=== PATIENT | female | born 1935 | race Caucasian/White ===

== ENCOUNTER 2017-08-18 08:53 | Outpatient (CLI) | payer MEDICARE ==
[~2017-08-18 08:53] MED LIST: AMITRIPTYLINE H10 MG ORAL; AZITHROMYCIN250 MG ORAL; CEPHALEXIN500 MG ORAL; COUMADIN6 MG ORAL; CRANBERRY500 M3 PO; FOLIC ACID1 M1 PO; LEVOTHYROXINE50 MCG ORAL; LOVASTATIN10 MG ORAL; METHOTREXA25 MG/1 ML IJ; SEROQUEL50 MG ORAL; VENLAFAXINE HCL25 MG ORAL; VITAMIN D1000 UNI1 ORAL
[2017-08-18 09:42] LABS: BASOPHILS % (AUTO) 0.9 % (0.0-2.0); EOSINOPHILS % (AUTO) 3.4 % (0.0-3.0); HEMATOCRIT 40.6 % (37.0-47.0); HEMOGLOBIN 13.4 G/DL (12.0-16.0); LYMPHOCYTES % (AUTO) 20.2 % (20.0-45.0); MEAN CORPUSCULAR VOLUME 101 FL (80-99); MONOCYTES % (AUTO) 7.1 % (1.0-10.0); NEUTROPHILS % (AUTO) 68.4 % (45.0-75.0); PLATELET COUNT 238 K/UL (150-450); RED BLOOD COUNT 4.04 M/UL (4.20-5.40); RED CELL DISTRIBUTION WIDTH 13.1 % (11.6-14.8); WHITE BLOOD COUNT 8.9 K/UL (4.8-10.8)
[2017-08-18 09:52] LABS: ALANINE AMINOTRANSFERASE 23 U/L (12-78); ALBUMIN/GLOBULIN RATIO 0.7 (1.0-2.7); ALKALINE PHOSPHATASE 89 U/L (46-116); ANION GAP 2 mmol/L (5-15); ASPARTATE AMINO TRANSFERASE 26 U/L (15-37); BILIRUBIN,TOTAL 0.4 MG/DL (0.2-1.0); BLOOD UREA NITROGEN 19 mg/dL (7-18); CALCIUM 9.4 MG/DL (8.5-10.1); CARBON DIOXIDE 34 MMOL/L (21-32); CHLORIDE 105 MMOL/L (98-107); CREATININE 1.3 MG/DL (0.55-1.30); POTASSIUM 3.8 MMOL/L (3.5-5.1); SODIUM 141 MMOL/L (136-145)
--- NOTE | 2017-08-18 11:16 | Diagnostic Imaging Report ---
Indication: Cough Comparison: 07/21/2014 A single view chest radiograph was obtained. Findings: Lung volumes are low. Reticular markings in the lung appear prominent. Heart is mildly enlarged. Bones are osteopenic. IMPRESSION: Interstitial prominence nonspecific in nature. No significant change
== END 2017-08-18 10:53 | disposition home or self-care (01) ==
LOC: RAD 08:53
DX: R05 Cough (principal); I51.7 Cardiomegaly; M85.80 Other specified disorders of bone density and structure, unspecified site
CPT/HCPCS: 36415; 71045; 80053; 83880; 85025

== ENCOUNTER 2018-11-08 12:09 | Outpatient (CLI) | payer MEDICARE ==
[~2018-11-08 12:09] MED LIST changes: +KEPPRA500 M4 ORAL; +LEXAPRO10 MG ORAL; +NEUDEXTA
[2018-11-08 12:53] LABS: BASOPHILS % (AUTO) 0.8 % (0.0-2.0); EOSINOPHILS % (AUTO) 1.6 % (0.0-3.0); HEMATOCRIT 44.3 % (37.0-47.0); HEMOGLOBIN 14.9 G/DL (12.0-16.0); LYMPHOCYTES % (AUTO) 17.8 % (20.0-45.0); MEAN CORPUSCULAR VOLUME 97 FL (80-99); MONOCYTES % (AUTO) 7.3 % (1.0-10.0); NEUTROPHILS % (AUTO) 72.5 % (45.0-75.0); PLATELET COUNT 291 K/UL (150-450); RED BLOOD COUNT 4.56 M/UL (4.20-5.40); RED CELL DISTRIBUTION WIDTH 12.6 % (11.6-14.8); WHITE BLOOD COUNT 10.7 K/UL (4.8-10.8)
--- NOTE | 2018-11-08 12:54 | Diagnostic Imaging Report ---
Indication: Cough Comparison: August 18, 2017 A single view chest radiograph was obtained. Findings: There is prominence of the pulmonary interstitium nonspecific in nature. Heart size is normal. Lung volumes are low. There is radiopacity projected over the upper lumbar spine consistent with previous kyphoplasty. IMPRESSION: No acute disease
[2018-11-08 13:18] LABS: ALANINE AMINOTRANSFERASE 21 U/L (12-78); ALBUMIN 3.8 G/DL (3.4-5.0); ALBUMIN/GLOBULIN RATIO 0.8 (1.0-2.7); ALKALINE PHOSPHATASE 90 U/L (46-116); ANION GAP 6 mmol/L (5-15); ASPARTATE AMINO TRANSFERASE 23 U/L (15-37); BILIRUBIN,TOTAL 0.5 MG/DL (0.2-1.0); BLOOD UREA NITROGEN 29 mg/dL (7-18); CALCIUM 10.3 MG/DL (8.5-10.1); CARBON DIOXIDE 33 MMOL/L (21-32); CHLORIDE 105 MMOL/L (98-107); CREATININE 1.2 MG/DL (0.55-1.30); POTASSIUM 3.8 MMOL/L (3.5-5.1); SODIUM 144 MMOL/L (136-145)
== END 2018-11-08 14:09 | disposition home or self-care (01) ==
LOC: RAD 12:09
DX: R05 Cough (principal); E03.9 Hypothyroidism, unspecified; E53.8 Deficiency of other specified B group vitamins
CPT/HCPCS: 36415; 71045; 80053; 82607; 83880; 84439; 84443; 85025; 85610

== ENCOUNTER 2019-02-22 11:05 | Inpatient (IN) | payer MEDICARE, OTHER ==
[~2019-02-22] VITALS: Ht 162.6 cm; Wt 63.5 kg
[2019-02-22 11:19] VITALS: BP 113/58
--- NOTE | 2019-02-22 11:22 | NUR ---
ED Nurse Note: PT BROUGHT IN TO ER TODAY FROM HOME BY . AOX0 AND NONRESPONSIVE TO QUESTIONS. PER , PT HAS ADVANCED DEMENTIA AND DOES NOT SPEAK. PT BROUGHT IN PER DR DEE'S RECOMMENDATION DUE TO INCREASING LETHARGY AND INCREASED WBC. AT BEDSIDE, PT IS TACHYCARDIC - HR: 151, TACHYPNEIC - RR: 37, O2SAT 84%, AND FEBRILE - RECTAL TEMP: 102.0. PT PLACED ON 4L VIA NASAL CANNULA, O2 SAT 95% ON 4L. DR SHELTON AWARE OF PT'S VITALS AND AT BEDSIDE FOR EVALUATION. SKIN ASSESSMENT: BLANCHABLE REDNESS NOTED TO PT'S COCCYX AREA.
[2019-02-22] MEDS ORDERED: Acetaminophen 650 MG SUPP RECTAL ONE (11:30)
[2019-02-22 11:46] LABS: HEMATOCRIT 37.3 % (37.0-47.0); HEMOGLOBIN 12.1 G/DL (12.0-16.0); MEAN CORPUSCULAR VOLUME 98 FL (80-99); PLATELET COUNT 228 K/UL (150-450); RED BLOOD COUNT 3.81 M/UL (4.20-5.40); RED CELL DISTRIBUTION WIDTH 13.5 % (11.6-14.8); WHITE BLOOD COUNT 17.3 K/UL (4.8-10.8)
--- NOTE | 2019-02-22 11:50 | NUR ---
ED Nurse Note: XRAY AT BEDSIDE.
--- NOTE | 2019-02-22 11:52 | NUR ---
ED Nurse Note: BOX CATHETER ORDERED BY DR SHELTON. 16F BOX CATHETER PLACED USING STERILE TECHNIQUE. BOX CATHETER DRAINING YELLOW URINE. PT TOLERATED WELL.
[2019-02-22 11:56] LABS: INR 2.9 (0.9-1.1)
[2019-02-22 11:58] LABS: ANION GAP 11 mmol/L (5-15); BLOOD UREA NITROGEN 36 mg/dL (7-18); CALCIUM 9.5 MG/DL (8.5-10.1); CARBON DIOXIDE 28 MMOL/L (21-32); CHLORIDE 106 MMOL/L (98-107); POTASSIUM 3.1 MMOL/L (3.5-5.1); SODIUM 144 MMOL/L (136-145)
[2019-02-22] MEDS ORDERED: Piperacillin/Tazobactam 3.375 GM in NS 110 ML IVPB ONE (12:00)
[2019-02-22 12:01] LABS: APPEARANCE,URINE CLEAR; BILIRUBIN, URINE NEGATIVE (NEGATIVE); GLUCOSE, URINE (UA) NEGATIVE (NEGATIVE); KETONES,URINE NEGATIVE (NEGATIVE); LEUKOCYTE ESTERASE ,URINE 3+ (NEGATIVE); NITRITE,URINE POSITIVE (NEGATIVE); PH,URINE 5 (4.5-8.0); PROTEIN,URINE 3+ (NEGATIVE); UROBILINOGEN,URINE NORMAL MG/DL (0.0-1.0)
[2019-02-22 12:05] LABS: COLOR,URINE YELLOW
[2019-02-22 12:12] LABS: ALANINE AMINOTRANSFERASE 29 U/L (12-78); ALBUMIN 2.7 G/DL (3.4-5.0); ALBUMIN/GLOBULIN RATIO 0.5 (1.0-2.7); ALKALINE PHOSPHATASE 70 U/L (46-116); ASPARTATE AMINO TRANSFERASE 29 U/L (15-37); BILIRUBIN,TOTAL 0.5 MG/DL (0.2-1.0); CKMB < 0.5 NG/ML (0.0-3.6); CREATINE KINASE 63 U/L (26-308)
--- NOTE | 2019-02-22 12:29 | NUR ---
ED Nurse Note: LACTIC REFLEX COLLECTED AND SENT TO LAB.
--- NOTE | 2019-02-22 12:30 | Diagnostic Imaging Report ---
Indication: Cough Comparison: 11/08/2018 A single view chest radiograph was obtained. Findings: Lung volumes are low. Senescent changes noted within the lungs. Heart size is normal. Aorta is ectatic. The bones are osteopenic. Kyphoplasty noted in one of the upper lumbar levels. IMPRESSION: No acute cardiopulmonary disease
[2019-02-22] MEDS ORDERED: WARFARIN SODIUM3 MG ORAL (12:33)
--- NOTE | 2019-02-22 13:10 | NUR ---
ED Nurse Note: DR GALDINO DEE AT BEDSIDE.
[2019-02-22 13:17] VITALS: BP 106/54
--- NOTE | 2019-02-22 13:44 | NUR ---
ED Nurse Note: TELE UNIT CALLED FOR PT REPORT. REPORT GIVEN TO GREGORIA RODRIGUEZ. PT TAKEN UP TO TELE UNIT VIA GURNEY ON HONEY PRODUCER WITH ALL BELONGINGS ACCOMPANIED BY PRIMARY RN AND EMT.
--- NOTE | 2019-02-22 13:52 | Emergency Room Report ---
History of Present Illness General Chief Complaint: Altered Mental Status Source: Patient, Family Member Present Illness HPI Patient presents with reports of elevated white blood cell count evidence of UTI There was report of possible change in mental status however patient's has presented and reports that the patient has severe Alzheimer's And is at her usual mental status Patient presents febrile Again the patient herself is not verbal therefore it does limit the history of present illness There was no reports of vomiting or diarrhea no reports of any rash Allergies: Coded Allergies: CODEINE (Verified Allergy, Unknown, 11/03/17) SULFA (SULFONAMIDE ANTIBIOTICS) (Verified Allergy, Unknown, 11/03/17) SULFAMETHOXAZOLE (Verified Allergy, Unknown, 11/03/17) TRIMETHOPRIM (Verified Allergy, Unknown, 11/03/17) Patient History Limited by: medical condition Past Medical History: see triage record Reviewed Nursing Documentation: PMH: Agreed; PSxH: Agreed Nursing Documentation-PMH Past Medical History: No History, Except For Hx Cardiac Problems: No - DVT on LE Hx Hypertension: No - Rheumatoid arthritis Hx Pacemaker: No Hx Asthma: No Hx COPD: No Hx Diabetes: No Hx Cancer: No Hx Gastrointestinal Problems: No Hx Dialysis: No History Of Psychiatric Problem: No Hx Neurological Problems: Yes - Alzheimer's Hx Cerebrovascular Accident: No Hx Alzheimer's Disease: Yes Hx Seizures: Yes - years ago Review of Systems All Other Systems: limited - Other than the ones mentioned in the history of present illness all others are reviewed however they do stay limited due to the patient's mental status Physical Exam Vital Signs Date Time Temp Pulse Resp B/P (MAP) Pulse Ox O2 Delivery O2 Flow Rate FiO2 02/22/19 11:12 98.1 152 30 113/58 (76) 85 Room Air 02/22/19 11:19 4.0 Sp02 EP Interpretation: reviewed, normal General Appearance: mild distress - tachypneic appears weak Head: normocephalic, atraumatic Eyes: bilateral eye PERRL ENT: dry mucus membranes Neck: supple Respiratory: lungs clear - However mildly tachypneic appearing Cardiovascular #1: tachycardia Gastrointestinal: non tender, soft Musculoskeletal: other - Obvious edema patient attempts to move her right arm however significant lack of evaluation Neurologic: responsive - to Physical stimuli Skin: no rash Lymphatic: no adenopathy Procedures Critical Care Time Critical Care Time 50 minutes for multiple re-evaluations critical presentation is concerning for cardiac cardiopulmonary arrest not including any procedural time Medical Decision Making Diagnostic Impression: Primary Impression: Sepsis Additional Impression: UTI (urinary tract infection) ER Course Multiple differentials and consideration including but not limited to infectious , such as sepsis severe sepsis, other neurological pathology as well Patient's white blood cell count is elevated urine sample does show significant infectious pathology Initially CT was ordered however the reports that the patient is at baseline mental status it was discussed that the patient does have an INR that makes it more concerning for intracranial hemorrhage however in discussion with family as well and the primary physician this will be held Patient's tachycardia has improved Still remains critical secondary to the significant infectious pathology and admitted to a telemetry bed for further care in poor prognosis Labs Test 02/22/19 11:34 02/22/19 11:51 02/22/19 12:24 White Blood Count 17.3 K/UL (4.8-10.8) Red Blood Count 3.81 M/UL (4.20-5.40) Hemoglobin 12.1 G/DL (12.0-16.0) Hematocrit 37.3 % (37.0-47.0) Mean Corpuscular Volume 98 FL (80-99) Mean Corpuscular Hemoglobin 31.8 PG (27.0-31.0) Mean Corpuscular Hemoglobin Concent 32.5 G/DL (32.0-36.0) Red Cell Distribution Width 13.5 % (11.6-14.8) Platelet Count 228 K/UL (150-450) Mean Platelet Volume 6.1 FL (6.5-10.1) Neutrophils (%) (Auto) % (45.0-75.0) Lymphocytes (%) (Auto) % (20.0-45.0) Monocytes (%) (Auto) % (1.0-10.0) Eosinophils (%) (Auto) % (0.0-3.0) Basophils (%) (Auto) % (0.0-2.0) Differential Total Cells Counted 100 Neutrophils % (Manual) 90 % (45-75) Lymphocytes % (Manual) 5 % (20-45) Monocytes % (Manual) 5 % (1-10) Eosinophils % (Manual) 0 % (0-3) Basophils % (Manual) 0 % (0-2) Band Neutrophils 0 % (0-8) Platelet Estimate Adequate Platelet Morphology Normal Red Blood Cell Morphology Normal Prothrombin Time 28.9 SEC (9.30-11.50) Prothromb Time International Ratio 2.9 (0.9-1.1) Activated Partial Thromboplast Time 51 SEC (23-33) Sodium Level 144 MMOL/L (136-145) Potassium Level 3.1 MMOL/L (3.5-5.1) Chloride Level 106 MMOL/L (98-107) Carbon Dioxide Level 28 MMOL/L (21-32) Anion Gap 11 mmol/L (5-15) Blood Urea Nitrogen 36 mg/dL (7-18) Creatinine 2.0 MG/DL (0.55-1.30) Estimat Glomerular Filtration Rate mL/min (>60) Glucose Level 131 MG/DL (74-106) Lactic Acid Level 2.90 mmol/L (0.4-2.0) 1.80 mmol/L (0.66-2.22) Calcium Level 9.5 MG/DL (8.5-10.1) Total Bilirubin 0.5 MG/DL (0.2-1.0) Aspartate Amino Transf (AST/SGOT) 29 U/L (15-37) Alanine Aminotransferase (ALT/SGPT) 29 U/L (12-78) Alkaline Phosphatase 70 U/L (46-116) Total Creatine Kinase 63 U/L (26-308) Creatine Kinase MB < 0.5 NG/ML (0.0-3.6) Creatine Kinase MB Relative Index Troponin I 0.021 ng/mL (0.000-0.056) Pro-B-Type Natriuretic Peptide 1911 pg/mL (0-125) Total Protein 8.3 G/DL (6.4-8.2) Albumin 2.7 G/DL (3.4-5.0) Globulin 5.6 g/dL Albumin/Globulin Ratio 0.5 (1.0-2.7) Lipase 298 U/L (73-393) Urine Color Yellow Urine Appearance Clear Urine pH 5 (4.5-8.0) Urine Specific [place] 1.015 (1.005-1.035) Urine Protein 3+ (NEGATIVE) Urine Glucose (UA) Negative (NEGATIVE) Urine Ketones Negative (NEGATIVE) Urine Blood 5+ (NEGATIVE) Urine Nitrite Positive (NEGATIVE) Urine Bilirubin Negative (NEGATIVE) Urine Urobilinogen Normal MG/DL (0.0-1.0) Urine Leukocyte Esterase 3+ (NEGATIVE) Urine RBC 2-4 /HPF (0 - 2) Urine WBC 15-20 /HPF (0 - 2) Urine Squamous Epithelial Cells Few /LPF (NONE/OCC) Urine Bacteria Moderate /HPF (NONE) EKG Diagnostic Results Rate: tachycardiac Rhythm: other ST Segments: other - Specific ST changes Rhythm Strip Diag. Results EP Interpretation: yes Rate: 120 Rhythm: no PVC's, no ectopy Chest X-Ray Diagnostic Results Chest X-Ray Diagnostic Results : Chest X-Ray Ordered: Yes # of Views/Limited/Complete: 1 View Indication: Shortness of Breath EP Interpretation: Yes Interpretation: no consolidation, no effusion, no pneumothorax Impression: No acute disease - Patient right lower lobe haziness questionable mild elevated right hemidiaphragm Electronically Signed by: DO Francois Madrid Vital Signs Date Time Temp Pulse Resp B/P (MAP) Pulse Ox O2 Delivery O2 Flow Rate FiO2 02/22/19 13:45 119 31 108/59 92 Nasal Cannula 4.0 02/22/19 13:17 101.0 Status: improved Disposition: ADMITTED INPATIENT Condition: Critical Referrals: Kolby Salazar MD (PCP) Karlos Lucas DO Feb 22, 2019 13:52
[2019-02-22 14:00] VITALS: BP 112/69
--- NOTE | 2019-02-22 14:00 | NUR ---
NURSE NOTES: Patient arrived from ER with . Belonging checklist was signed. v/s taken. conveyor monitor placed. Patient is tachypnea sat 90% on 4L. Patient is alert and aphasic. Skin is intact. Patient was changed. Will continue plan of care.
[2019-02-22 16:00] VITALS: BP 109/70
--- NOTE | 2019-02-22 16:00 | NUR ---
NURSE NOTES: Transferred patient to 220-2 from 201-1.
--- NOTE | 2019-02-22 16:15 | History & Physical ---
History and Physical History & Physicial Date of Admission: February 22, 2019. Patient Identification: Ms. Snider is an 83-year-old woman who was brought to the emergency department because of increased lethargy and hypoxia. History of Present Illness: Ms. Snider is a patient with multiple chronic medical problems and as a result significant functional deficits. Most notably she has advanced dementia and requires 24-hour care for all ADLs. Yesterday the patient was seen in the office with some lethargy and decreased responsiveness. The symptoms have begun roughly 2 days before, at which time laboratory studies were obtained including a urinalysis which revealed pyuria with 20-30 white cells, 3+ leukocyte esterase, and significant evidence of heme in the urine. These findings were suggestive of urinary tract infection. However the patient's caregivers and reported that the patient had adequate fluid intake and oral intake. There also was no reported fever. Therefore, it was elected to postpone this antibiotic therapy until culture results return. Patient was to have forced fluids and cranberry extract. This morning the patient was noted to be considerably more lethargic and the home health nurse documented oxygen saturation as low as 84%. Is recommended the patient be brought to the emergency department for further evaluation. In the emergency department the patient was noted to be febrile, and lab values revealed significant leukocytosis with left shift, a lactate of 2.9, acute kidney injury, and a fever. Patient was felt to have evidence of severe sepsis with a urinary source most likely. Patient was given intravenous hydration and a dose of Zosyn in the emergency department. She is admitted for further evaluation and treatment. Currently the patient is seen lying in bed. 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 Patient's initially was tachycardic but this is slowed somewhat with the input intravenous hydration. She was also somewhat tachypneic but does not appear in respiratory distress. Increased respiratory rate is most likely associated with septic picture as well. Patient's caregiver and report no other new symptomatology, with no evident physical distress or symptoms suggestive of chest pain. Subsequent to her initial presentation, the results of the urine culture were obtained at the office, revealing resistance to Unasyn and ampicillin as well as trimethoprim sulfa and Macrodantin. Past Medical History: 1. History of prior urinary tract infections with associated encephalopathy and systemic symptoms. 2. Advanced cognitive dysfunction primarily due to Alzheimer disease. Consider contributing components of small vessel cerebrovascular disease and B12 deficiency. 3. Multifactorial gait disorder. 4. History of fall with rib fractures. 5. History of rheumatoid arthritis, on Simponi. 6. Hypothyroidism. 7. Hyperlipidemia. 8. Seizure disorder. 9. Osteopenia. 10. History of migraines. 11. History of depression with anxiety and paranoia. 12. 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 13. 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 14. Mitral valve prolapse. 15. Status post cataract surgery, left eye. 16. Status post appendectomy. 17. Osteoporosis, treated with Denosumab. Medications: 1. Vitamin D3 3000 units qod. 2. Cyanocobalamin 1000 mcg IM monthly. 3. Prolia every 6 months, last administered approximately 3 months ago 4. Nuedexta twice daily. 5. Lexapro 20 mg daily. 6. Folate 1 mg daily. 7. Simponi monthly per Dr. Nava. 8. Levothyroxine 50 mcg 6 times a week. 9. Lovastatin 40 mg nightly. 10. Belsomra 10 mg nightly. 11. Warfarin 3 mg daily except for Wednesdays, 4 mg on Wednesdays. 12. Keppra 500 mg twice daily. 13. Cranberry pills. Allergies: Sulfa drugs including trimethoprim/sulfa. Codeine. Social History: The patient lives at home with her and there is a part-time caregiver who assists in care. She is functionally entirely dependent at this point requiring full-time care with all activities in daily living. Review of Systems: The patient is unable to respond to any questions. Does have advanced dementia. Her clinical changes are essentially as described above and reported by the son. Physical Examination: Blood pressure 113/58, heart rate 150 and regular, respiratory rate 37, temperature 102.0 rectally, oxygen saturation 95% on 4 L of oxygen. Generally: Lethargic with. No evidence of recognition or attempt to communicate. Head and neck: Normocephalic, atraumatic. Normal range of motion with no evident masses. Chest: Diminished and distant breath sounds no wheezing. Cardiovascular: Regular rhythm, normal systolic murmur not appreciated. Abdomen: Normal bowel sounds soft without masses or organomegaly. Patient appears to respond somewhat to palpation in the suprapubic area suggesting possible tenderness. Extremities: No apparent calf tenderness, no distal edema. Neurologic: Limited examination due to mental status but no overt localization. Skin: Superficial sacrococcygeal erythema noted. Laboratory Data: WBC 17.3, hematocrit 37.3, MCV 98, platelet count 228, 90% neutrophils. Sodium 144, potassium 3.1, chloride 106, bicarb 28, BUN 36, creatinine 2.0, glucose 131 , lactate 2.9 with repeat 1.8, calcium 9.5, total bilirubin 0.5, AST 29, ALT 29 , alkaline phosphatase 70 troponin 0 0.021, proBNP 1911, total protein 8.3, albumin 2.7, lipase 298. INR 2.9, PTT 51. Urinalysis is notable for 3+ protein 5+ blood positive nitrates 3+ leukocyte esterase 2-4 RBCs 15-20 WBCs and moderate bacteria. Chest x-ray: Low lung volumes chronic elevation of right hemidiaphragm, no acute cardiopulmonary disease noted. Impression/Plan: 1. Probable severe sepsis due to E. coli urinary tract infection. Given sensitivities from prior culture will discontinue Zosyn and start ceftriaxone. 2. Intravascular volume depletion associated with sepsis. Continue intravenous hydration with electrolyte supplementation. 3. Acute kidney injury, likely prerenal. 4. Encephalopathy associated with sepsis. 5. Hypoxia likely associated with hypoventilation due to RUG DYER HELPER effects of sepsis. Monitor and supplement as necessary. 6. Multiple chronic medical problems adequately controlled on current therapy. Hold nonformulary medications. Patient's status treatment plans and prognosis were discussed in detail with the patient's who concurs with proceeding in this fashion. Additional therapy and diagnostic studies will be considered depending on the patient's initial response to therapy and laboratory results. Kolby Salazar MD Feb 22, 2019 16:15
[2019-02-22] MEDS ORDERED: Warfarin Sodium 3mg ORAL SCH (17:00)
[2019-02-22] MEDS: D5 1/2NS w/KCl 20mEq 1,000 ML IV SCH (17:34)
[2019-02-22] MEDS: cefTRIAXone 1 GM in D5W 55 ML IVPB SCH (17:34)
--- NOTE | 2019-02-22 19:28 | NUR ---
NURSE NOTES: Gave report to [place].
--- NOTE | 2019-02-22 19:28 | NUR ---
NURSE NOTES: Received patient from Malachi KINNEY. Patient in bed, private caregiver at bedside. On 4L NC, no s/s of respiratory distress. Non-verbal, eye tracking only. Right forearm 20 gauge iv intact with 1/2 NS 20MEQ KCL infusing at 100m/hr. Bed in low position, locked, bed alarm on, call light within reach.
[2019-02-22 20:00] VITALS: BP 126/65
[2019-02-22] MEDS: Nuedexta Capsule 20/10mg ORAL SCH (20:19)
[2019-02-22 22:20] VITALS: BP 128/79
--- NOTE | 2019-02-22 22:25 | NUR ---
NURSE NOTES: Patient had a episode of sinus tachycardia 130's. No change in LOC. BP 128/79, HR 136, RR 26, 94% on 4L NC, no signs of distress.
[2019-02-23] VITALS: BP 119/76
[2019-02-23] MEDS: D5 1/2NS w/KCl 20mEq 1,000 ML IV SCH ×3 (03:06→23:24)
[2019-02-23 04:00] VITALS: BP 124/75
[2019-02-23 08:00] VITALS: BP 129/61
[2019-02-23 08:12] LABS: BASOPHILS % (AUTO) 0.2 % (0.0-2.0); EOSINOPHILS % (AUTO) 1.3 % (0.0-3.0); HEMATOCRIT 30.2 % (37.0-47.0); HEMOGLOBIN 9.7 G/DL (12.0-16.0); LYMPHOCYTES % (AUTO) 9.4 % (20.0-45.0); MEAN CORPUSCULAR VOLUME 100 FL (80-99); MONOCYTES % (AUTO) 5.2 % (1.0-10.0); NEUTROPHILS % (AUTO) 83.8 % (45.0-75.0); PLATELET COUNT 158 K/UL (150-450); RED BLOOD COUNT 3.02 M/UL (4.20-5.40); RED CELL DISTRIBUTION WIDTH 14.3 % (11.6-14.8); WHITE BLOOD COUNT 11.3 K/UL (4.8-10.8)
--- NOTE | 2019-02-23 08:16 | NUR ---
NURSE NOTES: Received patient from Radha Burris. Patient nonverbal, lying comfortably in bed. No signs and symptoms of pain or discomfort. Private caregiver at bedside. safety precautions in place. will anticipate and attend to patients needs.
[2019-02-23 08:17] LABS: ANION GAP 11 mmol/L (5-15); BLOOD UREA NITROGEN 25 mg/dL (7-18); CALCIUM 8.4 MG/DL (8.5-10.1); CARBON DIOXIDE 24 MMOL/L (21-32); CHLORIDE 112 MMOL/L (98-107); CREATININE 1.5 MG/DL (0.55-1.30); POTASSIUM 3.3 MMOL/L (3.5-5.1); SODIUM 147 MMOL/L (136-145)
[2019-02-23 08:27] LABS: INR 3.9 (0.9-1.1)
[2019-02-23] MEDS: Vitamin D 1000 IU Tab ORAL SCH (09:42)
[2019-02-23] MEDS: Nuedexta Capsule 20/10mg ORAL SCH ×2 (09:42→21:09)
[2019-02-23 12:00] VITALS: BP 138/73
[2019-02-23 16:00] VITALS: BP 135/74
[2019-02-23] MEDS: cefTRIAXone 1 GM in D5W 55 ML IVPB SCH (17:21)
--- NOTE | 2019-02-23 18:58 | Geriatric Progress Note ---
Assessment/Plan Problems: (1) Acute kidney injury (2) Tachyarrhythmia (3) Advanced dementia (4) UTI (urinary tract infection) (5) Sepsis (6) B12 deficiency (7) Gait instability (8) Rheumatoid arthritis (9) Hypothyroidism (10) Hyperlipidemia (11) Seizure disorder (12) Osteoporosis (13) History of pulmonary embolism Assessment/Plan Patient clinically better. Diaphoresis suggests breaking fever, with documented Tmax 99.1. Continue Ceftiaxone for presumed E coli based on outpatient C&S. Await ED C&S. SINA due to prerenal status, sepsis, improved. Continue IV hydration. Tachycardia presumably due to sinus node dysfunction in setting of sepsis. Monitor for recurrence. Oral intake returning toward baseline. Coagulopathy likely due to sepsis, antibiotics, affecting warfarin effect. Hold for now, monitor INR. To early to attempt to mobilize significantly. Continue current therapy otherwise. Discussed with: patient, hospital staff, other - private caregiver Subjective Interval Events Patient definitely more alert, tracks, hint of smile. Caregiver reports good intake, normal b.m. this am. Staff reports no new issues, but last night with episode of sinus tach to 130s for 5 minutes, with stable bp, resolving spontaneously. Diet clarified to honey thick liquids. INR 3.9, Wbc decreasing, SINA improved. Urine growing Gm- jil. Subjective Patient non-verbal. Geriatric Geriatric Last 24 Hour Vital Signs Date Time Temp Pulse Resp B/P (MAP) Pulse Ox O2 Delivery O2 Flow Rate FiO2 02/23/19 18:00 85 02/23/19 16:00 99.1 82 21 135/74 (94) 97 02/23/19 12:00 81 02/23/19 12:00 98.0 83 21 138/73 (94) 96 02/23/19 09:00 Nasal Cannula 4.0 02/23/19 08:00 98.1 88 20 129/61 (83) 96 02/23/19 08:00 83 02/23/19 04:00 98.8 83 16 124/75 (91) 95 02/23/19 04:00 79 02/23/19 00:00 97.9 80 16 119/76 (90) 96 02/23/19 00:00 83 02/22/19 23:01 81 02/22/19 22:20 136 26 128/79 (95) 94 02/22/19 21:00 Nasal Cannula 4.0 02/22/19 20:00 98.5 84 16 126/65 (85) 94 02/22/19 20:00 81 Intake and Output 02/22/19 02/23/19 18:59 06:59 Output Total 150 ml 400 ml Balance -150 ml -400 ml Output Urine Total 150 ml 400 ml # Voids 1 # Bowel Movements 1 Laboratory Tests Test 02/23/19 07:25 White Blood Count 11.3 K/UL (4.8-10.8) H Red Blood Count 3.02 M/UL (4.20-5.40) L Hemoglobin 9.7 G/DL (12.0-16.0) L Hematocrit 30.2 % (37.0-47.0) L Mean Corpuscular Volume 100 FL (80-99) H Mean Corpuscular Hemoglobin 32.0 PG (27.0-31.0) H Mean Corpuscular Hemoglobin Concent 32.0 G/DL (32.0-36.0) Red Cell Distribution Width 14.3 % (11.6-14.8) Platelet Count 158 K/UL (150-450) Mean Platelet Volume 6.3 FL (6.5-10.1) L Neutrophils (%) (Auto) 83.8 % (45.0-75.0) H Lymphocytes (%) (Auto) 9.4 % (20.0-45.0) L Monocytes (%) (Auto) 5.2 % (1.0-10.0) Eosinophils (%) (Auto) 1.3 % (0.0-3.0) Basophils (%) (Auto) 0.2 % (0.0-2.0) Prothrombin Time 39.0 SEC (9.30-11.50) H Prothromb Time International Ratio 3.9 (0.9-1.1) H Sodium Level 147 MMOL/L (136-145) H Potassium Level 3.3 MMOL/L (3.5-5.1) L Chloride Level 112 MMOL/L (98-107) H Carbon Dioxide Level 24 MMOL/L (21-32) Anion Gap 11 mmol/L (5-15) Blood Urea Nitrogen 25 mg/dL (7-18) H Creatinine 1.5 MG/DL (0.55-1.30) H Estimat Glomerular Filtration Rate mL/min (>60) Glucose Level 168 MG/DL (74-106) H Calcium Level 8.4 MG/DL (8.5-10.1) L Current Medications Medications (Trade) Dose Ordered Sig/Tres Route PRN Reason Start Time Stop Time Status Last Admin Dose Admin Ceftriaxone Sodium 1 gm/ Dextrose 55 ml @ 110 mls/hr Q24H IVPB 02/22/19 17:00 03/01/19 16:59 02/23/19 17:21 Dextromethorphan/ Quinidine (Nuedexta Capsule) 1 cap Q12HR ORAL 02/22/19 21:00 03/24/19 20:59 02/23/19 09:42 Dextrose (Dextrose 50%) 25 ml Q30M PRN IV Hypoglycemia 02/22/19 15:30 03/24/19 15:29 Dextrose (Dextrose 50%) 50 ml Q30M PRN IV Hypoglycemia 02/22/19 15:30 03/24/19 15:29 Dextrose/ Electrolytes 1,000 ml @ 100 mls/hr Q10H IV 02/22/19 17:00 03/24/19 16:59 02/23/19 13:23 Escitalopram Oxalate (Lexapro) 20 mg DAILY ORAL 02/23/19 09:00 03/25/19 08:59 02/23/19 09:43 Folic Acid (Folate) 1 mg DAILY ORAL 02/23/19 09:00 03/25/19 08:59 02/23/19 09:42 Levetiracetam (Keppra) 500 mg EVERY 12 HOURS ORAL 02/22/19 21:00 03/24/19 20:59 02/23/19 09:42 Levothyroxine Sodium (Synthroid) 50 mcg ACBREAKFAST ORAL 02/23/19 06:30 03/25/19 06:29 02/23/19 05:57 Vitamin D (Vitamin D) 1,000 intlu DAILY ORAL 02/23/19 09:00 03/25/19 08:59 02/23/19 09:42 Height (Feet): 5 Height (Inches): 4.00 Weight (Pounds): 140 General Appearance: no apparent distress, alert, other - diaphoretic Head: normocephalic, atraumatic Eyes: bilateral anicteric Neck: full range of motion, no mass Respiratory: lungs clear, decreased breath sounds Cardiovascular: regular rate, rhythm Gastrointestinal: normal bowel sounds, non tender, soft, no mass, no organomegaly Musculoskeletal: no calf tenderness Edema: no edema noted Generalized Neurologic: no new focality Kolby Salazar MD Feb 23, 2019 18:58
--- NOTE | 2019-02-23 19:53 | NUR ---
NURSE NOTES: Report given to Radha Burris.Plan of care endorsed.
[2019-02-23 20:00] VITALS: BP 147/81
--- NOTE | 2019-02-23 21:00 | NUR ---
NURSE NOTES: Patient had a temp of 100.6 ax, RR 40, O2sat 92%. Notified Dr. Salazar and received orders for tylenol and blood culture x1. Addendum: 02/23/19 at 2157 by [place] Hernandez RN NURSE NOTES: Applied iced wash cloths on patient.
[2019-02-24] VITALS: BP 119/55
[2019-02-24 04:00] VITALS: BP 130/85
[2019-02-24 07:09] LABS: BASOPHILS % (AUTO) 0.7 % (0.0-2.0); EOSINOPHILS % (AUTO) 4.6 % (0.0-3.0); HEMATOCRIT 30.3 % (37.0-47.0); HEMOGLOBIN 9.5 G/DL (12.0-16.0); LYMPHOCYTES % (AUTO) 20.1 % (20.0-45.0); MEAN CORPUSCULAR VOLUME 101 FL (80-99); MONOCYTES % (AUTO) 11.1 % (1.0-10.0); NEUTROPHILS % (AUTO) 63.4 % (45.0-75.0); PLATELET COUNT 171 K/UL (150-450); RED CELL DISTRIBUTION WIDTH 13.9 % (11.6-14.8); WHITE BLOOD COUNT 7.2 K/UL (4.8-10.8)
[2019-02-24 07:20] LABS: ALANINE AMINOTRANSFERASE 45 U/L (12-78); ALBUMIN 1.9 G/DL (3.4-5.0); ALBUMIN/GLOBULIN RATIO 0.4 (1.0-2.7); ALKALINE PHOSPHATASE 56 U/L (46-116); ANION GAP 4 mmol/L (5-15); ASPARTATE AMINO TRANSFERASE 48 U/L (15-37); BILIRUBIN,TOTAL 0.2 MG/DL (0.2-1.0); BLOOD UREA NITROGEN 18 mg/dL (7-18); CALCIUM 8.9 MG/DL (8.5-10.1); CARBON DIOXIDE 28 MMOL/L (21-32); CHLORIDE 113 MMOL/L (98-107); CREATININE 1.3 MG/DL (0.55-1.30); SODIUM 145 MMOL/L (136-145)
[2019-02-24 07:25] LABS: INR 3.5 (0.9-1.1)
--- NOTE | 2019-02-24 07:45 | NUR ---
Received patient from Radha Burris. patient is awake in bed. roller leveler at bed side. Patient is comfortably lying in bed. No signs/symptoms of pain or discomfort. Patient afebrile Temp 97 axillary. Will anticipate needs and monitor throughout this shift.
[2019-02-24 08:00] VITALS: BP 133/64
--- NOTE | 2019-02-24 08:17 | NUR ---
Received call from Myriam of Lab. Patients blood culture from 02/22 came back positive of gram negative rods 2/[address] Salazar made aware. No new orders received will follow.
[2019-02-24] MEDS: Nuedexta Capsule 20/10mg ORAL SCH ×2 (08:30→20:48)
[2019-02-24] MEDS: Vitamin D 1000 IU Tab ORAL SCH (08:30)
[2019-02-24] MEDS: D5 1/2NS w/KCl 20mEq 1,000 ML IV SCH ×2 (09:48→17:12)
[2019-02-24 11:43] VITALS: BP 131/74
--- NOTE | 2019-02-24 15:05 | Geriatric Progress Note ---
Assessment/Plan Problems: (1) Acute kidney injury (2) Tachyarrhythmia (3) Advanced dementia (4) UTI (urinary tract infection) (5) Sepsis (6) B12 deficiency (7) Gait instability (8) Rheumatoid arthritis (9) Hypothyroidism (10) Hyperlipidemia (11) Seizure disorder (12) Osteoporosis (13) History of pulmonary embolism Assessment/Plan Gm- bacteremia confirming sepsis. Most likely same E coli, but awaiting identification and sensitivities. Continue ceftriaxone for now, consider change to cefazolin, but logistically, once a day dosing may require continuation. Labs all showing improvement consistent with adequate treatment of sepsis. Will decrease IVF rate given improvement. Discussed d/c plans with , may wish to d/c to home with [facility] to complete course of antibiotics for ten days for bacteremia. Entire pathological etiology reviewed with at his request. Mobilize as tolerated with P.T. Continue other treatment. Discussed with: patient, family, hospital staff, other - private caregiver Subjective Interval Events Patient alert, non-verbal as per baseline, not diaphoretic or in any distress. Had normal bowel movement. Per caregiver eating, drinking well. Last night with low grade temp, additional blood C&S drawn. Today afebrile, with no diaphoresis. Wbc now normal, other labs improved as well, with improvement in azotemia. Urine growing E coli, resistant to ampicillin, trimethoprim/sulfa. Blood C&S x 2: growing Gm- jil. INR 3.5. Telemetry reveals some possible episodes of p a fib with RVR, although mostly sinus tach previously. Currently NSR. Subjective Patient non-verbal. Geriatric Geriatric Last 24 Hour Vital Signs Date Time Temp Pulse Resp B/P (MAP) Pulse Ox O2 Delivery O2 Flow Rate FiO2 02/24/19 11:43 97.1 74 20 131/74 (93) 98 02/24/19 09:00 80 02/24/19 08:00 Nasal Cannula 4.0 02/24/19 08:00 97.0 74 18 133/64 (87) 97 02/24/19 04:00 74 02/24/19 04:00 97.2 72 27 130/85 (100) 98 02/24/19 00:00 72 02/24/19 00:00 97.4 72 28 119/55 (76) 96 02/23/19 22:10 99.0 02/23/19 22:09 99.0 02/23/19 21:00 Nasal Cannula 4.0 02/23/19 20:00 88 02/23/19 20:00 100.6 82 40 147/81 (103) 92 02/23/19 18:00 85 02/23/19 16:00 99.1 82 21 135/74 (94) 97 Intake and Output 02/23/19 02/24/19 19:00 07:00 Output Total 700 ml 600 ml Balance -700 ml -600 ml Output Urine Total 700 ml 600 ml Laboratory Tests Test 02/24/19 05:35 White Blood Count 7.2 K/UL (4.8-10.8) Red Blood Count 3.00 M/UL (4.20-5.40) L Hemoglobin 9.5 G/DL (12.0-16.0) L Hematocrit 30.3 % (37.0-47.0) L Mean Corpuscular Volume 101 FL (80-99) H Mean Corpuscular Hemoglobin 31.7 PG (27.0-31.0) H Mean Corpuscular Hemoglobin Concent 31.3 G/DL (32.0-36.0) L Red Cell Distribution Width 13.9 % (11.6-14.8) Platelet Count 171 K/UL (150-450) Mean Platelet Volume 6.3 FL (6.5-10.1) L Neutrophils (%) (Auto) 63.4 % (45.0-75.0) Lymphocytes (%) (Auto) 20.1 % (20.0-45.0) Monocytes (%) (Auto) 11.1 % (1.0-10.0) H Eosinophils (%) (Auto) 4.6 % (0.0-3.0) H Basophils (%) (Auto) 0.7 % (0.0-2.0) Prothrombin Time 34.4 SEC (9.30-11.50) H Prothromb Time International Ratio 3.5 (0.9-1.1) H Sodium Level 145 MMOL/L (136-145) Potassium Level 4.0 MMOL/L (3.5-5.1) Chloride Level 113 MMOL/L (98-107) H Carbon Dioxide Level 28 MMOL/L (21-32) Anion Gap 4 mmol/L (5-15) L Blood Urea Nitrogen 18 mg/dL (7-18) Creatinine 1.3 MG/DL (0.55-1.30) Estimat Glomerular Filtration Rate mL/min (>60) Glucose Level 106 MG/DL (74-106) Calcium Level 8.9 MG/DL (8.5-10.1) Total Bilirubin 0.2 MG/DL (0.2-1.0) Aspartate Amino Transf (AST/SGOT) 48 U/L (15-37) H Alanine Aminotransferase (ALT/SGPT) 45 U/L (12-78) Alkaline Phosphatase 56 U/L (46-116) Total Protein 6.3 G/DL (6.4-8.2) L Albumin 1.9 G/DL (3.4-5.0) L Globulin 4.4 g/dL Albumin/Globulin Ratio 0.4 (1.0-2.7) L Current Medications Medications (Trade) Dose Ordered Sig/Tres Route PRN Reason Start Time Stop Time Status Last Admin Dose Admin Acetaminophen (Tylenol) 650 mg Q4H PRN ORAL Mild Pain/Temp > 100.0 02/23/19 20:45 03/25/19 20:44 02/23/19 21:09 Ceftriaxone Sodium 1 gm/ Dextrose 55 ml @ 110 mls/hr Q24H IVPB 02/22/19 17:00 03/01/19 16:59 02/23/19 17:21 Dextromethorphan/ Quinidine (Nuedexta Capsule) 1 cap Q12HR ORAL 02/22/19 21:00 03/24/19 20:59 02/24/19 08:30 Dextrose (Dextrose 50%) 25 ml Q30M PRN IV Hypoglycemia 02/22/19 15:30 03/24/19 15:29 Dextrose (Dextrose 50%) 50 ml Q30M PRN IV Hypoglycemia 02/22/19 15:30 03/24/19 15:29 Dextrose/ Electrolytes 1,000 ml @ 100 mls/hr Q10H IV 02/22/19 17:00 03/24/19 16:59 02/24/19 09:48 Escitalopram Oxalate (Lexapro) 20 mg DAILY ORAL 02/23/19 09:00 03/25/19 08:59 02/24/19 08:30 Folic Acid (Folate) 1 mg DAILY ORAL 02/23/19 09:00 03/25/19 08:59 02/24/19 08:30 Levetiracetam (Keppra) 500 mg EVERY 12 HOURS ORAL 02/22/19 21:00 03/24/19 20:59 02/24/19 08:30 Levothyroxine Sodium (Synthroid) 50 mcg ACBREAKFAST ORAL 02/23/19 06:30 03/25/19 06:29 02/24/19 06:31 Vitamin D (Vitamin D) 1,000 intlu DAILY ORAL 02/23/19 09:00 03/25/19 08:59 02/24/19 08:30 Height (Feet): 5 Height (Inches): 4.00 Weight (Pounds): 140 General Appearance: no apparent distress, alert, non-toxic Head: normocephalic, atraumatic Eyes: bilateral anicteric Neck: full range of motion, no mass Respiratory: lungs clear, decreased breath sounds Cardiovascular: regular rate, rhythm Gastrointestinal: normal bowel sounds, non tender, soft, no mass, no organomegaly Musculoskeletal: no calf tenderness Edema: no edema noted Generalized Neurologic: no new focality Kolby Salazar MD Feb 24, 2019 15:05
--- NOTE | 2019-02-24 15:22 | Cardiology Report ---
APPROVED REPORT EKG Measurement Heart [id number] Normal sinus rhythm Anterior infarct, age undetermined Cannot exclude inferior infarct, age undetermined Abnormal ECG
[2019-02-24 16:00] VITALS: BP 123/73
[2019-02-24] MEDS: cefTRIAXone 1 GM in D5W 55 ML IVPB SCH (17:09)
[2019-02-24] MEDS ORDERED: LOVASTATIN40 MG ORAL (19:16)
[2019-02-24] MEDS ORDERED: CYANOCOBAL1000 MCG/2 IJ (19:16)
[2019-02-24] MEDS ORDERED: BELSOMRA10 MG PO (19:16)
[2019-02-24] MEDS ORDERED: ESCITALOPRAM OX20 MG ORAL (19:16)
[2019-02-24] MEDS ORDERED: NUEDEXTA 20-101 EAC1 PO (19:16)
[2019-02-24] MEDS ORDERED: SEROQUEL25 MG ORAL (19:16)
--- NOTE | 2019-02-24 19:38 | NUR ---
HAND-OFF: Report given to Radha Campos.Plan of care endorsed.
--- NOTE | 2019-02-24 19:40 | NUR ---
NURSE NOTES: Got report from Ayanna KINNEY. Pt in stable condition. Denies any pain. No s/s of distress or discomfort noted. Pt resting in bed comfortably. Bed in low and locked position, call light within reach, bedside table within reach. Continue to monitor.
[2019-02-24 20:00] VITALS: BP 155/83
[2019-02-25] VITALS: BP 159/88
[2019-02-25 03:57] VITALS: BP 142/84
--- NOTE | 2019-02-25 07:38 | NUR ---
HAND-OFF: Report given to Ayleen KINNEY. Endorsed plan of care.
--- NOTE | 2019-02-25 07:38 | NUR ---
HAND-OFF: Report given to Ayleen KINNEY. endorsed plan of care.
--- NOTE | 2019-02-25 07:39 | NUR ---
NURSE NOTES: Received report from GREGORIA Lee. The patient is having a breakfast on the bed with the personalized living assistant's assistance at the bed without acute distress or shortness of breath. The patient's bed in the lowest position, call light in reach, and fall and aspiration precaution reinforced. IV site on R FA 20G intact and patent. Will continue plan of care.
[2019-02-25 08:00] VITALS: BP 143/72
[2019-02-25 08:03] LABS: BASOPHILS % (AUTO) 0.9 % (0.0-2.0); EOSINOPHILS % (AUTO) 3.5 % (0.0-3.0); HEMATOCRIT 31.9 % (37.0-47.0); HEMOGLOBIN 10.2 G/DL (12.0-16.0); LYMPHOCYTES % (AUTO) 18.4 % (20.0-45.0); MEAN CORPUSCULAR VOLUME 100 FL (80-99); MONOCYTES % (AUTO) 9.1 % (1.0-10.0); NEUTROPHILS % (AUTO) 68.1 % (45.0-75.0); PLATELET COUNT 193 K/UL (150-450); RED CELL DISTRIBUTION WIDTH 14.2 % (11.6-14.8)
[2019-02-25 08:08] LABS: INR 2.6 (0.9-1.1)
[2019-02-25] MEDS: Nuedexta Capsule 20/10mg ORAL SCH ×2 (08:11→21:23)
[2019-02-25] MEDS: Vitamin D 1000 IU Tab ORAL SCH (08:11)
[2019-02-25 08:39] LABS: ANION GAP 8 mmol/L (5-15); BLOOD UREA NITROGEN 14 mg/dL (7-18); CALCIUM 9.3 MG/DL (8.5-10.1); CARBON DIOXIDE 25 MMOL/L (21-32); CHLORIDE 110 MMOL/L (98-107); CREATININE 1.2 MG/DL (0.55-1.30); SODIUM 143 MMOL/L (136-145)
[2019-02-25 12:00] VITALS: BP 138/78
[2019-02-25] MEDS: D5 1/2NS w/KCl 20mEq 1,000 ML IV SCH (12:36)
--- NOTE | 2019-02-25 13:14 | NUR ---
NURSE NOTES: The family member at the bedside. The patient is resting on the bed without acute distress or shortness of breath. Will continue plan of care.
--- NOTE | 2019-02-25 13:57 | NUR ---
NURSE NOTES: Notified Dr. Salazar regarding Magnesium level of 1.7. Will carry out the order as soon as receives it. Will continue plan of care.
--- NOTE | 2019-02-25 14:29 | NUR ---
NURSE NOTES: Received call back from Dr. Salazar regarding Magesium level of 1.7. Dr. Salazar ordered 2g of Magnesium through IV. Will carry out the order now. Will continue plan of care.
--- NOTE | 2019-02-25 15:11 | NUR ---
P.T Note: P.T evaluation completed and treatment initiated. Please refer to P.T evaluation for current functional status. Pt received in supine position with caregiver providing pertinent information re: pt's PLOF. Pt is alert, non verbal , not able to follow verbal commands however responded well and completed mobility tasks/assessment with constant gentle manual/cues or coaxing with assistance from the CG. Pt is generally weak and deconditioned and currently requires MAX x 2 for bed mobilities and transfer activities and was able to ambulate 25 ft with hand in hand/mod a x 1. Pt will benefit from skilled P.T services to improve strength, endurance and balance to decrease ADL/functional mobility dependence and to facilitate return to PLOF during stay. Recommend Home P.T for continued P.T intervention VS SNF since patient has 24 hr CG. Thank you for this referral.
--- NOTE | 2019-02-25 15:35 | NUR ---
CASE MANAGEMENT:REVIEW 83 YR OLD FEMALE FROM HOME TO ER CC: AMS. SAT 85% ON RA SI SEPSIS. UTI 102.0 152 30 113/58 85% ON RA WBC+17.3 IS: PLACED ON 4L/NC 1L NS BOLUS TYLENOL NM IV ZOSYN URINE CX CXR : TO TELEMETRY INTERQUAL CRITERIA MET
[2019-02-25 16:00] VITALS: BP 140/82
--- NOTE | 2019-02-25 17:18 | Geriatric Progress Note ---
Assessment/Plan Problems: (1) Acute kidney injury (2) Tachyarrhythmia (3) Advanced dementia (4) UTI (urinary tract infection) (5) Sepsis (6) B12 deficiency (7) Gait instability (8) Rheumatoid arthritis (9) Hypothyroidism (10) Hyperlipidemia (11) Seizure disorder (12) Osteoporosis (13) History of pulmonary embolism Assessment/Plan Sepsis with E coli bacteremia from UTI. Responding well to Ceftriaxone. Would consider narrowing spectrum to cefazolin, but since would like to have patient go home MATTHEW, qd administration is more manageable than q8. Campos to be d/c now to monitor for bladder emptying. Taper O2 as well. Should be able to go home without O2, since hypoxia due to hypoventilation, no pulmonary disease. Mg being supplemented. Discussed with in detail. Discussed with: hospital staff, other - private caregiver Subjective Interval Events Patient doing well. Non-verbal, looks slightly perplexed. Per staff and caregiver, eating well, no fever. Still on O2 4l/m. Campos in place. Per P.T. ambulated 25' with mod A. Labs with Mg 1.7, Blood C&S: growing same E coli. Subjective Patient non-verbal. Geriatric Geriatric Last 24 Hour Vital Signs Date Time Temp Pulse Resp B/P (MAP) Pulse Ox O2 Delivery O2 Flow Rate FiO2 02/25/19 13:00 79 02/25/19 12:00 97.2 80 18 138/78 (98) 98 02/25/19 09:00 Nasal Cannula 4.0 02/25/19 08:00 77 02/25/19 08:00 97.5 77 20 143/72 (95) 97 02/25/19 04:00 78 02/25/19 03:57 98.1 81 20 142/84 (103) 97 02/25/19 00:00 82 02/25/19 00:00 98.4 84 20 159/88 (111) 97 02/24/19 21:00 Nasal Cannula 4.0 02/24/19 20:00 81 02/24/19 20:00 97.0 82 20 155/83 (107) 95 Intake and Output 02/24/19 02/25/19 19:00 07:00 Intake Total 480 ml Output Total 300 ml 1300 ml Balance 180 ml -1300 ml Intake Oral 480 ml Output Urine Total 300 ml 1300 ml Laboratory Tests Test 02/25/19 07:15 White Blood Count 8.0 K/UL (4.8-10.8) Red Blood Count 3.20 M/UL (4.20-5.40) L Hemoglobin 10.2 G/DL (12.0-16.0) L Hematocrit 31.9 % (37.0-47.0) L Mean Corpuscular Volume 100 FL (80-99) H Mean Corpuscular Hemoglobin 31.9 PG (27.0-31.0) H Mean Corpuscular Hemoglobin Concent 32.1 G/DL (32.0-36.0) Red Cell Distribution Width 14.2 % (11.6-14.8) Platelet Count 193 K/UL (150-450) Mean Platelet Volume 6.0 FL (6.5-10.1) L Neutrophils (%) (Auto) 68.1 % (45.0-75.0) Lymphocytes (%) (Auto) 18.4 % (20.0-45.0) L Monocytes (%) (Auto) 9.1 % (1.0-10.0) Eosinophils (%) (Auto) 3.5 % (0.0-3.0) H Basophils (%) (Auto) 0.9 % (0.0-2.0) Prothrombin Time 26.3 SEC (9.30-11.50) H Prothromb Time International Ratio 2.6 (0.9-1.1) H Sodium Level 143 MMOL/L (136-145) Potassium Level 4.0 MMOL/L (3.5-5.1) Chloride Level 110 MMOL/L (98-107) H Carbon Dioxide Level 25 MMOL/L (21-32) Anion Gap 8 mmol/L (5-15) Blood Urea Nitrogen 14 mg/dL (7-18) Creatinine 1.2 MG/DL (0.55-1.30) Estimat Glomerular Filtration Rate mL/min (>60) Glucose Level 116 MG/DL (74-106) H Calcium Level 9.3 MG/DL (8.5-10.1) Magnesium Level 1.7 MG/DL (1.8-2.4) L Current Medications Medications (Trade) Dose Ordered Sig/Tres Route PRN Reason Start Time Stop Time Status Last Admin Dose Admin Acetaminophen (Tylenol) 650 mg Q4H PRN ORAL Mild Pain/Temp > 100.0 02/23/19 20:45 03/25/19 20:44 02/23/19 21:09 Ceftriaxone Sodium 1 gm/ Dextrose 55 ml @ 110 mls/hr Q24H IVPB 02/22/19 17:00 03/01/19 16:59 02/24/19 17:09 Dextromethorphan/ Quinidine (Nuedexta Capsule) 1 cap Q12HR ORAL 02/22/19 21:00 03/24/19 20:59 02/25/19 08:11 Dextrose (Dextrose 50%) 25 ml Q30M PRN IV Hypoglycemia 02/22/19 15:30 03/24/19 15:29 Dextrose (Dextrose 50%) 50 ml Q30M PRN IV Hypoglycemia 02/22/19 15:30 03/24/19 15:29 Dextrose/ Electrolytes 1,000 ml @ 50 mls/hr Q20H IV 02/24/19 16:00 03/24/19 15:59 02/25/19 12:36 Escitalopram Oxalate (Lexapro) 20 mg DAILY ORAL 02/23/19 09:00 03/25/19 08:59 02/25/19 08:11 Folic Acid (Folate) 1 mg DAILY ORAL 02/23/19 09:00 03/25/19 08:59 02/25/19 08:11 Levetiracetam (Keppra) 500 mg EVERY 12 HOURS ORAL 02/22/19 21:00 03/24/19 20:59 02/25/19 08:11 Levothyroxine Sodium (Synthroid) 50 mcg ACBREAKFAST ORAL 02/23/19 06:30 03/25/19 06:29 02/25/19 06:08 Magnesium Sulfate 100 ml @ 100 mls/hr Q1H IVPB 02/25/19 15:30 02/25/19 17:29 02/25/19 16:26 Vitamin D (Vitamin D) 1,000 intlu DAILY ORAL 02/23/19 09:00 03/25/19 08:59 02/25/19 08:11 Height (Feet): 5 Height (Inches): 4.00 Weight (Pounds): 140 General Appearance: no apparent distress, alert, non-toxic Head: normocephalic, atraumatic Eyes: bilateral anicteric Neck: full range of motion, no mass Respiratory: lungs clear Cardiovascular: regular rate, rhythm Gastrointestinal: normal bowel sounds, non tender, soft, no mass, no organomegaly, non-distended Musculoskeletal: no calf tenderness Edema: no edema noted Generalized Neurologic: no new focality Kolby Salazar MD Feb 25, 2019 17:18
[2019-02-25] MEDS: cefTRIAXone 1 GM in D5W 55 ML IVPB SCH (17:28)
--- NOTE | 2019-02-25 19:20 | NUR ---
HAND-OFF: Report given to GREGORIA Lee. The patient is resting on the bed without acute distress or shortness of breath. The patient's bed in the lowest position, call light in reach, and fall and aspiration precaution reinforced. IV site is intact and patent. Endorsed plan of care.
[2019-02-25 20:00] VITALS: BP 142/71
[2019-02-26] VITALS: BP 145/76
[2019-02-26 04:00] VITALS: BP 133/61
--- NOTE | 2019-02-26 07:00 | NUR ---
HAND-OFF: Report given to Ayleen KINNEY. Endorsed plan of care.
--- NOTE | 2019-02-26 07:42 | NUR ---
NURSE NOTES: Received report from GREGORIA Lee. The patient is resting on the bed without acute distress or shortness of breath. The patient's bed in the lowest position, call light in reach, and fall and aspiration precaution reinforced. IV site on R FA 20G intact and patent. Will continue plan of care.
[2019-02-26 08:00] VITALS: BP 153/67
[2019-02-26] MEDS: D5 1/2NS w/KCl 20mEq 1,000 ML IV SCH (08:20)
[2019-02-26] MEDS: Vitamin D 1000 IU Tab ORAL SCH (08:22)
[2019-02-26] MEDS: Nuedexta Capsule 20/10mg ORAL SCH (08:22)
--- NOTE | 2019-02-26 10:26 | NUR ---
NURSE NOTES: Per night nurse, the patient voided well after Campos removal. Per Ankita, the private caregiver, the patient voided this morning with adequate amount. Based on the bladder scan this morning, the patient had residual amount of 101mL. Wean off oxygen into 1L NC now without acute distress or shortness of breath. No fever or dropping in oxygen saturation noted. Will continue plan of care.
--- NOTE | 2019-02-26 11:57 | NUR ---
DISCHARGE PLANNING FAXED ANTIBIOTIC ORDER TO [facility] T: [phone] [employer] MACHINE OPERATOR IS AIDAN THEY HAVE CONFIRMED THEY CAN SUPPLY IV ANTIBIOTICS UPON DISCHARGE PATIENT HAS BEEN ON SERVICE WITH [facility] CALLED AND LEFT [facility] REQUESTING A RETURN CALL TO SEE IF THEY CAN SERVICE PATIENT
[2019-02-26 12:00] VITALS: BP 115/62
--- NOTE | 2019-02-26 12:01 | NUR ---
RD ASSESSMENT & RECOMMENDATIONS SEE CARE ACTIVITY FOR COMPLETE ASSESSMENT DAILY ESTIMATED NEEDS: Needs based on Sepsis, 58kg adj 25-35 kcals/kg 0993-0650 total kcals 1-2 g protein/kg 58-116 g total protein 25-30 mL/kg 5361-2763 total fluid mLs NUTRITION DIAGNOSIS: Swallowing difficulty r/t dysphagia / advanced dementia as evidenced by pt is 1:1 feeder, on Honey thickened liquids. CURRENT DIET:Regular / HTL / Kosher PO DIET RECOMMENDATIONS: Maintain current diet ADDITIONAL RECOMMENDATIONS: - MACHINE STITCHER eval for appropriate diet texture - Monitor for continued good po intake - BG mildly elev (106-168); monitor need for hypoglycemics prn - Check lytes, replete as needed (low Mg 1.7) - Weekly weights
--- NOTE | 2019-02-26 14:02 | NUR ---
NURSE NOTES: Received a phone call back from [facility] and spoke with Heide, the nurse at home health. The the patient can receive the service at [facility] per GREGORIA Jaeger. Will continue plan of care. The patient is off from NC and saturation is 96% in room air. Will continue plan of care.
--- NOTE | 2019-02-26 14:11 | NUR ---
NURSE NOTES: Dr. Salazar at the bedside for the patient assessment. Dr. Salazar ordered to give Ceftriaxone now so the patient can be discharged as soon as possible. Will continue plan of care until discharge.
--- NOTE | 2019-02-26 14:20 | Geriatric Progress Note ---
Assessment/Plan Problems: (1) Acute kidney injury (2) Tachyarrhythmia (3) Advanced dementia (4) UTI (urinary tract infection) (5) Sepsis (6) B12 deficiency (7) Gait instability (8) Rheumatoid arthritis (9) Hypothyroidism (10) Hyperlipidemia (11) Seizure disorder (12) Osteoporosis (13) History of pulmonary embolism Assessment/Plan Stable now for d/c to home with [facility], 6 additional days of ceftriaxone starting tomorrow. Discussed with: hospital staff, other - private caregiver Subjective Interval Events Patient alert, no distress. Staff, caregiver report patient doing well. Ate. Ambuate 25' with P.T. Tapered off O2, Campos d/c with adequate emptying. Subjective Patient non-verbal. Geriatric Geriatric Last 24 Hour Vital Signs Date Time Temp Pulse Resp B/P (MAP) Pulse Ox O2 Delivery O2 Flow Rate FiO2 02/26/19 12:00 97.1 84 18 115/62 (79) 97 02/26/19 12:00 81 02/26/19 09:00 Nasal Cannula 1.0 02/26/19 08:00 97.3 84 18 153/67 (95) 95 02/26/19 08:00 73 02/26/19 04:00 80 02/26/19 04:00 98.0 77 18 133/61 (85) 98 02/26/19 00:00 78 02/26/19 00:00 97.0 79 18 145/76 (99) 99 02/25/19 21:00 Nasal Cannula 4.0 02/25/19 20:00 98.3 79 18 142/71 (94) 96 02/25/19 20:00 78 02/25/19 16:00 97.2 79 18 140/82 (101) 99 02/25/19 16:00 79 Intake and Output 02/25/19 02/26/19 19:00 07:00 Intake Total 480 ml Output Total 800 ml Balance -320 ml Intake Oral 480 ml Output Urine Total 800 ml # Voids 2 # Bowel Movements 1 Current Medications Medications (Trade) Dose Ordered Sig/Tres Route PRN Reason Start Time Stop Time Status Last Admin Dose Admin Acetaminophen (Tylenol) 650 mg Q4H PRN ORAL Mild Pain/Temp > 100.0 02/23/19 20:45 03/25/19 20:44 02/23/19 21:09 Ceftriaxone Sodium 1 gm/ Dextrose 55 ml @ 110 mls/hr ONCE ONCE IVPB 02/26/19 14:30 02/26/19 14:59 Ceftriaxone Sodium 1 gm/ Dextrose 55 ml @ 110 mls/hr Q24H IVPB 02/22/19 17:00 03/01/19 16:59 02/25/19 17:28 Dextromethorphan/ Quinidine (Nuedexta Capsule) 1 cap Q12HR ORAL 02/22/19 21:00 03/24/19 20:59 02/26/19 08:22 Dextrose (Dextrose 50%) 25 ml Q30M PRN IV Hypoglycemia 02/22/19 15:30 03/24/19 15:29 Dextrose (Dextrose 50%) 50 ml Q30M PRN IV Hypoglycemia 02/22/19 15:30 03/24/19 15:29 Dextrose/ Electrolytes 1,000 ml @ 50 mls/hr Q20H IV 02/24/19 16:00 03/24/19 15:59 02/26/19 08:20 Escitalopram Oxalate (Lexapro) 20 mg DAILY ORAL 02/23/19 09:00 03/25/19 08:59 02/26/19 08:22 Folic Acid (Folate) 1 mg DAILY ORAL 02/23/19 09:00 03/25/19 08:59 02/26/19 08:20 Levetiracetam (Keppra) 500 mg EVERY 12 HOURS ORAL 02/22/19 21:00 03/24/19 20:59 02/26/19 08:20 Levothyroxine Sodium (Synthroid) 50 mcg ACBREAKFAST ORAL 02/23/19 06:30 03/25/19 06:29 02/26/19 06:06 Vitamin D (Vitamin D) 1,000 intlu DAILY ORAL 02/23/19 09:00 03/25/19 08:59 02/26/19 08:22 Height (Feet): 5 Height (Inches): 4.00 Weight (Pounds): 140 General Appearance: alert, non-toxic Head: normocephalic, atraumatic Eyes: bilateral anicteric Neck: full range of motion, no mass Respiratory: lungs clear, decreased breath sounds Cardiovascular: regular rate, rhythm Gastrointestinal: normal bowel sounds, non tender, soft, no mass, no organomegaly, distended - mild soft Musculoskeletal: no calf tenderness Edema: no edema noted Generalized Neurologic: no new focality Kolby Salazar MD Feb 26, 2019 14:20
[2019-02-26] MEDS ORDERED: cefTRIAXone 1 GM in D5W 55 ML IVPB ONE (14:30)
--- NOTE | 2019-02-26 14:41 | Discharge Summary ---
Discharge Summary Discharge Summary _ Date of Admission: February 22, 2019. Date of Discharge: February,. Discharge Diagnoses: 1. Sepsis with E coli bacteremia due to urinary tract infection, with history of prior urinary tract infections with associated encephalopathy and systemic symptoms. 2. Transient tachyarrythmia due to sepsis. 2. Advanced cognitive dysfunction primarily due to Alzheimer disease. Consider contributing components of small vessel cerebrovascular disease and B12 deficiency. 3. Multifactorial gait disorder. 4. History of fall with rib fractures. 5. History of rheumatoid arthritis, on Simponi. 6. Hypothyroidism. 7. Hyperlipidemia. 8. Seizure disorder. 9. Osteopenia. 10. History of migraines. 11. History of depression with anxiety and paranoia. 12. 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 13. 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 14. Mitral valve prolapse. 15. Status post cataract surgery, left eye. 16. Status post appendectomy. 17. Osteoporosis, treated with Denosumab. Medications: 1. Vitamin D3 3000 units qod. 2. Cyanocobalamin 1000 mcg IM monthly. 3. Prolia every 6 months, last administered approximately 3 months ago 4. Nuedexta twice daily. 5. Lexapro 20 mg daily. 6. Folate 1 mg daily. 7. Simponi monthly per Dr. Nava. 8. Levothyroxine 50 mcg 6 times a week. 9. Lovastatin 40 mg nightly. 10. Belsomra 10 mg nightly. 11. Warfarin 3 mg daily except for Wednesdays, 4 mg on Wednesdays. 12. Keppra 500 mg twice daily. 13. Cranberry pills. 14. Rocephin 1 gm IV daily through 03/04/19. Allergies: Codeine, Sulfa drugs including Trimethoprim/sulfa. History of Present Illness: Ms. Snider is an 83-year-old woman with multiple chronic medical illnesses requiring full-time care at home. She had evidence of a urinary tract infection which was pending culture results when she developed lethargy, relative unresponsiveness, and diminishing oral intake. She was brought to the emergency department where evaluation confirmed probable sepsis with an elevated lactate. The patient was admitted for further evaluation and treatment. Details of the history and physical examination are per the dictation of February 22, 2019. Hospital Course: Initial laboratory work revealed significant leukocytosis, acute kidney injury, and significant pyuria. Patient was placed on intravenous hydration and treated empirically with ceftriaxone in the emergency department. Urine culture eventually grew out an E. coli, resistant to ampicillin and trimethoprim sulfa. Subsequently blood cultures x2 drawn in the day of admission grew out the same bacteria. Because of recurrent fever and a subsequent blood culture was drawn the next day, but the culture was negative over the course of several days the patient's leukocytosis resolved, the acute kidney injury resolved, and the patient's mental status reverted to her normal baseline. There was a brief period of tachyarrhythmia, which appeared to be primarily sinus tachycardia, but with a question of some possible brief episodes of atrial fibrillation with rapid ventricular response. However, after the sepsis was adequately controlled, these episodes did not recur, so that additional evaluation and treatment were not thought to be warranted. Patient's initial fever and initial elevated lactate also resolved with antibiotic therapy. As the patient stabilized her mental status and function returned to her baseline. She was able to ambulate 25 feet with assistance with physical therapy. Her Campos catheter which been placed in the emergency department was removed and she was able to urinate adequately. Her oxygen supplementation initiated in the emergency room was also discontinued with adequate room air saturations. Because of the patient's advanced cognitive dysfunction, and her familiarity with her own private caregivers in her home situation, her feels that she would be best served by completion of her antibiotic therapy at home, rather than an extended stay in the hospital or alternatively a transfer to a half-way facility. Although the patient's antibiotic coverage spectrum could be optimized by changing from ceftriaxone to cefazolin, to facilitate at home administration the once a day ceftriaxone will be continued for a total of 10 days. Patient's other medications will be continued as before. During the entire course the patient's private caregiver was at bedside caring for the patient. Her entire course was reviewed on multiple occasions with the patient's who concurred with the therapeutic approach. At this time the patient will be discharged home on her usual medications with the continuation of ceftriaxone. She will be followed up in the office and at home with home health care. Kolby Salazar MD Feb 26, 2019 14:41
--- NOTE | 2019-02-26 14:47 | NUR ---
DISCHARGE PLANNING PLAN IS FOR PATIENT TO DISCHARGE HOME TODAY [facility].... T: [phone]...WILL SUPPLY THE IV ANTIBIOTICS...LENS MOLD SETTER IS AIDAN PATIENT IS ON SERVICE WITH "[facility]" BUT THEY ARE NOT A HOME HEALTH THEY ONLY PROVIDE CARE GIVERS [facility] HAS ARRANGED HOME HEALTH WITH "[facility]" T: [phone] AND THEY WILL PROVIDE THE NURSING SERVICE FOR THE IV ANTIBIOTICS ONCE DISCHARGE ORDER IS WRITTEN [facility] NEED[facility] TO BE NOTIFIED OF TIME OF DISCHARGE TODAY'S DOSE OF ROCEPHIN WAS GIVEN @ 1430
[2019-02-26] MEDS ORDERED: CEFTRIAXON1 GM/50 ML IV (14:51)
[2019-02-26] MEDS ORDERED: NUEDEXTA 20-101 EAC1 PO (14:51)
[2019-02-26] MEDS ORDERED: CRANBERRY400 M1 PO (14:51)
--- NOTE | 2019-02-26 15:50 | NUR ---
DISCHARGE PLAN PATIENT IS DISCHARGING TO HOME WITH IV ANTIBIOTICS PROVIDED BY [facility] T: [phone] ENVIRONMENTAL HEALTH SAFETY MANAGER IS AIDAN...SPOKE WITH AIDAN AND ASKED HIM TO CANCEL "[facility]" HOME HEALTH COMPANY WILL BE "[facility]" AND THEY WILL PROVIDE THE NURSING [facility] T: [phone] F: [phone] ENVIRONMENTAL HEALTH SAFETY MANAGER IS ARCHANA ANTIBIOTICS WILL BE DELIVERED TO THE HOME AFTER [facility] COORDINATES WITH PATIENT AND HER [facility] WILL SEND NURSE TO HOME TOMORROW
[2019-02-26 15:55] VITALS: BP 113/69
--- NOTE | 2019-02-26 15:55 | NUR ---
NURSE NOTES: The patient got safely discharged back to home with home health for antibiotic therapy per Dr. Salazar's order. The patient got discharged with Mr. Phelps, the spouse and Sada, the primary caregiver's assistance. Right before discharge, the patient had bowel movement and urination. The patient's saturation was 94-95% in room air without NC. The patient's telebox and nameband removed but kept IV on R FA 20G per Dr. Salazar's order for antibiotics therapy. The patient's physical symptom and vital signs were stable. The patient does not have acute distress or shortness of breath upon discharge. Discharge instruction given to Mr. Phelps and signed by Dr. Phelps. Belongings checked with Mr. Phelps and signed by Mr. Phelps. The patient got safely discharged back to home with home health.
== END 2019-02-26 16:00 | disposition home health service (06) | DRG 871 ==
LOC: EMR 11:27 → EDBEDREQ 12:03 → 2E 12:17 → EDBEDREQ 13:20 → 2E 16:17
DX: A41.9 Sepsis, unspecified organism (principal); G93.41 Metabolic encephalopathy; N17.9 Acute kidney failure, unspecified; N39.0 Urinary tract infection, site not specified; Z88.6 Allergy status to analgesic agent; Z88.2 Allergy status to sulfonamides; B96.20 Unspecified Escherichia coli [E. coli] as the cause of diseases classified elsewhere; R09.02 Hypoxemia; G30.9 Alzheimer's disease, unspecified; F02.80 Dementia in other diseases classified elsewhere, unspecified severity, without behavioral disturbance, psychotic disturbance, mood disturbance, and anxiety; R26.9 Unspecified abnormalities of gait and mobility; Z91.81 History of falling; M06.9 Rheumatoid arthritis, unspecified; F41.8 Other specified anxiety disorders; F22 Delusional disorders; E03.9 Hypothyroidism, unspecified; G40.909 Epilepsy, unspecified, not intractable, without status epilepticus; R45.1 Restlessness and agitation; Z86.711 Personal history of pulmonary embolism; Z86.718 Personal history of other venous thrombosis and embolism; I34.1 Nonrheumatic mitral (valve) prolapse; M81.0 Age-related osteoporosis without current pathological fracture; Z79.01 Long term (current) use of anticoagulants; E53.8 Deficiency of other specified B group vitamins
CPT/HCPCS: 36415; 71045; 80048; 80053; 80299; 81003; 82550; 82553; 83605; 83690; 83735; 83880; 84484; 85007; 85025; 85610; 85730; 87040; 87086; 87181; 93005; 96361; 96365; 99291

== ENCOUNTER 2019-05-30 13:47 | Inpatient (IN) | payer MEDICARE, OTHER ==
[~2019-05-30] VITALS: Ht 162.6 cm; Wt 65.3 kg
[~2019-05-30 13:47] MED LIST changes: +BELSOMRA10 MG PO; +CEFTRIAXON1 GM/50 ML IV; +CRANBERRY400 M1 PO; +CYANOCOBAL1000 MCG/2 IJ; +ESCITALOPRAM OX20 MG ORAL; +LOVASTATIN40 MG ORAL; +NUEDEXTA 20-101 EAC1 PO; +SEROQUEL25 MG ORAL; +WARFARIN SODIUM3 MG ORAL
--- NOTE | 2019-05-30 14:11 | NUR ---
ED Nurse Note: PT CALLED NOT IN WAITING ROOM WILL TRY AGAIN
[2019-05-30] MEDS ORDERED: cefTRIAXone 1 GM in NS 55 ML IVPB ONE (15:00)
--- NOTE | 2019-05-30 15:24 | Emergency Room Report ---
History of Present Illness General Chief Complaint: Fever Source: Family Member Present Illness HPI Patient was seen at Dr. gayle office today was found to have a fever And sent to the emergency room Patient herself has significant dementia cannot provide appropriate history the patient's reports the patient has been more lethargic than usual There was no reports of vomiting Denies any diarrhea there was no other reports of rash patient was here several months ago with sepsis and UTI Allergies: Coded Allergies: CODEINE (Verified Allergy, Unknown, 11/03/17) SULFA (SULFONAMIDE ANTIBIOTICS) (Verified Allergy, Unknown, 11/03/17) SULFAMETHOXAZOLE (Verified Allergy, Unknown, 11/03/17) TRIMETHOPRIM (Verified Allergy, Unknown, 11/03/17) Patient History Limited by: medical condition Past Medical History: see triage record Reviewed Nursing Documentation: PMH: Agreed; PSxH: Agreed Nursing Documentation-PMH Hx Cardiac Problems: No - DVT on LE Hx Hypertension: No - Rheumatoid arthritis Hx Pacemaker: No Hx Asthma: No Hx COPD: No Hx Diabetes: No Hx Cancer: No Hx Gastrointestinal Problems: No Hx Dialysis: No Hx Neurological Problems: Yes - Alzheimer's Hx Cerebrovascular Accident: No Hx Alzheimer's Disease: Yes Hx Seizures: Yes - years ago Review of Systems All Other Systems: limited - Other than the ones mentioned in the history of present illness all others are reviewed however they do stay limited due to the patient's mental status Physical Exam Vital Signs Date Time Temp Pulse Resp B/P (MAP) Pulse Ox O2 Delivery O2 Flow Rate FiO2 05/30/19 14:45 98.1 129 27 144/87 (106) 95 Room Air Sp02 EP Interpretation: reviewed, normal General Appearance: other - Appears weak Head: normocephalic, atraumatic Eyes: bilateral eye PERRL ENT: dry mucus membranes Neck: supple Respiratory: lungs clear, no respiratory distress, no retraction Cardiovascular #1: tachycardia Gastrointestinal: non tender, soft Musculoskeletal: other Neurologic: other - Opens eyes localizes towards physical stimuli Skin: other - poor skin turgor Lymphatic: no adenopathy Procedures Critical Care Time Critical Care Time 50 minutes for critical findings concerning presentation concerning for cardiopulmonary arrest and possible not including any procedural time Medical Decision Making Diagnostic Impression: Primary Impression: Sepsis Additional Impression: UTI (urinary tract infection) ER Course Patient is a fairly complex patient with multiple differential to consideration including but not limited to cardiac cardiopulmonary and vascular emergencies Other process such as UTI, sepsis considered patient has had previous UTI in the past Patient's urine sample does show significant bacteria IV hydration and antibiotics are initiated Patient's primary physician in the emergency room as well and talking to family and patient admitted for further care Labs Test 05/30/19 16:00 05/30/19 18:00 White Blood Count 10.0 K/UL (4.8-10.8) Red Blood Count 3.92 M/UL (4.20-5.40) Hemoglobin 12.6 G/DL (12.0-16.0) Hematocrit 36.3 % (37.0-47.0) Mean Corpuscular Volume 93 FL (80-99) Mean Corpuscular Hemoglobin 32.2 PG (27.0-31.0) Mean Corpuscular Hemoglobin Concent 34.7 G/DL (32.0-36.0) Red Cell Distribution Width 12.0 % (11.6-14.8) Platelet Count 216 K/UL (150-450) Mean Platelet Volume 5.7 FL (6.5-10.1) Neutrophils (%) (Auto) 72.6 % (45.0-75.0) Lymphocytes (%) (Auto) 17.8 % (20.0-45.0) Monocytes (%) (Auto) 8.4 % (1.0-10.0) Eosinophils (%) (Auto) 0.5 % (0.0-3.0) Basophils (%) (Auto) 0.7 % (0.0-2.0) Sodium Level 142 MMOL/L (136-145) Potassium Level 4.0 MMOL/L (3.5-5.1) Chloride Level 108 MMOL/L (98-107) Carbon Dioxide Level 26 MMOL/L (21-32) Anion Gap 8 mmol/L (5-15) Blood Urea Nitrogen 23 mg/dL (7-18) Creatinine 1.2 MG/DL (0.55-1.30) Estimat Glomerular Filtration Rate mL/min (>60) Glucose Level 103 MG/DL (74-106) Lactic Acid Level 0.70 mmol/L (0.4-2.0) Calcium Level 9.0 MG/DL (8.5-10.1) Total Bilirubin 0.6 MG/DL (0.2-1.0) Aspartate Amino Transf (AST/SGOT) 19 U/L (15-37) Alanine Aminotransferase (ALT/SGPT) 21 U/L (12-78) Alkaline Phosphatase 91 U/L (46-116) Total Creatine Kinase 66 U/L (26-308) Creatine Kinase MB 0.9 NG/ML (0.0-3.6) Creatine Kinase MB Relative Index 1.3 Troponin I 0.000 ng/mL (0.000-0.056) Pro-B-Type Natriuretic Peptide 1167 pg/mL (0-125) Total Protein 7.7 G/DL (6.4-8.2) Albumin 3.1 G/DL (3.4-5.0) Globulin 4.6 g/dL Albumin/Globulin Ratio 0.7 (1.0-2.7) Lipase 157 U/L (73-393) Urine Color Pale yellow Urine Appearance Cloudy Urine pH 6 (4.5-8.0) Urine Specific [place] 1.015 (1.005-1.035) Urine Protein 2+ (NEGATIVE) Urine Glucose (UA) Negative (NEGATIVE) Urine Ketones Negative (NEGATIVE) Urine Blood 3+ (NEGATIVE) Urine Nitrite Negative (NEGATIVE) Urine Bilirubin Negative (NEGATIVE) Urine Urobilinogen Normal MG/DL (0.0-1.0) Urine Leukocyte Esterase 3+ (NEGATIVE) Urine RBC 0-2 /HPF (0 - 2) Urine WBC Tntc /HPF (0 - 2) Urine Squamous Epithelial Cells Many /LPF (NONE/OCC) Urine Bacteria Moderate /HPF (NONE) Labs Test 05/30/19 16:00 05/30/19 18:00 White Blood Count 10.0 K/UL (4.8-10.8) Red Blood Count 3.92 M/UL (4.20-5.40) Hemoglobin 12.6 G/DL (12.0-16.0) Hematocrit 36.3 % (37.0-47.0) Mean Corpuscular Volume 93 FL (80-99) Mean Corpuscular Hemoglobin 32.2 PG (27.0-31.0) Mean Corpuscular Hemoglobin Concent 34.7 G/DL (32.0-36.0) Red Cell Distribution Width 12.0 % (11.6-14.8) Platelet Count 216 K/UL (150-450) Mean Platelet Volume 5.7 FL (6.5-10.1) Neutrophils (%) (Auto) 72.6 % (45.0-75.0) Lymphocytes (%) (Auto) 17.8 % (20.0-45.0) Monocytes (%) (Auto) 8.4 % (1.0-10.0) Eosinophils (%) (Auto) 0.5 % (0.0-3.0) Basophils (%) (Auto) 0.7 % (0.0-2.0) Sodium Level 142 MMOL/L (136-145) Potassium Level 4.0 MMOL/L (3.5-5.1) Chloride Level 108 MMOL/L (98-107) Carbon Dioxide Level 26 MMOL/L (21-32) Anion Gap 8 mmol/L (5-15) Blood Urea Nitrogen 23 mg/dL (7-18) Creatinine 1.2 MG/DL (0.55-1.30) Estimat Glomerular Filtration Rate mL/min (>60) Glucose Level 103 MG/DL (74-106) Lactic Acid Level 0.70 mmol/L (0.4-2.0) Calcium Level 9.0 MG/DL (8.5-10.1) Total Bilirubin 0.6 MG/DL (0.2-1.0) Aspartate Amino Transf (AST/SGOT) 19 U/L (15-37) Alanine Aminotransferase (ALT/SGPT) 21 U/L (12-78) Alkaline Phosphatase 91 U/L (46-116) Total Creatine Kinase 66 U/L (26-308) Creatine Kinase MB 0.9 NG/ML (0.0-3.6) Creatine Kinase MB Relative Index 1.3 Troponin I 0.000 ng/mL (0.000-0.056) Pro-B-Type Natriuretic Peptide 1167 pg/mL (0-125) Total Protein 7.7 G/DL (6.4-8.2) Albumin 3.1 G/DL (3.4-5.0) Globulin 4.6 g/dL Albumin/Globulin Ratio 0.7 (1.0-2.7) Lipase 157 U/L (73-393) Urine Color Pale yellow Urine Appearance Cloudy Urine pH 6 (4.5-8.0) Urine Specific [place] 1.015 (1.005-1.035) Urine Protein 2+ (NEGATIVE) Urine Glucose (UA) Negative (NEGATIVE) Urine Ketones Negative (NEGATIVE) Urine Blood 3+ (NEGATIVE) Urine Nitrite Negative (NEGATIVE) Urine Bilirubin Negative (NEGATIVE) Urine Urobilinogen Normal MG/DL (0.0-1.0) Urine Leukocyte Esterase 3+ (NEGATIVE) Urine RBC 0-2 /HPF (0 - 2) Urine WBC Tntc /HPF (0 - 2) Urine Squamous Epithelial Cells Many /LPF (NONE/OCC) Urine Bacteria Moderate /HPF (NONE) Rhythm Strip Diag. Results EP Interpretation: yes Rate: 110 Rhythm: no PVC's, no ectopy, other - Sinus tach Chest X-Ray Diagnostic Results Chest X-Ray Diagnostic Results : Chest X-Ray Ordered: Yes # of Views/Limited/Complete: 1 View Indication: Chest Pain EP Interpretation: Yes Interpretation: no consolidation, no pneumothorax, other - Mild bilateral atelectasis Impression: No acute disease Electronically Signed by: Karlos Lucas DO Last Vital Signs Date Time Temp Pulse Resp B/P (MAP) Pulse Ox O2 Delivery O2 Flow Rate FiO2 05/30/19 14:45 98.1 129 27 144/87 (106) 95 Room Air Status: improved Disposition: ADMITTED INPATIENT Condition: Serious Scripts Warfarin Sod* (COUMADIN*) 3 Mg Tablet 3 MG ORAL DAILY@17 for 30 Days, #30 TAB Prov: Kolby Salazar MD 06/02/19 Atenolol* (TENORMIN*) 25 Mg Tablet 12.5 MG ORAL DAILY for 30 Days, #30 TAB Prov: Kolby Salazar MD 06/02/19 Amoxicillin* (AMOXIL*) 250 Mg Capsule 500 MG ORAL EVERY 8 HOURS for 4 Days, #12 CAP Prov: Kolby Salazar MD 06/02/19 Referrals: Kolby Salazar MD (PCP) Karlos Lucas DO May 30, 2019 15:24
[2019-05-30 16:37] LABS: BASOPHILS % (AUTO) 0.7 % (0.0-2.0); EOSINOPHILS % (AUTO) 0.5 % (0.0-3.0); HEMATOCRIT 36.3 % (37.0-47.0); HEMOGLOBIN 12.6 G/DL (12.0-16.0); LYMPHOCYTES % (AUTO) 17.8 % (20.0-45.0); MEAN CORPUSCULAR VOLUME 93 FL (80-99); MONOCYTES % (AUTO) 8.4 % (1.0-10.0); NEUTROPHILS % (AUTO) 72.6 % (45.0-75.0); PLATELET COUNT 216 K/UL (150-450); RED BLOOD COUNT 3.92 M/UL (4.20-5.40)
[2019-05-30 16:51] LABS: ANION GAP 8 mmol/L (5-15); BLOOD UREA NITROGEN 23 mg/dL (7-18); CARBON DIOXIDE 26 MMOL/L (21-32); CHLORIDE 108 MMOL/L (98-107); CREATININE 1.2 MG/DL (0.55-1.30); SODIUM 142 MMOL/L (136-145)
[2019-05-30 17:05] LABS: ALANINE AMINOTRANSFERASE 21 U/L (12-78); ALBUMIN 3.1 G/DL (3.4-5.0); ALBUMIN/GLOBULIN RATIO 0.7 (1.0-2.7); ALKALINE PHOSPHATASE 91 U/L (46-116); ASPARTATE AMINO TRANSFERASE 19 U/L (15-37); BILIRUBIN,TOTAL 0.6 MG/DL (0.2-1.0); CKMB 0.9 NG/ML (0.0-3.6); CREATINE KINASE 66 U/L (26-308)
[2019-05-30 18:52] LABS: APPEARANCE,URINE CLOUDY; BILIRUBIN, URINE NEGATIVE (NEGATIVE); COLOR,URINE PALE YELLOW; GLUCOSE, URINE (UA) NEGATIVE (NEGATIVE); KETONES,URINE NEGATIVE (NEGATIVE); LEUKOCYTE ESTERASE ,URINE 3+ (NEGATIVE); NITRITE,URINE NEGATIVE (NEGATIVE); PH,URINE 6 (4.5-8.0); PROTEIN,URINE 2+ (NEGATIVE); UROBILINOGEN,URINE NORMAL MG/DL (0.0-1.0)
--- NOTE | 2019-05-30 18:56 | NUR ---
NURSE NOTES: Pt. came to floor from ER. bus driver/monitor applied. Gown changed. Allergy band applied. Belongings checked with caregiver signed and filed. IV patent. Bed on lowest position, side rails padded, alarm on, brakes on. Call light within easy reach. Family at bedside.
--- NOTE | 2019-05-30 19:19 | History & Physical ---
History and Physical History & Physicial Date of Admission: May 30, 2019. Patient Identification: Ms. Snider is an 83-year-old woman with multiple chronic medical problems who was brought to the office today by her and caregiver with evidence of lethargy, decreased responsiveness, pale sclera and conjunctive and a history of a fever 202 the previous evening. On evaluation in the office the patient appeared to be ill and mildly encephalopathic compared to her baseline. She was sent to the emergency department at [facility] for further evaluation. In the emergency department she was noted to be tachycardic up to 130, and the patient is admitted for further evaluation and treatment to the telemetry unit. History of Present Illness: Ms. Snider is chronically debilitated with a history of advanced dementia, and active rheumatoid arthritis. She was hospitalized in February at [facility] with urosepsis involving E. coli bacteremia. With treatment involving intravenous hydration and intravenous ceftriaxone the patient improved rapidly, and was discharged home with home health follow-up. Subsequently she was seen in the office on several occasions and had returned to her usual baseline with a limited verbal response but evidence of nonverbal responsiveness and smiling during the interactions. According to the patient's and her caregiver, last evening patient went to bed in her normal state of health then awoke with a repetitive groaning sound with respirations. This improved somewhat when the patient sat up but continued. She apparently was found to have a temperature of up to 102. This morning the patient was afebrile at home. She remained lethargic and was brought to the office. Examination in the office revealed unremarkable vital signs, but the patient did appear to be less alert and interactive than her baseline. Initial examination was not definitive in terms of the source for the fever or for her overall clinical change. After discussion with the patient's who is agreed that the patient should come to the emergency department for further evaluation. In the emergency department, patient was found to have a heart rate of 129. The initial impression was possible sepsis and the patient was given intravenous fluid bolus as well as a dose of ceftriaxone. Laboratory studies revealed no leukocytosis, relatively normal chemistries with a normal MB and troponin, a mildly elevated pro BNP. Further studies are pending, including urine studies which are delayed because the patient's unwillingness to cooperate with catheterization. The initial electrocardiogram did not reveal any definite dysrhythmia other than the tachycardia. After a fluid bolus the heart rate has gone down into the 80s. Chest x-ray is noted to be showing some blunting of the angles especially on the left side, but no other definite infiltrates or changes. Because of the fever and changes in her heart rate patient is admitted for further evaluation and treatment to the telemetry unit. Past Medical History: 1. Recent sepsis with E coli bacteremia due to urinary tract infection, with history of prior urinary tract infections with associated encephalopathy and systemic symptoms. 2. Transient tachyarrythmia due to sepsis in the past, including probable episode of rapid atrial fibrillation. 3. Advanced cognitive dysfunction primarily due to Alzheimer disease. Consider contributing components of small vessel cerebrovascular disease and B12 deficiency. 4. Multifactorial gait disorder. 5. History of fall with rib fractures. 6. History of rheumatoid arthritis, on Simponi. 7. Hypothyroidism. 8. Hyperlipidemia. 9. Seizure disorder. 10. Osteopenia. 11. History of migraines. 12. History of depression with anxiety and paranoia. 13. 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 14. 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 15. Mitral valve prolapse. 16. Status post cataract surgery, left eye. 17. Status post appendectomy. 18. Osteoporosis, treated with Denosumab. Medications: 1. Vitamin D3 3000 units qod. 2. Cyanocobalamin 1000 mcg IM monthly. 3. Prolia every 6 months, last administered approximately 3 months ago 4. Nuedexta twice daily. 5. Lexapro 20 mg daily. 6. Folate 1 mg daily. 7. Simponi monthly per Dr. Nava. 8. Levothyroxine 50 mcg 6 times a week. 9. Lovastatin 40 mg nightly. 10. Belsomra 10 mg nightly. 11. Warfarin 3 mg daily. 12. Keppra 500 mg twice daily. 13. Cranberry pills. Allergies: Codeine, Sulfa drugs including Trimethoprim/sulfa. Social History: The patient lives at home with her and there is a part-time caregiver who assists in care. She is functionally entirely dependent at this point requiring full-time care with all activities in daily living. Review of Systems: The patient is unable to respond to any questions. Does have advanced dementia. Her clinical changes are essentially as described above and reported by the and caregiver. The and caregiver do report that there have not been specific respiratory symptoms. Her oximetry is variable at home, but this fluctuation appears to be primarily due to peripheral perfusion and not hypoxia. She was eating well. She had not had a bowel movement for three days but that pattern is consistent with her baseline. Physical Examination: Temperature 149/79, heart rate 85, respiratory rate 19, temperature 96.1, saturation 96% RA. General: More alert after hydration and initial therapy. Head/neck: Normocephalic, atraumatic. Mucosa appears somewhat dry but patient does not open her mouth completely. Sclera and conjunctive are quite pale. Chest: Distant breath sounds with poor inspiratory effort, no gross rales or rhonchi. Cardiovascular: Regular rhythm. Abdomen: Normal bowel sounds, soft, nontender without masses or organomegaly. No definite tenderness or fullness in the suprapubic area. Extremities: No significant edema or tenderness. Neurologic: No definite new focality, no evidence of seizure activity, limited examination due to lack of cooperation. Initially less responsive and somewhat encephalopathic, now somewhat more alert but nonverbal Laboratory Data: WBC 10.0, hematocrit 36.3%, MCV 93, platelet count 216. Sodium 142, potassium 4.0, chloride 108, carbon dioxide 26, BUN 23, creatinine 1.2, glucose 103, lactate 0.70, calcium 9.0, total bilirubin 0.6, AST 19, ALT 21, alkaline phosphatase 91, total CK 66, MB 0.9, troponin 0 0.000, proBNP 1167, total protein 7.7, albumin 3.1, lipase 157. Urinalysis reveals 2+ protein, 3+ blood, 3+ leukocyte esterase, 0-2 RBCs, too numerous to count WBCs, with moderate bacteria. Chest x-ray: Bilateral effusions more prominent on the left side with no definite infiltrates. Electrocardiogram: Probable sinus tachycardia. Impression/Plan: 1. Despite the normal white count, the most likely explanation for Ms. Snider 's fever, grunting behavior, altered mental status with encephalopathy is recurrent sepsis. The most likely source is once again her urinary tract, with evidence of pyuria and bacteriuria in the urinalysis which is just been obtained. Patient has been cultured and started on ceftriaxone and this will be continued for the time being. 2. The patient's volume status is likely review euvolemic at this point after initial hydration. Depending on how the patient takes oral feedings determination will be made whether to push additional intravenous fluids. 3. Because of the tachycardia which appeared to be somewhat out of proportion to her initial presentation, cardiology consultation has been requested from Dr. Pate. Review of her prior admission suggests that she may have had a similar episode of tachycardia with at least one run of rapid atrial fibrillation. Lack of cardiac enzymes suggest that there was no significant cardiac injury associated with this tachycardia. 4. Patient will be placed on her usual medications as possible given the formulary considerations. She will be placed on a pured diet with thickened liquids initially. Additional interventions will be considered depending on the patient's initial response to therapy and further diagnostic studies. Kolby Salazar MD May 30, 2019 19:19
--- NOTE | 2019-05-30 19:30 | NUR ---
HAND-OFF: Report given to GREGORIA Glover. Plan of care endorsed.
[2019-05-30 20:00] VITALS: BP 155/86
--- NOTE | 2019-05-30 20:03 | NUR ---
NURSE NOTES: RECEIVED PATIENT RESTING IN BED, NO COMPLAINTS OF PAIN AT THIS TIME. CAREGIVER AT BEDSIDE. DR. DEE IS HER TO SEE PATIENT.
--- NOTE | 2019-05-30 20:05 | Cardiology Progress Note ---
Assessment/Plan Assessment/Plan [id number] Objective Last 24 Hour Vital Signs Date Time Temp Pulse Resp B/P (MAP) Pulse Ox O2 Delivery O2 Flow Rate FiO2 05/30/19 14:45 98.1 129 27 144/87 (106) 95 Room Air Laboratory Tests Test 05/30/19 16:00 05/30/19 18:00 White Blood Count 10.0 K/UL (4.8-10.8) Red Blood Count 3.92 M/UL (4.20-5.40) L Hemoglobin 12.6 G/DL (12.0-16.0) Hematocrit 36.3 % (37.0-47.0) L Mean Corpuscular Volume 93 FL (80-99) Mean Corpuscular Hemoglobin 32.2 PG (27.0-31.0) H Mean Corpuscular Hemoglobin Concent 34.7 G/DL (32.0-36.0) Red Cell Distribution Width 12.0 % (11.6-14.8) Platelet Count 216 K/UL (150-450) Mean Platelet Volume 5.7 FL (6.5-10.1) L Neutrophils (%) (Auto) 72.6 % (45.0-75.0) Lymphocytes (%) (Auto) 17.8 % (20.0-45.0) L Monocytes (%) (Auto) 8.4 % (1.0-10.0) Eosinophils (%) (Auto) 0.5 % (0.0-3.0) Basophils (%) (Auto) 0.7 % (0.0-2.0) Sodium Level 142 MMOL/L (136-145) Potassium Level 4.0 MMOL/L (3.5-5.1) Chloride Level 108 MMOL/L (98-107) H Carbon Dioxide Level 26 MMOL/L (21-32) Anion Gap 8 mmol/L (5-15) Blood Urea Nitrogen 23 mg/dL (7-18) H Creatinine 1.2 MG/DL (0.55-1.30) Estimat Glomerular Filtration Rate mL/min (>60) Glucose Level 103 MG/DL (74-106) Lactic Acid Level 0.70 mmol/L (0.4-2.0) Calcium Level 9.0 MG/DL (8.5-10.1) Total Bilirubin 0.6 MG/DL (0.2-1.0) Aspartate Amino Transf (AST/SGOT) 19 U/L (15-37) Alanine Aminotransferase (ALT/SGPT) 21 U/L (12-78) Alkaline Phosphatase 91 U/L (46-116) Total Creatine Kinase 66 U/L (26-308) Creatine Kinase MB 0.9 NG/ML (0.0-3.6) Creatine Kinase MB Relative Index 1.3 Troponin I 0.000 ng/mL (0.000-0.056) Pro-B-Type Natriuretic Peptide 1167 pg/mL (0-125) H Total Protein 7.7 G/DL (6.4-8.2) Albumin 3.1 G/DL (3.4-5.0) L Globulin 4.6 g/dL Albumin/Globulin Ratio 0.7 (1.0-2.7) L Lipase 157 U/L (73-393) Urine Color Pale yellow Urine Appearance Cloudy Urine pH 6 (4.5-8.0) Urine Specific [place] 1.015 (1.005-1.035) Urine Protein 2+ (NEGATIVE) H Urine Glucose (UA) Negative (NEGATIVE) Urine Ketones Negative (NEGATIVE) Urine Blood 3+ (NEGATIVE) H Urine Nitrite Negative (NEGATIVE) Urine Bilirubin Negative (NEGATIVE) Urine Urobilinogen Normal MG/DL (0.0-1.0) Urine Leukocyte Esterase 3+ (NEGATIVE) H Urine RBC 0-2 /HPF (0 - 2) Urine WBC Tntc /HPF (0 - 2) H Urine Squamous Epithelial Cells Many /LPF (NONE/OCC) H Urine Bacteria Moderate /HPF (NONE) H Chance Pate MD May 30, 2019 20:05
[2019-05-30] MEDS ORDERED: 1/2NS w/KCl 20mEq 1000ml 1,000 ML IV SCH (21:00)
[2019-05-30] MEDS: Donepezil 10mg tab ORAL SCH (21:02)
[2019-05-30] MEDS: Nuedexta Capsule 20/10mg ORAL SCH (21:52)
[2019-05-30] MEDS ORDERED: VITAMIN D250000 UNI1 ORAL (23:44)
[2019-05-30] MEDS ORDERED: LEXAPRO20 MG ORAL (23:44)
--- NOTE | 2019-05-30 23:45 | Consultation ---
DATE OF CONSULTATION: 05/30/2019 CARDIOLOGY CONSULTATION CONSULTING PHYSICIAN: Chance Pate M.D. REFERRING PHYSICIAN: Kolby Salzaar M.D. REASON FOR REFERRAL: Tachycardia. HISTORY OF PRESENT ILLNESS: The patient is an 83-year-old female, who is really not able to provide any meaningful history whatsoever. The patient's information is obtained from my discussion with Dr. Kolby Salazar as well as from the patient's gluing pressman at bedside. The patient has been in the usual state last night, went to bed normally, in the middle of the night it sounds like that she was uncomfortable. She is really not able to express herself or following any commands or do anything or communicate. Nevertheless, the sensation lasted throughout the morning and early this morning was noted to have a fever episode. She was brought to the office of Dr. Cortes. She was not as awake as usual state, was sent to the emergency room, was noted to be tachycardic in the 120s or so. This consultation was subsequently requested. The patient has received some intravenous fluid, has been admitted to the hospital, appears to be somewhat calm. According to her gluing pressman, there have been no reports of nausea, vomiting, diarrhea, coughing of significant degree, although she has had a cough for approximately 3 weeks, nothing more than usual but recently, no chills and no diarrhea, no bloody or black stools. Otherwise, review of systems unable to be provided. PAST MEDICAL HISTORY: Positive for history of E. 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 ALLERGIES: Codeine, sulfa. SOCIAL HISTORY: She is a resident of [place] actually with a 24-hour gluing pressman at home who has been attended to by Dr. Cortes for some time now. She does not smoke or drink alcoholic beverages at the present time. Her most amount of activity is getting up and sitting in a recliner or maybe even sometimes walking with a lot of assistance around the house. PHYSICAL EXAMINATION: GENERAL: Shows to be an elderly female, in no respiratory distress, lying flat. NECK: Supple. No jugular venous distention. LUNGS: Clear to auscultation and percussion. CARDIAC: Regular rhythm at the present time. Not tachycardic. Not bradycardic. No heaves or thrills noted. ABDOMEN: Soft, nontender. Positive bowel sounds. EXTREMITIES: There is no clubbing, cyanosis, nor is there any edema. NEUROLOGICAL: She is arousable and responsive, not verbally communicative. LABORATORY AND DIAGNOSTIC DATA: White count of 10, hemoglobin 12.6, and platelet count of 216. Her sodium is 142, potassium 4.0, chloride 108, bicarb 26, BUN 23, creatinine 1.2, and glucose of 103. Lactic acid 0.7. Calcium 9. Liver function tests are normal. Troponin 0.00. ProBNP is 1167. Albumin of 3.1 with a total protein of 7.7, and lipase of 157. Her last vitamin B12 is 1400 in October of this year. Her urinalysis showed 3+ leukocyte esterase, too numerous to count wbc's. Chest x-ray not been reported. Her electrocardiogram shows sinus tachycardia at a rate of 120s and 119 with some left axis deviation, poor R-wave progression, maybe . Unfortunately I am not able to identify an old EKG for comparison however. ASSESSMENT AND PLAN: 1. Sinus tachycardia. 2. Underlying urinary tract infection. 3. History of prior urosepsis. 4. Abnormal electrocardiogram, unknown chronicity. This patient was seen in cardiac consultation. The patient's symptoms are improving with hydration and antipyretic, suggestive of probably underlying sinus tachycardia as a cause. I doubt there is any cardiac arrhythmic issues as a primary event. We will follow the patient's status on telemetry. An echocardiogram will be ordered in light of the fact that she has a delay in R-wave progression and axis and depending on the findings on subsequent testing, further recommendations will be made. In the meantime, continuation of intravenous hydration and antibiotics for underlying urinary tract infection. Blood culture is pending. Chance Pate M.D. DR: Charlotte JOB#: [id number] CC:
[2019-05-31] VITALS (7 sets, daily range): BP systolic 110–129; BP diastolic 51–75
--- NOTE | 2019-05-31 07:29 | NUR ---
HAND-OFF: Report given to Hernan HUTTON RN. PATIENT RESTING IN BED, NO SIGNS OF DISTRESS NOTED. FAMILY AT BEDSIDE.
--- NOTE | 2019-05-31 07:56 | NUR ---
NURSE NOTES: Patient received from Belen KINNEY. Patient stable, nonverbal. and caregiver at bedside. No s/sx of distress with RR even and unlabored on RA. Patient eating her breakfast. Side rails padded and upx2, call light within reach, bed low and locked. Will continue to monitor.
[2019-05-31 07:57] LABS: BASOPHILS % (AUTO) 0.9 % (0.0-2.0); HEMATOCRIT 34.7 % (37.0-47.0); HEMOGLOBIN 11.6 G/DL (12.0-16.0); LYMPHOCYTES % (AUTO) 27.7 % (20.0-45.0); MEAN CORPUSCULAR VOLUME 96 FL (80-99); MONOCYTES % (AUTO) 6.3 % (1.0-10.0); NEUTROPHILS % (AUTO) 62.1 % (45.0-75.0); PLATELET COUNT 201 K/UL (150-450); RED CELL DISTRIBUTION WIDTH 13.1 % (11.6-14.8); WHITE BLOOD COUNT 7.8 K/UL (4.8-10.8)
[2019-05-31 08:02] LABS: INR 1.3 (0.9-1.1)
--- NOTE | 2019-05-31 08:43 | Diagnostic Imaging Report ---
Indication: Chest pain Technique: XRAY Chest 1v Comparison: 02/22/2019 Findings: The glandular lobe. There is prominence of the pulmonary vascularity. There are streaky opacities in the bilateral bases and trace to small bilateral pleural effusions. There are atherosclerotic gastric calcifications. High attenuation material is noted within an upper lumbar vertebral body suggesting prior kyphoplasty. There are degenerative changes in the spine. Impression: Limited exam with low lung volumes. Trace small bilateral pleural effusions and bibasilar airspace opacities which may related to atelectasis or pneumonia. Slight prominence of the pulmonary vascularity may be exaggerated by low lung volumes. Mild congestive changes can be also considered.
[2019-05-31] MEDS: Nuedexta Capsule 20/10mg ORAL SCH ×2 (09:19→21:50)
[2019-05-31 09:25] LABS: ANION GAP 10 mmol/L (5-15); BLOOD UREA NITROGEN 20 mg/dL (7-18); CALCIUM 8.3 MG/DL (8.5-10.1); CARBON DIOXIDE 25 MMOL/L (21-32); CHLORIDE 109 MMOL/L (98-107); POTASSIUM 3.2 MMOL/L (3.5-5.1); SODIUM 144 MMOL/L (136-145)
--- NOTE | 2019-05-31 09:46 | NUR ---
CASE MANAGEMENT:REVIEW 83 YR OLD FEMALE FROM HOME CC; FEVER SI: SEPSIS 98.0 129 27 144/87 95% ON RA BUN+23 IS:1L NS BOLUS X2 IV ROCEPHIN CHEST XRAY BLOOD CX : TO TELEMETRY INTERQUAL CRITERIA MET
[2019-05-31] MEDS: cefTRIAXone 1 GM in D5W 55 ML IVPB SCH (14:30)
[2019-05-31] MEDS ORDERED: Warfarin Sodium 3mg ORAL SCH (17:00)
--- NOTE | 2019-05-31 19:41 | NUR ---
NURSE NOTES: Received patient from GREGORIA Magaña, patient in stable condition, not oriented, but alert, responsive to stimuli, IV site patent right AC g 20, sitter at bedside, bed low&locked, side rails upX3, call light within reach, will continue to monitor and reassess
--- NOTE | 2019-05-31 19:41 | NUR ---
HAND-OFF: Report given to Mouna KINNEY. Patient now stable. HR was in 130's with highest at 139. Metoprolol 2.5mg IVP given and HR now in 80's. Endorsed plan of care.
[2019-05-31] MEDS ORDERED: Metoprolol Tartrate 5mg/5ml Inj IVP SCH (20:00)
--- NOTE | 2019-05-31 20:39 | Geriatric Progress Note ---
Assessment/Plan Problems: (1) Encephalopathy acute (2) UTI (urinary tract infection) (3) Tachyarrhythmia (4) Advanced dementia (5) Rheumatoid arthritis (6) Osteoporosis (7) Hyperlipidemia (8) Hypothyroidism (9) Seizure disorder (10) History of pulmonary embolism (11) B12 deficiency (12) Sepsis (13) Volume depletion Assessment/Plan Patient with UTI, associated encephalopathy, volume depletion, tachycardia with incipient sepsis, all improving with empiric ceftriaxone. Continue IV antibiotics pending C&S. Recheck INR, BMP. Monitor for recurrent tachycardia. D/c when C&S allow oral tx and labs stable. Discussed with: hospital staff, other - private caregiver Subjective Interval Events Patient more alert, tracks examiner, but non-verbal. Eating very well, had b.m. per caregiver. No overt distress. No recurrent tachycardia. Labs with decreased wbc. Mild hypokalemia associated with hydration. INR subtherapeutic. IVF held earlier due to good intake. Oral K supplementation ordered. Subjective Non-verbal, unable to respond. Geriatric Geriatric Last 24 Hour Vital Signs Date Time Temp Pulse Resp B/P (MAP) Pulse Ox O2 Delivery O2 Flow Rate FiO2 05/31/19 19:22 137 129/73 05/31/19 16:00 83 05/31/19 16:00 98.0 82 16 125/66 (85) 96 05/31/19 12:00 85 05/31/19 12:00 98.0 87 18 111/69 (83) 93 05/31/19 09:00 Room Air 05/31/19 08:00 77 05/31/19 08:00 97.3 80 18 110/51 (70) 89 05/31/19 04:00 97.3 79 18 119/71 (87) 92 05/31/19 04:00 72 05/31/19 00:52 97.6 78 19 126/75 (92) 91 05/31/19 00:00 97.6 78 19 126/75 (92) 96 05/31/19 00:00 78 05/30/19 21:00 Room Air Intake and Output 05/30/19 05/31/19 18:59 06:59 Intake Total 245 ml Balance 245 ml IV Total 245 ml # Voids 3 Laboratory Tests Test 05/31/19 06:12 White Blood Count 7.8 K/UL (4.8-10.8) Red Blood Count 3.60 M/UL (4.20-5.40) L Hemoglobin 11.6 G/DL (12.0-16.0) L Hematocrit 34.7 % (37.0-47.0) L Mean Corpuscular Volume 96 FL (80-99) Mean Corpuscular Hemoglobin 32.2 PG (27.0-31.0) H Mean Corpuscular Hemoglobin Concent 33.4 G/DL (32.0-36.0) Red Cell Distribution Width 13.1 % (11.6-14.8) Platelet Count 201 K/UL (150-450) Mean Platelet Volume 5.9 FL (6.5-10.1) L Neutrophils (%) (Auto) 62.1 % (45.0-75.0) Lymphocytes (%) (Auto) 27.7 % (20.0-45.0) Monocytes (%) (Auto) 6.3 % (1.0-10.0) Eosinophils (%) (Auto) 3.0 % (0.0-3.0) Basophils (%) (Auto) 0.9 % (0.0-2.0) Prothrombin Time 13.2 SEC (9.30-11.50) H Prothromb Time International Ratio 1.3 (0.9-1.1) H Activated Partial Thromboplast Time 35 SEC (23-33) H Sodium Level 144 MMOL/L (136-145) Potassium Level 3.2 MMOL/L (3.5-5.1) L Chloride Level 109 MMOL/L (98-107) H Carbon Dioxide Level 25 MMOL/L (21-32) Anion Gap 10 mmol/L (5-15) Blood Urea Nitrogen 20 mg/dL (7-18) H Creatinine 1.0 MG/DL (0.55-1.30) Estimat Glomerular Filtration Rate mL/min (>60) Glucose Level 88 MG/DL (74-106) Calcium Level 8.3 MG/DL (8.5-10.1) L Current Medications Medications (Trade) Dose Ordered Sig/Tres Route PRN Reason Start Time Stop Time Status Last Admin Dose Admin Acetaminophen (Tylenol) 650 mg Q4H PRN ORAL Mild Pain (Pain Scale 1-3) 05/30/19 20:00 06/29/19 19:59 Acetaminophen (Tylenol) 650 mg Q4H PRN ORAL fever (temp>100.5F) 05/30/19 20:00 06/29/19 19:59 Ceftriaxone Sodium 1 gm/ Dextrose 55 ml @ 110 mls/hr Q24H IVPB 05/31/19 15:00 06/07/19 14:59 05/31/19 14:30 Dextromethorphan/ Quinidine (Nuedexta Capsule) 1 cap Q12HR ORAL 05/30/19 21:00 06/29/19 20:59 05/31/19 09:19 Dextrose (Dextrose 50%) 25 ml Q30M PRN IV Hypoglycemia 05/30/19 20:00 06/29/19 19:59 Dextrose (Dextrose 50%) 50 ml Q30M PRN IV Hypoglycemia 05/30/19 20:00 06/29/19 19:59 Donepezil HCl (Aricept) 10 mg QHS ORAL 05/30/19 21:00 06/29/19 20:59 05/30/19 21:02 Escitalopram Oxalate (Lexapro) 20 mg DAILY ORAL 05/31/19 09:00 06/30/19 08:59 05/31/19 09:19 Folic Acid (Folate) 1 mg DAILY ORAL 05/31/19 09:00 06/30/19 08:59 05/31/19 09:19 Levetiracetam (Keppra) 500 mg Q12HR ORAL 05/30/19 21:00 06/29/19 20:59 05/31/19 09:19 Levothyroxine Sodium (Synthroid) 50 mcg DAILY@0630 ORAL 05/31/19 06:30 06/30/19 06:29 05/31/19 05:50 Metoprolol Tartrate (Lopressor) 2.5 mg ONCE IVP 05/31/19 20:00 05/31/19 21:00 05/31/19 19:22 Warfarin Sodium (Coumadin) 3 mg DAILY@17 ORAL 05/31/19 17:00 06/05/19 16:59 05/31/19 16:40 Height (Feet): 5 Height (Inches): 4.00 Weight (Pounds): 144 General Appearance: no apparent distress, alert Head: normocephalic, atraumatic Eyes: bilateral anicteric ENT: dry mucus membranes Neck: full range of motion, no mass Respiratory: decreased breath sounds Cardiovascular: regular rate, rhythm Gastrointestinal: normal bowel sounds, non tender, soft, no mass, no organomegaly, non-distended Musculoskeletal: no calf tenderness Edema: no edema noted Generalized Neurologic: no new focality Kolby Salazar MD May 31, 2019 20:39
[2019-05-31] MEDS: Donepezil 10mg tab ORAL SCH (21:50)
[2019-06-01] VITALS: BP 132/79
[2019-06-01 04:00] VITALS: BP 138/76
--- NOTE | 2019-06-01 07:53 | NUR ---
HAND-OFF: Report given to Archana KINNEY, patient in stable condition, plan of care endorsed.
[2019-06-01 08:00] VITALS: BP 135/67
--- NOTE | 2019-06-01 08:00 | NUR ---
NURSE NOTES: Patient received from Mouna Chandler RN. Patient stable, awake. No s/sx of distress and RR even and unlabored on RA. Side rails upx2, call light within reach, bed low and locked. Will continue to monitor.
[2019-06-01 08:45] LABS: BASOPHILS % (AUTO) 0.6 % (0.0-2.0); EOSINOPHILS % (AUTO) 0.8 % (0.0-3.0); HEMATOCRIT 37.2 % (37.0-47.0); HEMOGLOBIN 12.2 G/DL (12.0-16.0); LYMPHOCYTES % (AUTO) 18.1 % (20.0-45.0); MEAN CORPUSCULAR VOLUME 97 FL (80-99); MONOCYTES % (AUTO) 4.3 % (1.0-10.0); NEUTROPHILS % (AUTO) 76.2 % (45.0-75.0); PLATELET COUNT 230 K/UL (150-450); RED BLOOD COUNT 3.84 M/UL (4.20-5.40); RED CELL DISTRIBUTION WIDTH 12.9 % (11.6-14.8); WHITE BLOOD COUNT 8.3 K/UL (4.8-10.8)
[2019-06-01 09:00] LABS: INR 1.2 (0.9-1.1)
[2019-06-01] MEDS: Nuedexta Capsule 20/10mg ORAL SCH ×2 (09:07→21:42)
[2019-06-01 09:13] LABS: ANION GAP 7 mmol/L (5-15); BLOOD UREA NITROGEN 21 mg/dL (7-18); CALCIUM 8.7 MG/DL (8.5-10.1); CARBON DIOXIDE 28 MMOL/L (21-32); CHLORIDE 107 MMOL/L (98-107); CREATININE 0.9 MG/DL (0.55-1.30); POTASSIUM 3.7 MMOL/L (3.5-5.1); SODIUM 142 MMOL/L (136-145)
--- NOTE | 2019-06-01 10:52 | NUR ---
RD ASSESSMENT & RECOMMENDATIONS SEE CARE ACTIVITY FOR COMPLETE ASSESSMENT DAILY ESTIMATED NEEDS: Needs based on Sepsis, 58kg adj 25-35 kcals/kg 5706-3891 total kcals 1-2 g protein/kg 58-116 g total protein 25-30 mL/kg 8199-6371 total fluid mLs NUTRITION DIAGNOSIS: Swallowing difficulty r/t dysphagia / advanced dementia as evidenced by pt on pureed moist, NTL diet. CURRENT DIET:Regular / pureed, NTL / Kosher PO DIET RECOMMENDATIONS: Regular/ texture as tolerated or per ROLLER SKATE REPAIRER ADDITIONAL RECOMMENDATIONS: - Consider ROLLER SKATE REPAIRER eval for appropriate diet texture - Monitor for continued good po intake - Check lytes, replete as needed - Weekly weights - Coumadin DNI ed provided 06/01 .
--- NOTE | 2019-06-01 11:34 | Cardiology Progress Note ---
Assessment/Plan Assessment/Plan 1. Sinus tachycardia. 2. Underlying urinary tract infection. 3. History of prior urosepsis. 4. Abnormal electrocardiogram, unknown chronicity. had another episode of tachy yest i was called iv bb low dsoe adminstered heart rate now seem ok the stirp reviwed due to termor or movement artifact diffiutl to interpret , no ekg lwo dose bb for now po Subjective ROS Limited/Unobtainable: Yes Subjective per care taekr at [facility] well ate ok , interacting normlally Objective Last 24 Hour Vital Signs Date Time Temp Pulse Resp B/P (MAP) Pulse Ox O2 Delivery O2 Flow Rate FiO2 06/01/19 09:00 Room Air 06/01/19 08:00 97.0 71 18 135/67 (89) 92 06/01/19 08:00 80 06/01/19 04:00 63 06/01/19 04:00 97.1 66 18 138/76 (96) 91 06/01/19 00:00 81 06/01/19 00:00 97.9 82 19 132/79 (96) 94 05/31/19 21:00 Room Air 05/31/19 20:00 98.6 136 19 129/73 (91) 95 05/31/19 20:00 80 05/31/19 19:22 137 129/73 05/31/19 16:00 83 05/31/19 16:00 98.0 82 16 125/66 (85) 96 05/31/19 12:00 85 05/31/19 12:00 98.0 87 18 111/69 (83) 93 General Appearance: no apparent distress Cardiovascular: normal rate Respiratory/Chest: lungs clear Abdomen: non tender, soft Extremities: no swelling Intake and Output 05/31/19 06/01/19 19:00 07:00 Intake Total 765 ml Balance 765 ml Intake Oral 500 ml IV Total 265 ml # Voids 2 3 # Bowel Movements 1 Laboratory Tests Test 06/01/19 06:30 White Blood Count 8.3 K/UL (4.8-10.8) Red Blood Count 3.84 M/UL (4.20-5.40) L Hemoglobin 12.2 G/DL (12.0-16.0) Hematocrit 37.2 % (37.0-47.0) Mean Corpuscular Volume 97 FL (80-99) Mean Corpuscular Hemoglobin 31.9 PG (27.0-31.0) H Mean Corpuscular Hemoglobin Concent 32.9 G/DL (32.0-36.0) Red Cell Distribution Width 12.9 % (11.6-14.8) Platelet Count 230 K/UL (150-450) Mean Platelet Volume 5.5 FL (6.5-10.1) L Neutrophils (%) (Auto) 76.2 % (45.0-75.0) H Lymphocytes (%) (Auto) 18.1 % (20.0-45.0) L Monocytes (%) (Auto) 4.3 % (1.0-10.0) Eosinophils (%) (Auto) 0.8 % (0.0-3.0) Basophils (%) (Auto) 0.6 % (0.0-2.0) Prothrombin Time 12.8 SEC (9.30-11.50) H Prothromb Time International Ratio 1.2 (0.9-1.1) H Sodium Level 142 MMOL/L (136-145) Potassium Level 3.7 MMOL/L (3.5-5.1) Chloride Level 107 MMOL/L (98-107) Carbon Dioxide Level 28 MMOL/L (21-32) Anion Gap 7 mmol/L (5-15) Blood Urea Nitrogen 21 mg/dL (7-18) H Creatinine 0.9 MG/DL (0.55-1.30) Estimat Glomerular Filtration Rate mL/min (>60) Glucose Level 99 MG/DL (74-106) Calcium Level 8.7 MG/DL (8.5-10.1) Microbiology Date/Time Source Procedure Growth Status 05/30/19 16:00 Blood Blood Culture - Preliminary NO GROWTH AFTER 24 HOURS Resulted 05/30/19 15:45 Blood Blood Culture - Preliminary NO GROWTH AFTER 24 HOURS Resulted 05/30/19 18:00 Urine,Clean Catch Urine Culture - Preliminary Strep Species, Gamma-Hemolytic Resulted Chance Pate MD Jun 01, 2019 11:34
[2019-06-01 12:00] VITALS: BP 146/84
[2019-06-01] MEDS: Atenolol 25mg tab ORAL SCH (12:10)
--- NOTE | 2019-06-01 13:48 | Cardiology Report ---
APPROVED REPORT EKG Measurement Heart [id number] SD [id number] Normal sinus rhythm Possible Anterior infarct, age undetermined Abnormal ECG
--- NOTE | 2019-06-01 14:03 | Geriatric Progress Note ---
Assessment/Plan Problems: (1) Encephalopathy acute (2) UTI (urinary tract infection) (3) Tachyarrhythmia (4) Advanced dementia (5) Rheumatoid arthritis (6) Osteoporosis (7) Hyperlipidemia (8) Hypothyroidism (9) Seizure disorder (10) History of pulmonary embolism (11) B12 deficiency (12) Sepsis (13) Volume depletion Assessment/Plan UTI, likely sensitive to penicillin or ampicillin, but will keep on ceftriaxone until sensitivities available. Tachyarrhythmia on atenolol, monitor. May account for apparent rapid onset of encephalopathic changes. Subtherapeutic anticoagulation, will give one time dose of 6 mg. Spoke with staff about having bring in [place] to compare with lab values. Continue present regimen otherwise. Discussed with: hospital staff, other - private caregiver Subjective Interval Events Patient remains non-verbal but smiling at examiner today, suggesting further resolution of encephalopathy. Apparently, patient had episode of tachycardia last evening again into 140 range. Available data reportedly suggests sinus rhythm, but ? some type of re- entrant tachycardia still a consideration. Started on low dose atenolol by Dr. Pate. Urine C&S now growing gamma hemolytic strep, sensitivities still pending. Blood C&S NGTD. Caregiver reported continued good intake. Able to take few steps. Staff reports no other new issues. K corrected today. Note INR still low. Subjective Non-verbal, unable to respond. Geriatric Geriatric Last 24 Hour Vital Signs Date Time Temp Pulse Resp B/P (MAP) Pulse Ox O2 Delivery O2 Flow Rate FiO2 06/01/19 12:10 72 146/84 06/01/19 12:00 67 06/01/19 12:00 96.4 72 20 146/84 (104) 95 06/01/19 09:00 Room Air 06/01/19 08:00 97.0 71 18 135/67 (89) 92 06/01/19 08:00 80 06/01/19 04:00 63 06/01/19 04:00 97.1 66 18 138/76 (96) 91 06/01/19 00:00 81 06/01/19 00:00 97.9 82 19 132/79 (96) 94 05/31/19 21:00 Room Air 05/31/19 20:00 98.6 136 19 129/73 (91) 95 05/31/19 20:00 80 05/31/19 19:22 137 129/73 05/31/19 16:00 83 05/31/19 16:00 98.0 82 16 125/66 (85) 96 Intake and Output 05/31/19 06/01/19 19:00 07:00 Intake Total 765 ml Balance 765 ml Intake Oral 500 ml IV Total 265 ml # Voids 2 3 # Bowel Movements 1 Laboratory Tests Test 06/01/19 06:30 White Blood Count 8.3 K/UL (4.8-10.8) Red Blood Count 3.84 M/UL (4.20-5.40) L Hemoglobin 12.2 G/DL (12.0-16.0) Hematocrit 37.2 % (37.0-47.0) Mean Corpuscular Volume 97 FL (80-99) Mean Corpuscular Hemoglobin 31.9 PG (27.0-31.0) H Mean Corpuscular Hemoglobin Concent 32.9 G/DL (32.0-36.0) Red Cell Distribution Width 12.9 % (11.6-14.8) Platelet Count 230 K/UL (150-450) Mean Platelet Volume 5.5 FL (6.5-10.1) L Neutrophils (%) (Auto) 76.2 % (45.0-75.0) H Lymphocytes (%) (Auto) 18.1 % (20.0-45.0) L Monocytes (%) (Auto) 4.3 % (1.0-10.0) Eosinophils (%) (Auto) 0.8 % (0.0-3.0) Basophils (%) (Auto) 0.6 % (0.0-2.0) Prothrombin Time 12.8 SEC (9.30-11.50) H Prothromb Time International Ratio 1.2 (0.9-1.1) H Sodium Level 142 MMOL/L (136-145) Potassium Level 3.7 MMOL/L (3.5-5.1) Chloride Level 107 MMOL/L (98-107) Carbon Dioxide Level 28 MMOL/L (21-32) Anion Gap 7 mmol/L (5-15) Blood Urea Nitrogen 21 mg/dL (7-18) H Creatinine 0.9 MG/DL (0.55-1.30) Estimat Glomerular Filtration Rate mL/min (>60) Glucose Level 99 MG/DL (74-106) Calcium Level 8.7 MG/DL (8.5-10.1) Current Medications Medications (Trade) Dose Ordered Sig/Tres Route PRN Reason Start Time Stop Time Status Last Admin Dose Admin Acetaminophen (Tylenol) 650 mg Q4H PRN ORAL Mild Pain (Pain Scale 1-3) 05/30/19 20:00 06/29/19 19:59 Acetaminophen (Tylenol) 650 mg Q4H PRN ORAL fever (temp>100.5F) 05/30/19 20:00 06/29/19 19:59 Atenolol (Tenormin) 12.5 mg DAILY ORAL 06/01/19 11:45 07/01/19 11:44 06/01/19 12:10 Ceftriaxone Sodium 1 gm/ Dextrose 55 ml @ 110 mls/hr Q24H IVPB 05/31/19 15:00 06/07/19 14:59 05/31/19 14:30 Dextromethorphan/ Quinidine (Nuedexta Capsule) 1 cap Q12HR ORAL 05/30/19 21:00 06/29/19 20:59 06/01/19 09:07 Dextrose (Dextrose 50%) 25 ml Q30M PRN IV Hypoglycemia 05/30/19 20:00 06/29/19 19:59 Dextrose (Dextrose 50%) 50 ml Q30M PRN IV Hypoglycemia 05/30/19 20:00 06/29/19 19:59 Donepezil HCl (Aricept) 10 mg QHS ORAL 05/30/19 21:00 06/29/19 20:59 05/31/19 21:50 Escitalopram Oxalate (Lexapro) 20 mg DAILY ORAL 05/31/19 09:00 06/30/19 08:59 06/01/19 09:08 Folic Acid (Folate) 1 mg DAILY ORAL 05/31/19 09:00 06/30/19 08:59 06/01/19 09:07 Levetiracetam (Keppra) 500 mg Q12HR ORAL 05/30/19 21:00 06/29/19 20:59 06/01/19 09:08 Levothyroxine Sodium (Synthroid) 50 mcg DAILY@0630 ORAL 05/31/19 06:30 06/30/19 06:29 06/01/19 06:19 Warfarin Sodium (Coumadin) 3 mg DAILY@17 ORAL 05/31/19 17:00 06/05/19 16:59 05/31/19 16:40 Height (Feet): 5 Height (Inches): 4.00 Weight (Pounds): 144 General Appearance: no apparent distress, alert, non-toxic Head: normocephalic, atraumatic Eyes: bilateral anicteric Neck: full range of motion, no mass Respiratory: decreased breath sounds Cardiovascular: regular rate, rhythm Gastrointestinal: normal bowel sounds, non tender, soft, no mass, no organomegaly, non-distended Musculoskeletal: no calf tenderness Edema: no edema noted Generalized Neurologic: no new focality Kolby Salazar MD Jun 01, 2019 14:03
[2019-06-01] MEDS: cefTRIAXone 1 GM in D5W 55 ML IVPB SCH (14:46)
[2019-06-01 16:00] VITALS: BP 121/60
[2019-06-01] MEDS ORDERED: Warfarin Sodium 3mg ORAL SCH (17:00)
--- NOTE | 2019-06-01 19:31 | NUR ---
HAND-OFF: Report given to Mouna KINNEY. Patient stable. Plan of care endorsed. Addendum: 06/01/19 at 1933 by DANNY HUTTON RN Endorsed that will bring INR testing machine from home as requested by Dr. Salazar.
[2019-06-01 20:00] VITALS: BP 130/69
[2019-06-01] MEDS: Donepezil 10mg tab ORAL SCH (21:42)
[2019-06-02] VITALS: BP 144/86
--- NOTE | 2019-06-02 01:20 | NUR ---
NURSE NOTES: Received patient from GREGORIA Magaña, patient in stable condition, not oriented, but alert, responsive to stimuli, IV site patent right AC g 20, at bedside, bed low&locked, side rails upX3, call light within reach, will continue to monitor and reassess
[2019-06-02 04:00] VITALS: BP 149/87
--- NOTE | 2019-06-02 07:54 | NUR ---
HAND-OFF: Report given to GREGORIA Onofre patient in stable condition, plan of care endorsed.
[2019-06-02 08:00] VITALS: BP 132/69
--- NOTE | 2019-06-02 08:23 | NUR ---
NURSE NOTES: pt in bed and awake AOx1 caregiver is at bedside. Pt on athletic monitor no signs of cardiac or respiratory distress at this time. Call light within reach, bed is in lowest position and locked. Will continue to monitor pt and lab values.
[2019-06-02 08:34] LABS: INR 1.4 (0.9-1.1)
[2019-06-02] MEDS: Atenolol 25mg tab ORAL SCH (10:02)
[2019-06-02] MEDS: Nuedexta Capsule 20/10mg ORAL SCH (10:03)
[2019-06-02 12:00] VITALS: BP 136/81
--- NOTE | 2019-06-02 13:45 | Cardiology Progress Note ---
Assessment/Plan Assessment/Plan 1. Sinus tachycardia. 2. Underlying urinary tract infection. 3. History of prior urosepsis. 4. Abnormal electrocardiogram, unknown chronicity. had another episode of tachy yest i was called iv bb low dsoe adminstered heart rate now seem ok the stirp reviwed due to termor or movement artifact diffiutl to interpret , no ekg lwo dose bb for now po Subjective ROS Limited/Unobtainable: Yes Subjective per home health care worker at bedside doign well ate ok interacting normally tele sinus Objective Last 24 Hour Vital Signs Date Time Temp Pulse Resp B/P (MAP) Pulse Ox O2 Delivery O2 Flow Rate FiO2 06/02/19 10:02 72 132/69 06/02/19 08:00 97.0 72 18 132/69 (90) 94 06/02/19 04:00 60 06/02/19 04:00 97.3 72 19 149/87 (107) 94 06/02/19 00:00 97.3 77 19 144/86 (105) 94 06/02/19 00:00 64 06/01/19 21:00 Room Air 06/01/19 21:00 68 06/01/19 20:00 71 06/01/19 20:00 97.0 72 19 130/69 (89) 95 06/01/19 16:00 97.0 69 18 121/60 (80) 94 06/01/19 16:00 68 Intake and Output 06/01/19 06/02/19 19:00 07:00 Intake Total 55 ml Balance 55 ml IV Total 55 ml # Voids 2 # Bowel Movements 2 Laboratory Tests Test 06/02/19 06:12 Prothrombin Time 14.3 SEC (9.30-11.50) H Prothromb Time International Ratio 1.4 (0.9-1.1) H Thyroid Stimulating Hormone (TSH) 8.018 uiU/mL (0.358-3.740) Microbiology Date/Time Source Procedure Growth Status 05/30/19 16:00 Blood Blood Culture - Preliminary NO GROWTH AFTER 48 HOURS Resulted 05/30/19 15:45 Blood Blood Culture - Preliminary NO GROWTH AFTER 48 HOURS Resulted 05/30/19 18:00 Urine,Clean Catch Urine Culture - Final Enterococcus Faecalis Complete Chance Pate MD Jun 02, 2019 13:45
--- NOTE | 2019-06-02 14:46 | NUR ---
NURSE NOTES: Notified doctor accounting policy consultant about pt INR results from home INR machine. INR today at 1000am 1.5. Addendum: 06/02/19 at 1453 by Jemima Combs RN NURSE NOTES: Notified doctor accounting policy consultant about pt INR results from home INR machine. INR today at 1000am 1.5. Also pt family wants pt to be DC today because she is no longer in a room by herself. Pt has child care associate teacher 09/01 to keep pt feels safe and caregiver needs to spend the night by her bedside.
[2019-06-02 16:00] VITALS: BP 146/70
[2019-06-02] MEDS ORDERED: ATENOLOL25 MG ORAL (16:11)
[2019-06-02] MEDS ORDERED: COUMADIN3 MG ORAL (16:11)
[2019-06-02] MEDS ORDERED: AMOXIL250 MG ORAL (16:11)
--- NOTE | 2019-06-02 16:18 | Geriatric Progress Note ---
Assessment/Plan Problems: (1) Encephalopathy acute (2) UTI (urinary tract infection) (3) Tachyarrhythmia (4) Advanced dementia (5) Rheumatoid arthritis (6) Osteoporosis (7) Hyperlipidemia (8) Hypothyroidism (9) Seizure disorder (10) History of pulmonary embolism (11) B12 deficiency (12) Sepsis (13) Volume depletion Assessment/Plan Convert to amoxacillin. anxious to d/c to home because of patient's disorientation, hopes to reacquaint her with home surroundings MATTHEW. Reviewed new meds atenolol and amoxacillin. To give double dose of Warfarin today, the resume usual dose tomorrow. Resume all usual home meds otherwise. Discussed with: family, hospital staff, other - private caregiver Subjective Interval Events Patient eating well, no changes. INR still low at 1.4. Urine with sensitive enterococcus. Subjective Non-verbal, unable to respond. Geriatric Geriatric Last 24 Hour Vital Signs Date Time Temp Pulse Resp B/P (MAP) Pulse Ox O2 Delivery O2 Flow Rate FiO2 06/02/19 10:02 72 132/69 06/02/19 08:00 97.0 72 18 132/69 (90) 94 06/02/19 04:00 60 06/02/19 04:00 97.3 72 19 149/87 (107) 94 06/02/19 00:00 97.3 77 19 144/86 (105) 94 06/02/19 00:00 64 06/01/19 21:00 Room Air 06/01/19 21:00 68 06/01/19 20:00 71 06/01/19 20:00 97.0 72 19 130/69 (89) 95 Intake and Output 06/01/19 06/02/19 19:00 07:00 Intake Total 55 ml Balance 55 ml IV Total 55 ml # Voids 2 # Bowel Movements 2 Laboratory Tests Test 06/02/19 06:12 Prothrombin Time 14.3 SEC (9.30-11.50) H Prothromb Time International Ratio 1.4 (0.9-1.1) H Thyroid Stimulating Hormone (TSH) 8.018 uiU/mL (0.358-3.740) Current Medications Medications (Trade) Dose Ordered Sig/Tres Route PRN Reason Start Time Stop Time Status Last Admin Dose Admin Acetaminophen (Tylenol) 650 mg Q4H PRN ORAL Mild Pain (Pain Scale 1-3) 05/30/19 20:00 06/29/19 19:59 Acetaminophen (Tylenol) 650 mg Q4H PRN ORAL fever (temp>100.5F) 05/30/19 20:00 06/29/19 19:59 Atenolol (Tenormin) 12.5 mg DAILY ORAL 06/01/19 11:45 07/01/19 11:44 06/02/19 10:02 Ceftriaxone Sodium 1 gm/ Dextrose 55 ml @ 110 mls/hr Q24H IVPB 05/31/19 15:00 06/07/19 14:59 06/01/19 14:46 Dextromethorphan/ Quinidine (Nuedexta Capsule) 1 cap Q12HR ORAL 05/30/19 21:00 06/29/19 20:59 06/02/19 10:03 Dextrose (Dextrose 50%) 25 ml Q30M PRN IV Hypoglycemia 05/30/19 20:00 06/29/19 19:59 Dextrose (Dextrose 50%) 50 ml Q30M PRN IV Hypoglycemia 05/30/19 20:00 06/29/19 19:59 Donepezil HCl (Aricept) 10 mg QHS ORAL 05/30/19 21:00 06/29/19 20:59 06/01/19 21:42 Escitalopram Oxalate (Lexapro) 20 mg DAILY ORAL 05/31/19 09:00 06/30/19 08:59 06/02/19 10:03 Folic Acid (Folate) 1 mg DAILY ORAL 05/31/19 09:00 06/30/19 08:59 06/02/19 10:04 Levetiracetam (Keppra) 500 mg Q12HR ORAL 05/30/19 21:00 06/29/19 20:59 06/02/19 09:58 Levothyroxine Sodium (Synthroid) 50 mcg DAILY@0630 ORAL 05/31/19 06:30 06/30/19 06:29 06/02/19 06:25 Warfarin Sodium (Coumadin) 3 mg DAILY@17 ORAL 06/02/19 17:00 06/07/19 16:59 Height (Feet): 5 Height (Inches): 4.00 Weight (Pounds): 144 General Appearance: no apparent distress, alert, non-toxic Head: normocephalic, atraumatic Eyes: bilateral anicteric Neck: full range of motion, no mass Respiratory: lungs clear, decreased breath sounds Cardiovascular: regular rate, rhythm Gastrointestinal: normal bowel sounds, non tender, soft, no mass, no organomegaly, non-distended Musculoskeletal: no calf tenderness Edema: no edema noted Generalized Neurologic: no new focality Kolby Salazar MD Jun 02, 2019 16:18
--- NOTE | 2019-06-02 16:45 | Discharge Summary ---
Discharge Summary Discharge Summary _ Date of Admission: May 30, 2019. Date of Discharge: June 02, 2019. Discharge Diagnoses: 1. Urinary tract infection due to enterococcus faecalis with associated altered mental status, encephalopathy, fever, volume depletion, and tachycardia. 2. Transient tachyarrythmias associated with this and prior urinary tract infection, started on atenolol per Dr. Pate. 3. Advanced cognitive dysfunction primarily due to Alzheimer disease. Consider contributing components of small vessel cerebrovascular disease and B12 deficiency. 4. Multifactorial gait disorder. 5. History of fall with rib fractures. 6. History of rheumatoid arthritis, on Simponi. 7. Hypothyroidism. 8. Hyperlipidemia. 9. Seizure disorder. 10. Osteopenia. 11. History of migraines. 12. History of depression with anxiety and paranoia. 13. 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 14. 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 15. Mitral valve prolapse. 16. Status post cataract surgery, left eye. 17. Status post appendectomy. 18. Osteoporosis, treated with Denosumab. Medications: 1. Vitamin D3 3000 units qod. 2. Cyanocobalamin 1000 mcg IM monthly. 3. Prolia every 6 months, last administered approximately 3 months ago 4. Nuedexta twice daily. 5. Lexapro 20 mg daily. 6. Folate 1 mg daily. 7. Simponi monthly per Dr. Nava. 8. Levothyroxine 50 mcg 6 times a week. 9. Lovastatin 40 mg nightly. 10. Belsomra 10 mg nightly. 11. Warfarin 3 mg daily. 12. Keppra 500 mg twice daily. 13. Cranberry pills. 14. Atenolol 12.5 mg daily. 15. Amoxicillin 500 mg every eight hours x 4 additional days. Allergies: Codeine, Sulfa drugs including Trimethoprim/sulfa. History of Present Illness: On initial evaluation in the emergency department, Ms. Snider was noted to have tachycardia with a heart rate of over 130 and evidence of probable intravascular volume depletion. Additionally her urinalysis revealed too numerous to count white cells and bacteriuria consistent with probable recurrent urinary tract infection. The patient was bolused with normal saline and started on empiric ceftriaxone intravenously. She was admitted to the telemetry unit. By the time Ms. Snider reached the floor, her heart rate was in the 80s. She was continued on low rate intravenous hydration and the empiric ceftriaxone, as well as her usual home medications. She very rapidly improved, with improved mentation. By the second day her oral intake had returned to baseline. On the telemetry, Ms. Snider was noted to have a recurrent episode of tachycardia which appeared primarily sinus although twelve-lead EKG was not available. Dr. Pate was asked to evaluate patient from a cardiac point of view. He recommended initiation of a low-dose of atenolol. A cardiac echo was ordered as well, with preliminary results revealing only mild diastolic dysfunction. The patient's INR was subtherapeutic despite being on her usual dose of warfarin. Patient's was asked to bring in the [place] from home but the results match the laboratory results. Patient was loaded with double her usual dose of warfarin on the day prior to discharge and the day of discharge, but was instructed to resume the usual dose of warfarin subsequently. Home [place] will be reviewed. Patient's TSH was mildly elevated, but given the recent literature regarding benefit of treating with borderline hypothyroid values in the elderly, the levothyroxine dosing was not changed and follow-up will be done as an outpatient. Otherwise the patient will be placed back on her usual home medications as noted above. The patient will be followed up in the office. Her discharge instructions were reviewed extensively with her who is her primary caregiver and surrogate decision maker. Kolby Salazar MD Jun 02, 2019 16:45
[2019-06-02] MEDS ORDERED: Warfarin Sodium 3mg ORAL SCH (17:00)
--- NOTE | 2019-06-02 18:25 | NUR ---
NURSE NOTES: pt left via private vehicle with . Pt p/u new medication from pharmacy already and will give medication at home. DC information given to pt family member, family verbalized understanding of DC instructions and medications they need to stop at home and meds to continue at home. athletic monitor off from pt. Iv was discontinued site is not bleeding. Belongings were collected and signed for, for pt to take home. Pt was advised to schedule follow up appt with PCP within 1 wk of DC.
== END 2019-06-02 16:06 | disposition home or self-care (01) | DRG 872 ==
LOC: EDBEDREQ 14:52 → EMR 15:05 → 2E 15:10 → EDBEDREQ 15:56 → 2E 23:18
DX: A41.9 Sepsis, unspecified organism (principal); G93.40 Encephalopathy, unspecified; N39.0 Urinary tract infection, site not specified; G40.909 Epilepsy, unspecified, not intractable, without status epilepticus; M06.9 Rheumatoid arthritis, unspecified; B95.2 Enterococcus as the cause of diseases classified elsewhere; Z88.6 Allergy status to analgesic agent; Z88.1 Allergy status to other antibiotic agents; Z88.2 Allergy status to sulfonamides; E03.9 Hypothyroidism, unspecified; E78.5 Hyperlipidemia, unspecified; I34.1 Nonrheumatic mitral (valve) prolapse; M81.0 Age-related osteoporosis without current pathological fracture; Z86.711 Personal history of pulmonary embolism; Z79.01 Long term (current) use of anticoagulants; E53.8 Deficiency of other specified B group vitamins; E86.9 Volume depletion, unspecified; G30.9 Alzheimer's disease, unspecified; F02.80 Dementia in other diseases classified elsewhere, unspecified severity, without behavioral disturbance, psychotic disturbance, mood disturbance, and anxiety; F41.8 Other specified anxiety disorders; F22 Delusional disorders; R26.9 Unspecified abnormalities of gait and mobility; Z86.718 Personal history of other venous thrombosis and embolism
CPT/HCPCS: 36415; 71045; 80048; 80053; 80299; 81003; 82550; 82553; 83605; 83690; 83880; 84443; 84484; 85025; 85610; 85730; 87040; 87086; 87181; 93005; 93306; 96365; 96375; 99291; J7030; J8499

== ENCOUNTER 2020-03-19 15:52 | Inpatient (IN) | payer MEDICARE, OTHER ==
[~2020-03-19] VITALS: Ht 162.6 cm; Wt 60.6 kg
[~2020-03-19 15:52] MED LIST changes: +AMOXIL250 MG ORAL; +ATENOLOL25 MG ORAL; +COUMADIN3 MG ORAL; +LEXAPRO20 MG ORAL; +VITAMIN D250000 UNI1 ORAL
[2020-03-19 16:10] VITALS: BP 141/84
--- NOTE | 2020-03-19 16:33 | Diagnostic Imaging Report ---
Indication: Chest pain Technique: One view of the chest Comparison: none Findings: No acute infiltrates, effusions, or congestion. Tortuous calcified aorta. Normal heart size. Upper mediastinum unremarkable. No significant change Impression: No acute process.
[2020-03-19 16:36] LABS: BASOPHILS % (AUTO) 0.8 % (0.0-2.0); EOSINOPHILS % (AUTO) 0.5 % (0.0-3.0); HEMATOCRIT 43.8 % (37.0-47.0); HEMOGLOBIN 13.9 G/DL (12.0-16.0); LYMPHOCYTES % (AUTO) 19.6 % (20.0-45.0); MEAN CORPUSCULAR VOLUME 101 FL (80-99); MONOCYTES % (AUTO) 8.1 % (1.0-10.0); NEUTROPHILS % (AUTO) 71.1 % (45.0-75.0); PLATELET COUNT 248 K/UL (150-450); RED BLOOD COUNT 4.35 M/UL (4.20-5.40); RED CELL DISTRIBUTION WIDTH 14.5 % (11.6-14.8); WHITE BLOOD COUNT 10.7 K/UL (4.8-10.8)
[2020-03-19 16:47] LABS: CALCIUM 9.3 MG/DL (8.5-10.1); POTASSIUM 3.7 MMOL/L (3.5-5.1)
[2020-03-19 17:01] LABS: ALBUMIN 3.6 G/DL (3.4-5.0); ALBUMIN/GLOBULIN RATIO 0.8 (1.0-2.7); BILIRUBIN,TOTAL 0.6 MG/DL (0.2-1.0); CKMB 0.6 NG/ML (0.0-3.6)
[2020-03-19 17:09] LABS: APPEARANCE,URINE SLIGHTLY CLOUDY; BILIRUBIN, URINE NEGATIVE (NEGATIVE); GLUCOSE, URINE (UA) NEGATIVE (NEGATIVE); KETONES,URINE 1+ (NEGATIVE); LEUKOCYTE ESTERASE ,URINE 2+ (NEGATIVE); NITRITE,URINE NEGATIVE (NEGATIVE); PH,URINE 6.5 (4.5-8.0); PROTEIN,URINE 3+ (NEGATIVE); UROBILINOGEN,URINE 1 MG/DL (0.0-1.0)
[2020-03-19 17:12] LABS: COLOR,URINE PALE YELLOW
--- NOTE | 2020-03-19 17:18 | Diagnostic Imaging Report ---
Indications: Altered mental status Technique: Spiral acquisitions obtained through the brain. Angled axial and coronal 5 x 5 mm slices were reconstructed. Total dose length product 1018 mGycm. CTDI vol(s) 53 mGy. Dose reduction achieved using automated exposure control Comparison: No comparison CT scans. Reference made to MRI dated 10/22/2012 Findings: There is marked age-related enlargement of the ventricles and extra axial CSF spaces. Subacute or old lacunar infarct is seen in the right tatum right aorta, extending into the basal ganglia. This is not evident on the 2013 exam. Old deep white matter infarct is seen in the left tatum radiata, small. There is periventricular deep white matter low-attenuation, consistent with chronic microvascular ischemic change. No acute intracranial hemorrhage or edema. No mass effect nor midline shift. The mastoids are clear. The calvarium is intact. Impression: Subacute versus old right tatum radiata and basal ganglia lacunar infarct. If clinically indicated, MRI may be useful to clarify age Other chronic and age-related changes, as described Negative for acute intracranial bleed or mass effect The CT scanner at [facility] is accredited by the [employer] and the scans are performed using protocols designed to limit radiation exposure to as low as reasonably achievable to attain images of sufficient resolution adequate for diagnostic evaluation.
[2020-03-19] MEDS ORDERED: Cefepime HCl 1 GM in D5W 55 ML IVPB ONE (17:30)
[2020-03-19] MEDS ORDERED: Omnipaque-300 100ml vial INJ PRN (17:30)
--- NOTE | 2020-03-19 17:57 | Emergency Room Report ---
History of Present Illness General Chief Complaint: Generalized Weakness Source: Medical Record, EMS Present Illness HPI 84-year-old female with a history of dementia, rheumatoid arthritis, seizure disorder on Keppra here with generalized weakness, lethargy, failure to thrive. Patient is normally obtunded appearing at her baseline but according to her patient has been far more lethargic lately than usual. She has had a generally decreased appetite and has been difficult to arouse at times. Patient has a history of recurrent urinary tract infections. Patient is unable to answer questions or participate in review of systems secondary to her dementia and lethargy. Allergies: Coded Allergies: CODEINE (Verified Allergy, Unknown, 11/03/17) SULFA (SULFONAMIDE ANTIBIOTICS) (Verified Allergy, Unknown, 11/03/17) SULFAMETHOXAZOLE (Verified Allergy, Unknown, 11/03/17) TRIMETHOPRIM (Verified Allergy, Unknown, 11/03/17) COVID-19 Screening Contact w/high risk pt: No Experienced COVID-19 symptoms?: No COVID-19 Testing performed SHERIFFS DETECTIVE: No COVID-19 Screening: Negative COVID-19 COVID-19 Testing Source: pt was positive about 3 months ago, negative two weeks ago Nursing Documentation-PM Past Medical History: No History, Except For Hx Cardiac Problems: No - DVT on LE Hx Hypertension: No - Rheumatoid arthritis Hx Pacemaker: No Hx Asthma: No Hx COPD: No Hx Diabetes: No Hx Cancer: No Hx Gastrointestinal Problems: No Hx Dialysis: No Hx Neurological Problems: Yes Hx Cerebrovascular Accident: No Hx Alzheimer's Disease: Yes Hx Seizures: Yes - years ago Review of Systems All Other Systems: negative except mentioned in HPI Physical Exam Vital Signs Date Time Temp Pulse Resp B/P (MAP) Pulse Ox O2 Delivery O2 Flow Rate FiO2 03/19/20 15:53 99.7 75 20 147/89 (108) 94 Room Air 03/19/20 16:10 99 Sp02 EP Interpretation: reviewed, normal General Appearance: no apparent distress, other - Appears lethargic, cachectic Head: normocephalic, atraumatic Eyes: bilateral eye normal inspection, bilateral eye PERRL ENT: hearing grossly normal, normal pharynx, no angioedema, normal voice Neck: full range of motion, supple/symm/no masses Respiratory: chest non-tender, lungs clear, normal breath sounds, speaking full sentences Cardiovascular #1: regular rate, rhythm, no edema Cardiovascular #2: 2+ carotid (R), 2+ carotid (L), 2+ radial (R), 2+ radial (L), 2+ dorsalis pedis (R), 2+ dorsalis pedis (L) Gastrointestinal: normal bowel sounds, non tender, soft, non-distended, no guarding, no rebound Rectal: deferred Genitourinary: normal inspection, no CVA tenderness Musculoskeletal: back normal, normal range of motion, calf tenderness, gait/station normal, non-tender Neurologic: other - Cachectic, lethargic, appears chronically ill. Unable to fully participate in neurologic exam however moves all extremities spontaneously Psychiatric: other - Lethargic Lymphatic: no adenopathy Medical Decision Making Diagnostic Impression: Primary Impression: UTI (urinary tract infection) Additional Impressions: Volume depletion Rheumatoid arthritis Dehydration Failure to thrive ER Course Procedure: CT Head no Contrast Indications: Altered mental status Technique: Spiral acquisitions obtained through the brain. Angled axial and coronal 5 x 5 mm slices were reconstructed. Total dose length product 1018 mGycm. CTDI vol(s) 53 mGy. Dose reduction achieved using automated exposure control Comparison: No comparison CT scans. Reference made to MRI dated 10/22/2012 Findings: There is marked age-related enlargement of the ventricles and extra axial CSF spaces. Subacute or old lacunar infarct is seen in the right tatum right aorta, extending into the basal ganglia. This is not evident on the 2013 exam. Old deep white matter infarct is seen in the left tatum radiata, small. There is periventricular deep white matter low-attenuation, consistent with chronic microvascular ischemic change. No acute intracranial hemorrhage or edema. No mass effect nor midline shift. The mastoids are clear. The calvarium is intact. Impression: Subacute versus old right tatum radiata and basal ganglia lacunar infarct. If clinically indicated, MRI may be useful to clarify age Other chronic and age-related changes, as described Negative for acute intracranial bleed or mass effect Procedure: XRAY Chest 1v Indication: Chest pain Technique: One view of the chest Comparison: none Findings: No acute infiltrates, effusions, or congestion. Tortuous calcified aorta. Normal heart size. Upper mediastinum unremarkable. No significant change Impression: No acute process. EKG: NSR, no ischemia, intervals WNL. No ectopy Rhythm strip: patient monitored for arrhythmias - no malignant dysrhythmias, runs of PVCs, nor pauses noted Laboratory Tests Test 03/19/20 16:00 03/19/20 16:52 White Blood Count 10.7 K/UL (4.8-10.8) Red Blood Count 4.35 M/UL (4.20-5.40) Hemoglobin 13.9 G/DL (12.0-16.0) Hematocrit 43.8 % (37.0-47.0) Mean Corpuscular Volume 101 FL (80-99) H Mean Corpuscular Hemoglobin 32.0 PG (27.0-31.0) H Mean Corpuscular Hemoglobin Concent 31.7 G/DL (32.0-36.0) L Red Cell Distribution Width 14.5 % (11.6-14.8) Platelet Count 248 K/UL (150-450) Mean Platelet Volume 6.5 FL (6.5-10.1) Neutrophils (%) (Auto) 71.1 % (45.0-75.0) Lymphocytes (%) (Auto) 19.6 % (20.0-45.0) L Monocytes (%) (Auto) 8.1 % (1.0-10.0) Eosinophils (%) (Auto) 0.5 % (0.0-3.0) Basophils (%) (Auto) 0.8 % (0.0-2.0) Sodium Level 155 MMOL/L (136-145) H Potassium Level 3.7 MMOL/L (3.5-5.1) Chloride Level 118 MMOL/L (98-107) H Carbon Dioxide Level 26 MMOL/L (21-32) Anion Gap 11 mmol/L (5-15) Blood Urea Nitrogen 24 mg/dL (7-18) H Creatinine 1.0 MG/DL (0.55-1.30) Estimated Glomerular Filtration Rate 53.1 mL/min (>60) Glucose Level 110 MG/DL (74-106) H Lactic Acid Level 1.00 mmol/L (0.4-2.0) Calcium Level 9.3 MG/DL (8.5-10.1) Total Bilirubin 0.6 MG/DL (0.2-1.0) Aspartate Amino Transferase (AST) 19 U/L (15-37) Alanine Aminotransferase (ALT) 18 U/L (12-78) Alkaline Phosphatase 81 U/L (46-116) Creatine Kinase MB 0.6 NG/ML (0.0-3.6) Troponin I 0.004 ng/mL (0.000-0.056) Total Protein 8.2 G/DL (6.4-8.2) Albumin 3.6 G/DL (3.4-5.0) Globulin 4.6 g/dL Albumin/Globulin Ratio 0.8 (1.0-2.7) L Urine Color Pale yellow Urine Appearance Slightly cloudy Urine pH 6.5 (4.5-8.0) Urine Specific [place] 1.010 (1.005-1.035) Urine Protein 3+ (NEGATIVE) H Urine Glucose (UA) Negative (NEGATIVE) Urine Ketones 1+ (NEGATIVE) H Urine Blood 3+ (NEGATIVE) H Urine Nitrite Negative (NEGATIVE) Urine Bilirubin Negative (NEGATIVE) Urine Urobilinogen 1 MG/DL (0.0-1.0) H Urine Leukocyte Esterase 2+ (NEGATIVE) H Urine RBC 2-4 /HPF (0 - 2) H Urine WBC 40-60 /HPF (0 - 2) H Urine Squamous Epithelial Cells Occasional /LPF Urine Bacteria Few /HPF (NONE) 84-year-old female with history of dementia and seizure disorder on Keppra here with lethargy. Patient was hemodynamically stable in the emergency department. She appeared chronically ill and cachectic but was moving all extremities spontaneously and non-purposefully. Labs show evidence of severe dehydration with elevated sodium and chloride and BUN. Patient had urinary tract infection. Started on cefepime. Blood cultures and urine cultures currently pending. No evidence of sepsis .patient mated in stable condition. Last Vital Signs Date Time Temp Pulse Resp B/P (MAP) Pulse Ox O2 Delivery O2 Flow Rate FiO2 03/19/20 16:10 99.7 79 16 141/84 99 Room Air 03/19/20 16:10 99 Referrals: Kolby Salazar MD (PCP) Gerry Rodriguez M.D. Mar 19, 2020 17:57
[2020-03-19 18:09] VITALS: BP 143/83
--- NOTE | 2020-03-19 18:31 | Diagnostic Imaging Report ---
EXAM: CT Abdomen and Pelvis With Intravenous Contrast CLINICAL HISTORY: ABD PAIN TECHNIQUE: Axial computed tomography images of the abdomen and pelvis with intravenous contrast. CTDI is 5.90 mGy and DLP is 315.50 mGy-cm. One or more of the following dose reduction techniques were used: automated exposure control, adjustment of the mA and/or kV according to patient size, use of iterative reconstruction technique. COMPARISON: No relevant prior studies available. FINDINGS: Lung bases: Scarring/atelectasis at the right lung base. ABDOMEN: Liver: Unremarkable. Gallbladder and bile ducts: Unremarkable. Pancreas: Unremarkable. Spleen: Unremarkable. Adrenals: Unremarkable. Kidneys and ureters: Unremarkable. No obstructing stones. No hydronephrosis. Stomach and bowel: No inflammatory changes along the GI tract. No obstruction. PELVIS: Appendix: No findings to suggest acute appendicitis. Bladder: Unremarkable. Reproductive: Unremarkable as visualized. ABDOMEN and PELVIS: Intraperitoneal space: Cystic lesion within the pelvis measuring 4.9 x 4.0 cm. No free air. No significant fluid collection. Bones/joints: Levoscoliosis. Vertebral augmentation at L1. Soft tissues: Unremarkable. Vasculature: Aortobiiliac atherosclerotic calcifications. Lymph nodes: Unremarkable. IMPRESSION: 1. No acute abnormality. 2. Cystic lesion within the pelvis measuring 4.9 x 4.0 cm. No suspicious features by CT. Consider nonemergent pelvic ultrasound for further characterization.
[2020-03-19 19:15] VITALS: BP 140/70
[2020-03-19] MEDS ORDERED: LORazepam Inj 2mg/ml 1ml IV PRN (23:00)
[2020-03-19] MEDS ORDERED: D5 1/2NS w/KCl 40meq 1000ml 1,000 ML IV SCH (23:00)
[2020-03-20] VITALS: BP 129/76
--- NOTE | 2020-03-20 03:08 | History & Physical ---
History and Physical History & Physicial Date of Admission: March 19, 2020. Patient examined in Emergency Department, March 19, 2020, at approximately 18:00. Patient Identification: Ms. Snider is an 84-year-old woman with multiple chronic medical problems resulting in severe functional impairments. Over the last 6 months her functional decline has somewhat accelerated, marked by recurrent episodes of apparent urinary tract infection. Several months ago she developed lethargy and weakness and was treated with intravenous hydration at home for several days with resulting improvement. Last week she once again developed increased weakness, lethargy, and diminished oral intake. Laboratory data was fairly unremarkable. Urinalysis showed 10-20 white cells but no growth on the culture. Several weeks before she had been treated for an E. coli urinary tract infection with Keflex. Recommendation was made to Mr. Snider to have his brought to the hospital for further evaluation. However because of possible exposure to COVID-19, Mr. Snider declined, requesting continued evaluation and treatment at home. When the laboratory work returned without significant abnormalities, it was hypothesized that perhaps Ms. Snider could no longer tolerate some of her psychoactive medication dosing. Mr. Snider was instructed to withhold a dose of Keppra last evening and then a dose of Lexapro this morning. He reported that Ms. Snider was somewhat more alert but continued quite weak with decreased muscle tone and inability to assist with transfers. At that point he requested emergency department evaluation and arranged ambulance transport. History of Present Illness: In the emergency department, Ms. Snider was initially evaluated by Dr. Rodriguez. Her work-up included findings of lethargy and unresponsiveness, but no overt physical distress. The temperature was 99.7, white count was 10.7, sodium 155, chloride 118, BUN 24, creatinine 1.0, lactate 1.0, with 40-60 WBCs in the urine. A CT scan of the brain revealed marked enlargement of the ventricles and extra-axial CSF spaces suggestive of age-related changes and not obstructive pathology. 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 Chest x-ray revealed no evidence of an acute process. Given these findings it was elected to admit Mrs. Snider to the hospital with initial treatment given in the emergency room including intravenous fluid bolus and a dose of cefepime intravenously. The patient was subsequently seen and examined in the emergency department prior to her transfer upstairs. Compared to her baseline she was unresponsive with her eyes closed most of the time. There was no clear response to verbal stimuli and no definite directed gaze elicited. With some repetition the patient did appear to exhibit blink to threat from both lateral directions. It was notable that the patient's general tone was increased. A CT scan of the abdomen pelvis was added because the patient has had multiple urinary tract infections over the last 6 months, as well as apparently sterile pyuria on the prior laboratory data obtained at home. Past Medical History: 1. Episode in May 2019 with Enterococcus faecalis urinary tract infection associated with encephalopathy, fever, volume depletion, and tachycardia. 2. Episode several months ago of lethargy, cough, fever, with positive SARS-CoV-2 antibody, but no positive PCR results. Respiratory symptoms resolved with negative PCR studies several weeks ago, obtained because of more recent decline. 3. Recurrent low-grade fevers over last 6 months, initially felt to be associated with possible COVID-19, but persisting despite clinical resolution of other symptoms. Work-up at home has included negative blood culture results, negative TB Gold test. Ultimately felt to be most likely caused by active rheumatoid arthritis for which the patient is receiving Simponi and methotrexate. 4. Adult failure to thrive prominent over the last 6 months. 5. Prior episode of sepsis in 2019 with E coli bacteremia due to urinary tract infection, with history of multiple prior urinary tract infections with associated encephalopathy and systemic symptoms. 6. Transient tachyarrythmia due to sepsis in the past, including probable episode of rapid atrial fibrillation. 7. Advanced cognitive dysfunction primarily due to Alzheimer disease. Consider contributing components of small vessel cerebrovascular disease and B12 deficiency. 8. Multifactorial gait disorder. 9. History of fall with rib fractures. 10. History of rheumatoid arthritis, on Simponi and methotrexate. 11. Hypothyroidism. 12. Hyperlipidemia. 13. Seizure disorder, controlled on Keppra. 14. Osteopenia. 15. History of migraines. 16. History of depression with anxiety and paranoia. 17. 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 18. 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 19. Mitral valve prolapse. 20. Status post cataract surgery, left eye. 21. Status post appendectomy. 22. Osteoporosis, treated with Denosumab. Medications: 1. Vitamin D3 1000 units qd. 2. Cyanocobalamin 1000 mcg IM monthly. 3. Prolia every 6 months, last administered approximately 12 months ago 4. Lexapro 20 mg daily. 5. Folate 1 mg daily. 7. Simponi monthly per Dr. Nava. 7. Methotrexate weekly per Dr. Nava. 8. Levothyroxine 50 mcg 6 times a week. 9. Lovastatin 40 mg nightly. 10. Belsomra 10 mg nightly. 11. Warfarin 3 mg daily. 12. Keppra 500 mg twice daily. 13. Cranberry pills. 14. Atenolol 12.5 mg daily. Allergies: Codeine, Sulfa drugs including Trimethoprim/sulfa. Social History: The patient lives at home with her and there is a full-time caregiver who assists in care. She is functionally entirely dependent at this point requiring full-time care with all activities in daily living. Review of Systems: The patient is unable to respond to any questions. Does have advanced dementia. Her clinical changes are essentially as described above and reported by the and caregiver. Physical Examination: Blood pressure 143/83, heart rate 83 and regular, respiratory rate 18 unlabored, temperature 99.7 axillary, oxygen saturation 100% on room air. General: Patient is lethargic with eyes closed most of the time, does not directly respond to verbal stimuli or even firm tactile stimuli. Does not exhibit directed gaze toward the examiner on verbal stimulation. After multiple attempts bilateral blink to threat is elicited. Head/neck: Normocephalic, atraumatic. The right cornea appears slightly cloudy compared to the left, raising the possibility of cataract progression in that eye. There is no evidence of injection or conjunctival irritation. Mucosa is somewhat dry. The neck range of motion appears to be relatively normal. Chest: Distant breath sounds with no adventitious sounds. Cardiovascular: Regular rhythm. Abdomen: Normal bowel sounds. The abdomen is soft and nontender without overt masses or organomegaly. There is no overt suprapubic tenderness or dullness appreciated. Extremities: No evidence of acute inflammation or erythema. No significant edema or tenderness appreciated. Neurologic: Patient exhibits increased tone throughout with resistance to passive range of motion. There is no evidence of focality otherwise although examination is limited by the patient's mental status. As noted above patient has very limited responses. Nursing assessment of the skin documented with photographs reveals evidence of a bluish discoloration on the right heel, possibly deep tissue injury versus bruising associated with anticoagulation. The left heel reveals an area of erythema suggestive of possible deep tissue injury. Laboratory Data: WBC 10.7, hematocrit 43.8%, MCV 101, platelet count 248. Normal differential. Sodium 155, potassium 3.7, chloride 118, carbon dioxide 26, BUN 24, creatinine 1 .0, glucose 110, calcium 9.3, total bilirubin 0.6, AST 19, ALT 18, alkaline phosphatase 81, CK-MB 0.6, total protein 8.2, albumin 3.6, troponin 0 0.004, lactate 1.00. Urinalysis: pH 6.5, slightly cloudy, specific gravity 1.010, 3+ protein, 1+ ketone, 3+ blood, negative nitrite, urobilinogen 1, leukocyte esterase 2+, RBCs 2-4, WBCs 40-60, few bacteria. Chest x-ray: no acute process. CT head without contrast: Subacute versus old right tatum radiata and basal ganglia lacunar infarct. Other chronic and age-related changes. CT abdomen and pelvis with contrast: Cystic lesion in the pelvis 4.9 x 4.0 cm no suspicious features by CT. No acute abnormality. Impression/Plan: 1. Ms. Snider presents with lethargy, increased peripheral tone, and low- grade fever. Because of the pyuria on initial urinalysis, a recurrent urinary tract infection is most likely etiology. The patient was given a single dose of cefepime empirically in the emergency department. However given her lack of septic presentation and the fact that she has had sterile pyuria at home she will be covered empirically with ceftriaxone until culture results are available. A rapid COVID test in the emergency department was negative as well. A noninfectious cause of the patient's low-grade fever such as her rheumatoid arthritis remains a significant possibility given her prior history and ev aluations. A pelvic ultrasound will be ordered for the patient to further evaluate the apparent cystic lesion. 2. The patient's altered mental status is likely due to her apparent infection. However, again, given her recent history, encephalopathy from another etiology is a consideration. The patient's evidence of lacunar infarct possibly subacute raises the possibility of a cerebrovascular accident is contributing to her current presentation. An MRI of the brain will be obtained in order to better elucidate the situation primarily for prognostic purposes since the patient is not a candidate for aggressive intervention. Another possible contributing etiology is an adverse medication effect. It is possible the patient's psychoactive tolerance is not as robust as before. Because of her depressed mental status at this time, she will be kept n.p.o. which in affect will also allow us to observe response to decrease psychoactive administration. Because she is demonstrated propensity to seizure, Ativan as needed will be prescribed to cover for a possible epileptic event. Further evaluation will be directed by the patient's clinical course. 3. The patient's significant hypernatremia may be metabolically contributing to her abnormal mental status as well. She was hydrated with a liter of fluid in the emergency department. Intravenous hydration will be continued with some potassium supplementation in normal saline at 100 an hour, with the goal of gradual correction of the hypernatremia. 4. Skin care protocol has been initiated by nursing with attention to her heel lesions. 5. Given the patient's extreme frailty and total dependence on one-to-one care, arrangements will be attempted to allow the patient's private caregivers to be present to assist especially with oral intake. 6. Additional interventions will be considered depending on the patient's response to therapy and further laboratory data. Kolby Salazar MD Mar 20, 2020 03:08
[2020-03-20 04:00] VITALS: BP 125/60
[2020-03-20] MEDS ORDERED: D5 1/2NS w/KCl 20mEq 1,000 ML IV SCH (05:30)
[2020-03-20] MEDS: D5 1/2NS w/KCl 20mEq 1,000 ML IV SCH ×3 (06:26→17:44)
[2020-03-20 06:44] LABS: ANION GAP 10 mmol/L (5-15); BLOOD UREA NITROGEN 21 mg/dL (7-18); CALCIUM 8.5 MG/DL (8.5-10.1); CARBON DIOXIDE 26 MMOL/L (21-32); CHLORIDE 118 MMOL/L (98-107); CREATININE 0.9 MG/DL (0.55-1.30); POTASSIUM 3.5 MMOL/L (3.5-5.1); SODIUM 154 MMOL/L (136-145)
[2020-03-20 06:51] LABS: BASOPHILS % (AUTO) 0.7 % (0.0-2.0); EOSINOPHILS % (AUTO) 2.5 % (0.0-3.0); LYMPHOCYTES % (AUTO) 20.2 % (20.0-45.0); MEAN CORPUSCULAR VOLUME 96 FL (80-99); MONOCYTES % (AUTO) 7.6 % (1.0-10.0); PLATELET COUNT 212 K/UL (150-450); RED BLOOD COUNT 4.06 M/UL (4.20-5.40); RED CELL DISTRIBUTION WIDTH 13.9 % (11.6-14.8); WHITE BLOOD COUNT 8.6 K/UL (4.8-10.8)
[2020-03-20 06:58] LABS: INR 1.6 (0.9-1.1)
[2020-03-20 08:00] VITALS: BP 120/72
[2020-03-20 12:00] VITALS: BP 134/79
[2020-03-20 16:00] VITALS: BP 132/81
[2020-03-20 20:00] VITALS: BP 144/77
--- NOTE | 2020-03-20 22:48 | Geriatric Progress Note ---
Assessment/Plan Problems: (1) Hypernatremia (2) Encephalopathy acute (3) Advanced dementia (4) History of pulmonary embolism (5) B12 deficiency (6) Rheumatoid arthritis (7) UTI (urinary tract infection) (8) FTT (failure to thrive) in adult (9) Seizure disorder (10) Hypothyroidism (11) Hyperlipidemia (12) Osteoporosis (13) Gait instability Assessment/Plan Slight improvement in apparent mental status. Continue IVF to gradually correct hypernatremia. May be sufficiently alert to initiate some p.o. intake, but will not order until caregivers are available to assist with feeding, which should be in place later today or tomorrow. Continue to hold p.o. medications until oral feeding begins. Addendum: Caregiver arrived, confirms patient more alert that at admission. Discussed with: hospital staff Subjective Interval Events Patient more alert, eyes open at times, no vocalizations. Apparently, private caregiver arrangements not completed as yet. Staff reports no acute changes. No responses elicited, but gaze more directed. No overt distress. Laboratories stable with persistent hypernatremia. Magnesium somewhat elevated. Fluids changed to D51/2NS with KCl. Subjective No responses due to mental status. Geriatric Geriatric Last 24 Hour Vital Signs Date Time Temp Pulse Resp B/P (MAP) Pulse Ox O2 Delivery O2 Flow Rate FiO2 03/20/20 21:00 Room Air 03/20/20 20:00 98.2 76 18 144/77 (99) 94 03/20/20 16:00 98.3 96 20 132/81 (98) 98 03/20/20 12:00 98.1 19 134/79 (97) 98 03/20/20 09:00 Room Air 03/20/20 08:00 98.0 90 20 120/72 (88) 96 03/20/20 04:00 98.6 70 18 125/60 (81) 96 03/20/20 00:18 Room Air 03/20/20 00:00 Room Air 03/20/20 00:00 98.7 67 18 129/76 (93) 96 03/19/20 23:53 Room Air Intake and Output 03/19/20 03/20/20 19:00 07:00 Intake Total 400 ml Balance 400 ml Intake IV Total 400 ml # Voids 1 5 Laboratory Tests Test 03/20/20 05:45 White Blood Count 8.6 K/UL (4.8-10.8) Red Blood Count 4.06 M/UL (4.20-5.40) L Hemoglobin 13.0 G/DL (12.0-16.0) Hematocrit 39.0 % (37.0-47.0) Mean Corpuscular Volume 96 FL (80-99) Mean Corpuscular Hemoglobin 31.9 PG (27.0-31.0) H Mean Corpuscular Hemoglobin Concent 33.2 G/DL (32.0-36.0) Red Cell Distribution Width 13.9 % (11.6-14.8) Platelet Count 212 K/UL (150-450) Mean Platelet Volume 6.3 FL (6.5-10.1) L Neutrophils (%) (Auto) 69.0 % (45.0-75.0) Lymphocytes (%) (Auto) 20.2 % (20.0-45.0) Monocytes (%) (Auto) 7.6 % (1.0-10.0) Eosinophils (%) (Auto) 2.5 % (0.0-3.0) Basophils (%) (Auto) 0.7 % (0.0-2.0) Prothrombin Time 17.4 SEC (9.30-11.50) H Prothromb Time International Ratio 1.6 (0.9-1.1) H Sodium Level 154 MMOL/L (136-145) H Potassium Level 3.5 MMOL/L (3.5-5.1) Chloride Level 118 MMOL/L (98-107) H Carbon Dioxide Level 26 MMOL/L (21-32) Anion Gap 10 mmol/L (5-15) Blood Urea Nitrogen 21 mg/dL (7-18) H Creatinine 0.9 MG/DL (0.55-1.30) Estimat Glomerular Filtration Rate > 60 mL/min (>60) Glucose Level 118 MG/DL (74-106) H Calcium Level 8.5 MG/DL (8.5-10.1) Magnesium Level 2.6 MG/DL (1.8-2.4) H Current Medications Medications (Trade) Dose Ordered Sig/Tres Route PRN Reason Start Time Stop Time Status Last Admin Dose Admin Dextrose/ Electrolytes 1,000 ml @ 100 mls/hr Q10H IV 03/20/20 08:00 04/19/20 07:59 03/20/20 17:44 Iohexol (OMNIPAQUE-300 100ml) 100 ml NOW PRN INJ Radiology Procedure 03/19/20 17:30 03/21/20 17:29 Lorazepam (Ativan 2mg/ml 1ml) 2 mg EVERY 2 HOURS PRN IV For Seizures 03/19/20 23:00 03/26/20 22:59 Height (Feet): 5 Height (Inches): 4.00 Weight (Pounds): 123 General Appearance: no apparent distress, lethargic - but more alert. Head: normocephalic, atraumatic ENT: dry mucus membranes Neck: full range of motion, no mass Respiratory: lungs clear Cardiovascular: regular rate, rhythm Gastrointestinal: normal bowel sounds, non tender, soft, no mass, no organo megaly Musculoskeletal: no calf tenderness Edema: no edema noted Generalized Neurologic: other - Increased tone persists. Skin: wounds - Dressed. Kolby Salazar MD Mar 20, 2020 22:48
[2020-03-21] VITALS: BP 155/93
[2020-03-21] MEDS: cefTRIAXone 1 GM in D5W 55 ML IVPB SCH (03:25)
[2020-03-21 04:00] VITALS: BP 129/72
[2020-03-21 05:11] LABS: BASOPHILS % (AUTO) 0.9 % (0.0-2.0); HEMATOCRIT 39.1 % (37.0-47.0); HEMOGLOBIN 12.9 G/DL (12.0-16.0); LYMPHOCYTES % (AUTO) 22.1 % (20.0-45.0); MEAN CORPUSCULAR VOLUME 95 FL (80-99); MONOCYTES % (AUTO) 7.5 % (1.0-10.0); NEUTROPHILS % (AUTO) 65.5 % (45.0-75.0); PLATELET COUNT 202 K/UL (150-450); RED CELL DISTRIBUTION WIDTH 13.7 % (11.6-14.8); WHITE BLOOD COUNT 8.6 K/UL (4.8-10.8)
[2020-03-21 05:47] LABS: ANION GAP 5 mmol/L (5-15); BLOOD UREA NITROGEN 14 mg/dL (7-18); CALCIUM 8.2 MG/DL (8.5-10.1); CARBON DIOXIDE 27 MMOL/L (21-32); CHLORIDE 117 MMOL/L (98-107); CREATININE 0.9 MG/DL (0.55-1.30); POTASSIUM 3.8 MMOL/L (3.5-5.1); SODIUM 149 MMOL/L (136-145)
[2020-03-21] MEDS: Atenolol 25mg tab ORAL SCH (08:56)
[2020-03-21 09:00] VITALS: BP 145/76
--- NOTE | 2020-03-21 09:37 | Diagnostic Imaging Report ---
EXAM: US Pelvis Transabdominal, Complete CLINICAL HISTORY: CYST TECHNIQUE: Real-time complete transabdominal pelvic ultrasound with image documentation. COMPARISON: CT abdomen and pelvis 03/19/20 FINDINGS: Uterus/cervix: Uterus not seen. Right ovary: There is 5.0 x 3.96 x 5.42 cm anechoic simple appearing cyst in the right adnexal region. Right ovary not seen. Left ovary: Left ovary not visualized. Free fluid: No free fluid. Bladder: Unremarkable as visualized. Wall is normal thickness for degree of distention. IMPRESSION: 1. There is 5.0 x 3.96 x 5.42 cm anechoic simple appearing cyst in the right adnexal region. This cyst is almost certainly benign. Yearly pelvic ultrasound follow-up recommended. 2. Uterus and bilateral ovaries not seen due to atrophy and bowel gas.
[2020-03-21 10:43] LABS: INR 1.7 (0.9-1.1)
[2020-03-21 12:00] VITALS: BP 131/65
[2020-03-21] MEDS: D5 1/2NS w/KCl 20mEq 1,000 ML IV SCH (14:14)
[2020-03-21 16:00] VITALS: BP 151/92
[2020-03-21] MEDS: Warfarin Sodium 1mg ORAL SCH (16:43)
[2020-03-21 20:00] VITALS: BP 138/83
--- NOTE | 2020-03-21 20:58 | Geriatric Progress Note ---
Assessment/Plan Problems: (1) Rheumatoid arthritis (2) Volume depletion (3) UTI (urinary tract infection) (4) Dehydration (5) Osteoporosis (6) Hyperlipidemia (7) Hypernatremia (8) Hypothyroidism (9) Seizure disorder (10) Encephalopathy acute (11) Gait instability (12) Advanced dementia (13) FTT (failure to thrive) in adult (14) History of pulmonary embolism (15) B12 deficiency Assessment/Plan Slow improvement. Tolerating puree, thickened liquid diet. Resumed medications, including reduced Keppra, but not resuming psychoactives at this point. Unclear if patient with definite UTI given NG on culture so far. Consider d/c ceftriaxone. Hypernatremia improving, continue fluids but decrease rate to 75/hr. Persistent rigidity, ? due to tatum radiata disease, ? serotonergic syndrome. Monitor for now. Follow INR, now that Coumadin restarted. Attempt to slowly mobilize if possible. Discussed with: hospital staff, other - private caregiver. Subjective Interval Events Per caregiver eating much better. Attempted to speak. Staff notes B heel injuries. Labs slowly improving. Urine C&S NGTD. Oral medications initiated, including decreased dose of Keppra. Other psychoactives being held. Subjective Unable to respond. Geriatric Geriatric Last 24 Hour Vital Signs Date Time Temp Pulse Resp B/P (MAP) Pulse Ox O2 Delivery O2 Flow Rate FiO2 03/21/20 16:00 97.6 84 18 151/92 (111) 97 03/21/20 12:09 Room Air 03/21/20 12:00 96.8 78 20 131/65 (87) 97 03/21/20 09:00 Room Air 03/21/20 09:00 97.5 76 18 145/76 (99) 94 03/21/20 08:56 74 151/76 03/21/20 04:00 96.8 74 18 129/72 (91) 94 03/21/20 00:00 97.7 74 18 155/93 (113) 95 03/20/20 21:00 Room Air Intake and Output 03/20/20 03/21/20 19:00 07:00 Intake Total 100 ml Balance 100 ml IV Total 100 ml # Voids 2 1 Laboratory Tests Test 03/21/20 04:50 03/21/20 10:10 White Blood Count 8.6 K/UL (4.8-10.8) Red Blood Count 4.10 M/UL (4.20-5.40) L Hemoglobin 12.9 G/DL (12.0-16.0) Hematocrit 39.1 % (37.0-47.0) Mean Corpuscular Volume 95 FL (80-99) Mean Corpuscular Hemoglobin 31.6 PG (27.0-31.0) H Mean Corpuscular Hemoglobin Concent 33.1 G/DL (32.0-36.0) Red Cell Distribution Width 13.7 % (11.6-14.8) Platelet Count 202 K/UL (150-450) Mean Platelet Volume 6.7 FL (6.5-10.1) Neutrophils (%) (Auto) 65.5 % (45.0-75.0) Lymphocytes (%) (Auto) 22.1 % (20.0-45.0) Monocytes (%) (Auto) 7.5 % (1.0-10.0) Eosinophils (%) (Auto) 4.0 % (0.0-3.0) H Basophils (%) (Auto) 0.9 % (0.0-2.0) Sodium Level 149 MMOL/L (136-145) H Potassium Level 3.8 MMOL/L (3.5-5.1) Chloride Level 117 MMOL/L (98-107) H Carbon Dioxide Level 27 MMOL/L (21-32) Anion Gap 5 mmol/L (5-15) Blood Urea Nitrogen 14 mg/dL (7-18) Creatinine 0.9 MG/DL (0.55-1.30) Estimat Glomerular Filtration Rate > 60 mL/min (>60) Glucose Level 115 MG/DL (74-106) H Calcium Level 8.2 MG/DL (8.5-10.1) L Prothrombin Time 18.0 SEC (9.30-11.50) H Prothromb Time International Ratio 1.7 (0.9-1.1) H Current Medications Medications (Trade) Dose Ordered Sig/Tres Route PRN Reason Start Time Stop Time Status Last Admin Dose Admin Atenolol (Tenormin) 12.5 mg DAILY ORAL 03/21/20 09:00 04/20/20 08:59 03/21/20 08:56 Ceftriaxone Sodium 1 gm/ Dextrose 55 ml @ 110 mls/hr Q24H IVPB 03/21/20 03:00 03/28/20 02:59 03/21/20 03:25 Dextrose/ Electrolytes 1,000 ml @ 75 mls/hr [id number] IV 03/20/20 08:00 04/19/20 07:59 03/21/20 14:14 Levetiracetam (Keppra) 250 mg EVERY 8 HOURS ORAL 03/21/20 06:00 04/20/20 05:59 03/21/20 14:14 Levothyroxine Sodium (Synthroid) 50 mcg DAILY@0630 ORAL 03/21/20 06:30 04/20/20 06:29 03/21/20 06:17 Lorazepam (Ativan 2mg/ml 1ml) 2 mg EVERY 2 HOURS PRN IV For Seizures 03/19/20 23:00 03/26/20 22:59 Warfarin Sodium (Warfarin Sod) 3 mg DAILY@17 ORAL 03/21/20 17:00 03/26/20 16:59 03/21/20 16:43 Height (Feet): 5 Height (Inches): 4.00 Weight (Pounds): 123 General Appearance: lethargic - more alert. Eyes: bilateral anicteric Neck: full range of motion, no mass Respiratory: lungs clear, decreased breath sounds Cardiovascular: regular rate, rhythm Gastrointestinal: normal bowel sounds, non tender, soft, no mass, no organomegaly Musculoskeletal: no calf tenderness Edema: no edema noted Generalized Neurologic: other - still with increased tone. Skin: wounds - dressed. Kolby Salazar MD Mar 21, 2020 20:58
[2020-03-22] VITALS: BP 136/99
[2020-03-22] MEDS: cefTRIAXone 1 GM in D5W 55 ML IVPB SCH (03:01)
[2020-03-22 04:00] VITALS: BP 138/91
[2020-03-22] MEDS: D5 1/2NS w/KCl 20mEq 1,000 ML IV SCH ×2 (05:27→21:39)
[2020-03-22 08:00] VITALS: BP 142/69
[2020-03-22 08:17] LABS: BASOPHILS % (AUTO) 0.4 % (0.0-2.0); EOSINOPHILS % (AUTO) 2.8 % (0.0-3.0); HEMATOCRIT 40.3 % (37.0-47.0); HEMOGLOBIN 13.5 G/DL (12.0-16.0); LYMPHOCYTES % (AUTO) 21.1 % (20.0-45.0); MEAN CORPUSCULAR VOLUME 94 FL (80-99); MONOCYTES % (AUTO) 5.5 % (1.0-10.0); NEUTROPHILS % (AUTO) 70.2 % (45.0-75.0); PLATELET COUNT 209 K/UL (150-450); RED BLOOD COUNT 4.27 M/UL (4.20-5.40); RED CELL DISTRIBUTION WIDTH 13.2 % (11.6-14.8); WHITE BLOOD COUNT 10.1 K/UL (4.8-10.8)
[2020-03-22 08:28] LABS: INR 1.6 (0.9-1.1)
[2020-03-22 08:34] LABS: ANION GAP 7 mmol/L (5-15); BLOOD UREA NITROGEN 8 mg/dL (7-18); CALCIUM 8.1 MG/DL (8.5-10.1); CARBON DIOXIDE 26 MMOL/L (21-32); CHLORIDE 110 MMOL/L (98-107); CREATININE 0.8 MG/DL (0.55-1.30); POTASSIUM 3.5 MMOL/L (3.5-5.1); SODIUM 142 MMOL/L (136-145)
[2020-03-22] MEDS: Atenolol 25mg tab ORAL SCH (09:01)
[2020-03-22 10:11] LABS: APPEARANCE,URINE CLEAR; BILIRUBIN, URINE NEGATIVE (NEGATIVE); COLOR,URINE PALE YELLOW; GLUCOSE, URINE (UA) NEGATIVE (NEGATIVE); KETONES,URINE NEGATIVE (NEGATIVE); LEUKOCYTE ESTERASE ,URINE NEGATIVE (NEGATIVE); NITRITE,URINE NEGATIVE (NEGATIVE); PH,URINE 7 (4.5-8.0); PROTEIN,URINE NEGATIVE (NEGATIVE); UROBILINOGEN,URINE NORMAL MG/DL (0.0-1.0)
[2020-03-22 12:00] VITALS: BP 136/73
--- NOTE | 2020-03-22 13:20 | Infectious Diseases Prog Note ---
Assessment/Plan Assessment/Plan Full consult to follow: A) 1) ? 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 Salazar 6) thank you Subjective Allergies: Coded Allergies: CODEINE (Verified Allergy, Unknown, 11/03/17) SULFA (SULFONAMIDE ANTIBIOTICS) (Verified Allergy, Unknown, 11/03/17) SULFAMETHOXAZOLE (Verified Allergy, Unknown, 11/03/17) TRIMETHOPRIM (Verified Allergy, Unknown, 11/03/17) Objective Last 24 Hour Vital Signs Date Time Temp Pulse Resp B/P (MAP) Pulse Ox O2 Delivery O2 Flow Rate FiO2 03/22/20 12:00 98.1 86 18 136/73 (94) 94 03/22/20 09:54 Room Air 03/22/20 09:01 93 138/91 03/22/20 09:00 Room Air 03/22/20 08:00 98.1 75 17 142/69 (93) 94 03/22/20 04:00 98.5 93 20 138/91 (107) 94 03/22/20 00:00 98.1 91 21 136/99 (111) 93 03/21/20 21:00 Room Air 03/21/20 20:00 98.9 87 20 138/83 (101) 98 03/21/20 16:00 97.6 84 18 151/92 (111) 97 Height (Feet): 5 Height (Inches): 4.00 Weight (Pounds): 123 Microbiology Date/Time Source Procedure Growth Status 03/19/20 20:00 Rectum - Final NO CARBAPENEM-RESISTANT ENTEROBACTERI... Complete 03/19/20 20:00 Rectum VRE Culture - Final Enterococcus Faecalis - Vre Complete 03/19/20 18:05 Nasopharynx SARS-CoV-2 RdRp Gene Assay - Final Complete 03/19/20 16:52 Urine,Clean Catch Urine Culture - Preliminary NO GROWTH AFTER 24 HOURS Resulted 03/19/20 16:15 Blood Blood Culture - Preliminary NO GROWTH AFTER 24 HOURS Resulted 03/19/20 16:00 Blood Blood Culture - Preliminary NO GROWTH AFTER 24 HOURS Resulted Laboratory Tests Test 03/22/20 06:42 03/22/20 08:00 White Blood Count 10.1 K/UL (4.8-10.8) Red Blood Count 4.27 M/UL (4.20-5.40) Hemoglobin 13.5 G/DL (12.0-16.0) Hematocrit 40.3 % (37.0-47.0) Mean Corpuscular Volume 94 FL (80-99) Mean Corpuscular Hemoglobin 31.7 PG (27.0-31.0) H Mean Corpuscular Hemoglobin Concent 33.6 G/DL (32.0-36.0) Red Cell Distribution Width 13.2 % (11.6-14.8) Platelet Count 209 K/UL (150-450) Mean Platelet Volume 6.9 FL (6.5-10.1) Neutrophils (%) (Auto) 70.2 % (45.0-75.0) Lymphocytes (%) (Auto) 21.1 % (20.0-45.0) Monocytes (%) (Auto) 5.5 % (1.0-10.0) Eosinophils (%) (Auto) 2.8 % (0.0-3.0) Basophils (%) (Auto) 0.4 % (0.0-2.0) Prothrombin Time 16.7 SEC (9.30-11.50) H Prothromb Time International Ratio 1.6 (0.9-1.1) H Sodium Level 142 MMOL/L (136-145) Potassium Level 3.5 MMOL/L (3.5-5.1) Chloride Level 110 MMOL/L (98-107) H Carbon Dioxide Level 26 MMOL/L (21-32) Anion Gap 7 mmol/L (5-15) Blood Urea Nitrogen 8 mg/dL (7-18) Creatinine 0.8 MG/DL (0.55-1.30) Estimat Glomerular Filtration Rate > 60 mL/min (>60) Glucose Level 91 MG/DL (74-106) Calcium Level 8.1 MG/DL (8.5-10.1) L Magnesium Level 2.2 MG/DL (1.8-2.4) Urine Color Pale yellow Urine Appearance Clear Urine pH 7 (4.5-8.0) Urine Specific [place] 1.005 (1.005-1.035) Urine Protein Negative (NEGATIVE) Urine Glucose (UA) Negative (NEGATIVE) Urine Ketones Negative (NEGATIVE) Urine Blood 1+ (NEGATIVE) H Urine Nitrite Negative (NEGATIVE) Urine Bilirubin Negative (NEGATIVE) Urine Urobilinogen Normal MG/DL (0.0-1.0) Urine Leukocyte Esterase Negative (NEGATIVE) Urine RBC 0-2 /HPF (0 - 2) Urine WBC 0 /HPF (0 - 2) Urine Squamous Epithelial Cells Occasional /LPF Urine Bacteria None /HPF (NONE) Current Medications Medications (Trade) Dose Ordered Sig/Tres Route PRN Reason Start Time Stop Time Status Last Admin Dose Admin Atenolol (Tenormin) 12.5 mg DAILY ORAL 03/21/20 09:00 04/20/20 08:59 03/22/20 09:01 Ceftriaxone Sodium 1 gm/ Dextrose 55 ml @ 110 mls/hr Q24H IVPB 03/21/20 03:00 03/28/20 02:59 03/22/20 03:01 Dextrose/ Electrolytes 1,000 ml @ 75 mls/hr [id number] IV 03/20/20 08:00 04/19/20 07:59 03/22/20 05:27 Levetiracetam (Keppra) 250 mg EVERY 8 HOURS ORAL 03/21/20 06:00 04/20/20 05:59 03/22/20 05:44 Levothyroxine Sodium (Synthroid) 50 mcg DAILY@0630 ORAL 03/21/20 06:30 04/20/20 06:29 03/22/20 05:44 Lorazepam (Ativan 2mg/ml 1ml) 2 mg EVERY 2 HOURS PRN IV For Seizures 03/19/20 23:00 03/26/20 22:59 Warfarin Sodium (Warfarin Sod) 3 mg DAILY@17 ORAL 03/21/20 17:00 03/26/20 16:59 03/21/20 16:43 Rachel Bethea MD Mar 22, 2020 13:20
[2020-03-22 16:00] VITALS: BP 125/65
[2020-03-22] MEDS: Warfarin Sodium 1mg ORAL SCH (17:28)
--- NOTE | 2020-03-22 19:45 | Geriatric Progress Note ---
Assessment/Plan Problems: (1) Rheumatoid arthritis (2) Volume depletion (3) UTI (urinary tract infection) (4) Dehydration (5) Osteoporosis (6) Hyperlipidemia (7) Hypernatremia (8) Hypothyroidism (9) Seizure disorder (10) Encephalopathy acute (11) Gait instability (12) Advanced dementia (13) FTT (failure to thrive) in adult (14) History of pulmonary embolism (15) B12 deficiency Assessment/Plan Normalizing electrolytes, continue present IVF. Intake marginal but improved. Possible UTI, complete ceftriaxone as per Dr. Bethea. VRE represents colonization, does not require treatment, but patient to be isolated in hospital. Reviewed earlier with nursing. Skin wounds about the same, monitor on therapy. P.T. as tolerated. Persistent rigidity - ? tatum radiata infarcts, ? serotonergic syndrome, ? metabolic encephalopathy. Dr. Suh will evaluate. INR about the same, but patient had missed 2-3 doses, will monitor on current dosing. Discussed with pharmacy. Recheck labs. If continued improvement, hope for d/c soon to home, although may wish to delay until high holidays are over. Discussed with: hospital staff, other - private caregiver. Subjective Interval Events Patient opens eyes briefly, does not respond to verbal stimuli. Gaze is directed. Caregiver reports patient ate slightly less than yesterday, but taking liquid supplements. Repeat photographs of heel lesions noted, no definite progression or open wound at this time. Blood, urine C&S NGTD. VRE screen +. Hypernatremia improved, otherwise labs about the same. Repeat urinalysis has cleared pyuria. P.T. eval noted. Because of recurrent pyuria with negative urine C&S, low grade fever, VRE colonization, I.D. consult requested from Dr. Bethea, who recommended another dose or two of ceftriaxone for possible UTI. Subjective Unable to respond. Geriatric Geriatric Last 24 Hour Vital Signs Date Time Temp Pulse Resp B/P (MAP) Pulse Ox O2 Delivery O2 Flow Rate FiO2 03/22/20 16:00 97.9 77 18 125/65 (85) 98 03/22/20 12:00 98.1 86 18 136/73 (94) 94 03/22/20 09:54 Room Air 03/22/20 09:01 93 138/91 03/22/20 09:00 Room Air 03/22/20 08:00 98.1 75 17 142/69 (93) 94 03/22/20 04:00 98.5 93 20 138/91 (107) 94 03/22/20 00:00 98.1 91 21 136/99 (111) 93 03/21/20 21:00 Room Air 03/21/20 20:00 98.9 87 20 138/83 (101) 98 Intake and Output 03/21/20 03/22/20 19:00 07:00 Intake Total 1315 ml 550 ml Output Total 700 ml Balance 1315 ml -150 ml Intake Oral 240 ml 100 ml IV Total 1075 ml 450 ml Output Urine Total 700 ml # Voids 1 3 Laboratory Tests Test 03/22/20 06:42 03/22/20 08:00 White Blood Count 10.1 K/UL (4.8-10.8) Red Blood Count 4.27 M/UL (4.20-5.40) Hemoglobin 13.5 G/DL (12.0-16.0) Hematocrit 40.3 % (37.0-47.0) Mean Corpuscular Volume 94 FL (80-99) Mean Corpuscular Hemoglobin 31.7 PG (27.0-31.0) H Mean Corpuscular Hemoglobin Concent 33.6 G/DL (32.0-36.0) Red Cell Distribution Width 13.2 % (11.6-14.8) Platelet Count 209 K/UL (150-450) Mean Platelet Volume 6.9 FL (6.5-10.1) Neutrophils (%) (Auto) 70.2 % (45.0-75.0) Lymphocytes (%) (Auto) 21.1 % (20.0-45.0) Monocytes (%) (Auto) 5.5 % (1.0-10.0) Eosinophils (%) (Auto) 2.8 % (0.0-3.0) Basophils (%) (Auto) 0.4 % (0.0-2.0) Prothrombin Time 16.7 SEC (9.30-11.50) H Prothromb Time International Ratio 1.6 (0.9-1.1) H Sodium Level 142 MMOL/L (136-145) Potassium Level 3.5 MMOL/L (3.5-5.1) Chloride Level 110 MMOL/L (98-107) H Carbon Dioxide Level 26 MMOL/L (21-32) Anion Gap 7 mmol/L (5-15) Blood Urea Nitrogen 8 mg/dL (7-18) Creatinine 0.8 MG/DL (0.55-1.30) Estimat Glomerular Filtration Rate > 60 mL/min (>60) Glucose Level 91 MG/DL (74-106) Calcium Level 8.1 MG/DL (8.5-10.1) L Magnesium Level 2.2 MG/DL (1.8-2.4) Urine Color Pale yellow Urine Appearance Clear Urine pH 7 (4.5-8.0) Urine Specific [place] 1.005 (1.005-1.035) Urine Protein Negative (NEGATIVE) Urine Glucose (UA) Negative (NEGATIVE) Urine Ketones Negative (NEGATIVE) Urine Blood 1+ (NEGATIVE) H Urine Nitrite Negative (NEGATIVE) Urine Bilirubin Negative (NEGATIVE) Urine Urobilinogen Normal MG/DL (0.0-1.0) Urine Leukocyte Esterase Negative (NEGATIVE) Urine RBC 0-2 /HPF (0 - 2) Urine WBC 0 /HPF (0 - 2) Urine Squamous Epithelial Cells Occasional /LPF Urine Bacteria None /HPF (NONE) Current Medications Medications (Trade) Dose Ordered Sig/Tres Route PRN Reason Start Time Stop Time Status Last Admin Dose Admin Atenolol (Tenormin) 12.5 mg DAILY ORAL 03/21/20 09:00 04/20/20 08:59 03/22/20 09:01 Ceftriaxone Sodium 1 gm/ Dextrose 55 ml @ 110 mls/hr Q24H IVPB 03/21/20 03:00 03/28/20 02:59 03/22/20 03:01 Dextrose/ Electrolytes 1,000 ml @ 75 mls/hr [id number] IV 03/20/20 08:00 04/19/20 07:59 03/22/20 05:27 Levetiracetam (Keppra) 250 mg EVERY 8 HOURS ORAL 03/21/20 06:00 04/20/20 05:59 03/22/20 13:44 Levothyroxine Sodium (Synthroid) 50 mcg DAILY@0630 ORAL 03/21/20 06:30 04/20/20 06:29 03/22/20 05:44 Lorazepam (Ativan 2mg/ml 1ml) 2 mg EVERY 2 HOURS PRN IV For Seizures 03/19/20 23:00 03/26/20 22:59 Warfarin Sodium (Warfarin Sod) 3 mg DAILY@17 ORAL 03/21/20 17:00 03/26/20 16:59 03/22/20 17:28 Height (Feet): 5 Height (Inches): 4.00 Weight (Pounds): 123 General Appearance: lethargic - but closer to baseline. Head: normocephalic, atraumatic Eyes: bilateral anicteric Neck: full range of motion, no mass Respiratory: lungs clear, decreased breath sounds Cardiovascular: regular rate, rhythm Gastrointestinal: normal bowel sounds, non tender, soft, no mass, no organomegaly Musculoskeletal: no calf tenderness Edema: no edema noted Generalized Neurologic: no new focality, other - Persistent increased tone except LUE slightly less rigid. Kolby Salazar MD Mar 22, 2020 19:45
[2020-03-22 20:00] VITALS: BP 144/80
[2020-03-23] VITALS: BP 132/80
[2020-03-23] MEDS: cefTRIAXone 1 GM in D5W 55 ML IVPB SCH (02:58)
[2020-03-23 04:00] VITALS: BP 136/77
[2020-03-23 06:41] LABS: INR 1.5 (0.9-1.1)
[2020-03-23 08:00] VITALS: BP 114/56
[2020-03-23] MEDS: Atenolol 25mg tab ORAL SCH (08:56)
[2020-03-23] MEDS: D5 1/2NS w/KCl 20mEq 1,000 ML IV SCH ×2 (11:42→22:04)
[2020-03-23 12:00] VITALS: BP 128/66
[2020-03-23 16:00] VITALS: BP 134/77
--- NOTE | 2020-03-23 17:14 | Diagnostic Imaging Report ---
Indication: Altered mental status, persistent rigidity Technique: sagittal T1 fast spin echo, axial T1 FLAIR, axial T2 FLAIR, axial T2 FS PROPELLER, axial T2* GRE, axial diffusion weighted images. ADC and exponential ADC maps generated Comparison: Brain CT dated 03/19/2020, brain MRI 03/23/2020 Findings: There is an area of restricted diffusion in the right tatum radiata extending into the basal ganglia. There is also a smaller focus of restricted diffusion in the left tatum radiata.. No acute hemorrhage or edema. There are punctate foci of susceptibility artifact in the left parasagittal parietal lobe, right frontal lobe, left posterior temporal lobe, and high right parietal deep white matter consistent with old microbleed's, mostly absent previously. There is age-related enlargement of the ventricles and extra axial CSF spaces. Which is progressed significantly since prior study. There is periventricular deep white matter high T2 signal. No mass effect nor midline shift. Visualized orbits and sinuses are unremarkable. Impression: Right tatum radiata and basal ganglia focus of diffusion restriction. Left tatum radiata acute focus of diffusion restriction. Given findings on recent CT scan, these most likely represent subacute to late subacute infarcts. Chronic and age-related changes, as described Multiple foci of susceptibility artifact scattered bilaterally, not evident previously but nonetheless likely representing old microbleeds
[2020-03-23] MEDS: Warfarin Sodium 1mg ORAL SCH (18:10)
[2020-03-23 20:00] VITALS: BP 151/73
--- NOTE | 2020-03-23 20:07 | Infectious Diseases Prog Note ---
Assessment/Plan Assessment/Plan Full consult dictated: A) 1) ? 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 Salazar 6) thank you Subjective Constitutional: Denies: fever Respiratory: Denies: shortness of breath Cardiovascular: Denies: chest pain Gastrointestinal/Abdominal: Denies: nausea, vomiting Allergies: Coded Allergies: CODEINE (Verified Allergy, Unknown, 11/03/17) SULFA (SULFONAMIDE ANTIBIOTICS) (Verified Allergy, Unknown, 11/03/17) SULFAMETHOXAZOLE (Verified Allergy, Unknown, 11/03/17) TRIMETHOPRIM (Verified Allergy, Unknown, 11/03/17) Objective Last 24 Hour Vital Signs Date Time Temp Pulse Resp B/P (MAP) Pulse Ox O2 Delivery O2 Flow Rate FiO2 03/23/20 16:00 97.8 81 18 134/77 (96) 95 03/23/20 12:00 97.8 87 18 128/66 (86) 95 03/23/20 09:00 Room Air 03/23/20 08:56 85 114/56 03/23/20 08:00 97.2 85 18 114/56 (75) 94 03/23/20 04:00 97.3 86 18 136/77 (96) 93 03/23/20 00:00 98.1 97 18 132/80 (97) 93 03/22/20 21:00 Room Air Height (Feet): 5 Height (Inches): 4.00 Weight (Pounds): 123 General Appearance: no acute distress HEENT: normocephalic, atraumatic, anicteric Respiratory/Chest: lungs clear, normal breath sounds, no respiratory distress Cardiovascular: normal rate, regular rhythm Abdomen: soft, non tender, no organomegaly Laboratory Tests Test 03/23/20 06:00 Prothrombin Time 16.5 SEC (9.30-11.50) H Prothromb Time International Ratio 1.5 (0.9-1.1) H Current Medications Medications (Trade) Dose Ordered Sig/Tres Route PRN Reason Start Time Stop Time Status Last Admin Dose Admin Atenolol (Tenormin) 12.5 mg DAILY ORAL 03/21/20 09:00 04/20/20 08:59 03/23/20 08:56 Ceftriaxone Sodium 1 gm/ Dextrose 55 ml @ 110 mls/hr Q24H IVPB 03/21/20 03:00 03/28/20 02:59 03/23/20 02:58 Dextrose/ Electrolytes 1,000 ml @ 75 mls/hr [id number] IV 03/20/20 08:00 04/19/20 07:59 03/23/20 11:42 Levetiracetam (Keppra) 250 mg EVERY 8 HOURS ORAL 03/21/20 06:00 04/20/20 05:59 03/23/20 15:20 Levothyroxine Sodium (Synthroid) 50 mcg DAILY@0630 ORAL 03/21/20 06:30 04/20/20 06:29 03/23/20 06:49 Lorazepam (Ativan 2mg/ml 1ml) 2 mg EVERY 2 HOURS PRN IV For Seizures 03/19/20 23:00 03/26/20 22:59 Warfarin Sodium (Warfarin Sod) 3 mg DAILY@17 ORAL 03/21/20 17:00 03/26/20 16:59 03/23/20 18:10 Rachel Bethea MD Mar 23, 2020 20:07
--- NOTE | 2020-03-23 21:00 | Consultation ---
DATE OF CONSULTATION: 03/23/2020 ADDENDUM CONSULTING PHYSICIAN: Rachel Bethea MD. ATTENDING PHYSICIAN: Kolby Salazar MD. REFERRING PHYSICIAN: Kolby Salazar MD. Case also was discussed with Dr. Suh. The patient had a brain MRI, which showed looks like acute new strokes. Treatment per Dr. Suh. Rachel Bethea M.D. DR: DANNA JOB#: [id number] CC:
--- NOTE | 2020-03-23 21:13 | Consultation ---
Consult Note Consult Note [facility] NEUROLOGY CONSULTATION March 23, [address] Salazar, I evaluated Ms. Estefanía Snider and my assessment is as follows. HISTORY: Ms. Estefanía Snider is an 84-year-old, right-handed, lady, who does have a past history of rheumatoid arthritis and Alzheimer's disease for numerous years. She also has a history of seizures that are under excellent control on Keppra. Over the last 6 months or so there has been a significant functional decline. She is also had multiple episodes of urinary tract infections. Approximately 1 week ago she was noted to be increasingly weak, lethargic, and exhibited significant decline in her oral intake. Laboratory data were relatively benign but the urine analysis revealed 10-20 white blood cells but no growth on culture. As her condition was progressively deteriorating at home she was brought into the [facility] emergency room and has since been admitted. Since her hospitalization she has been noted to have a significant increase in tone in all extremities. When she came in she was significantly lethargic but since she has been in the hospital she has brightened up as per her caregiver. The patient herself is significantly aphasic start with but at this moment is completely mute. PAST HISTORY: Multiple medical problems including rheumatoid arthritis, Alzheimer's disease, and a seizure disorder. FAMILY HISTORY: There is no family history of neurological illness. PERSONAL HISTORY: Home: She lives at home with her and a 24-hour caregiver. Work: She has been retired for numerous years. Habits: There is no history of alcohol tobacco or illicit drug use. ALLERGIES: He is allergic to codeine and sulfonamides. NEUROLOGIC REVIEW OF SYSTEMS: Benign. PHYSICAL EXAMINATION: GENERAL: She is a well-developed, relatively well-nourished, lady, lying in bed, in no acute distress. VITAL SIGNS: Pulse: 85/minute and regular. Blood Pressure: 151/73 mm of Hg. Respirations: 18/minute Temperature: 97.3 F HEAD: Normocephalic and atraumatic. NECK: No neck rigidity was observed. EENT: Benign. NEUROLOGIC EXAMINATION: MENTAL STATUS EXAMINATION: She was awake and looked alert. She made brief eye contact. She however was unable to follow simple commands. SPEECH: She was mute. LANGUAGE: She was unable to comprehend simple commands or express herself in any way. CRANIAL NERVE EXAMINATION: II: She did blink to threat bilaterally. III, IV, : External ocular movements were full and pupils 3 mm in diameter equal, round, regular and reactive to light. V & VII: The corneal reflexes were equally brisk bilaterally. She however had mild flattening of the left nasolabial fold. VIII: She seemed to be able to hear. She had no nystagmus. IX & X: Were not tested. XI: The sternocleidomastoids and trapezii functioned. XII: The tongue was in the midline without any fasciculations or atrophy. MOTOR SYSTEM: The tone was thickened increased in all 4 extremities with a combination of spasticity and gegenhalten. Examination of muscle mass revealed right greater than left finger flexor contractures, and in addition bilateral hip and knee contractures in flexion. Examination of power was impossible to perform because she was unable to give any voluntary effort in any of her extremities. She did however withdraw all 4 extremities on applying deep pain. She seemed to be severely apractic. SENSORY EXAMINATION: She responded to deep pain with withdrawal of the appropriate extremity. Other sensory modalities could not be tested. COORDINATION: She was unable to perform [id number] or [id number] testing. REFLEXES: 1+ on the right and 2+ on the left at the biceps, triceps, brachioradialis, and knees. 0 at both ankles. The plantar responses were flexor bilaterally. STANCE: Could not be tested. GAIT: Could not be tested. ABNORMAL MOVEMENTS: None DIAGNOSTIC IMPRESSION: 1. Ms. Estefanía Snider is an 84-year-old, right-handed, lady, who does have a past history of rheumatoid arthritis and Alzheimer's disease for numerous years. She also has a history of seizures that are under excellent control on Keppra. 2. Over the last 6 months or so there has been a significant functional decline. She is also had multiple episodes of urinary tract infections. 3. Approximately 1 week ago she was noted to be increasingly weak, lethargic, and exhibited significant decline in her oral intake. Laboratory data were relatively benign but the urine analysis revealed 10-20 white blood cells but no growth on culture. As her condition was progressively deteriorating at home she was brought into the [facility] emergency room and has since been admitted. 4. Since her hospitalization she has been noted to have a significant increase in tone in all extremities. When she came in she was significantly lethargic but since she has been in the hospital she has brightened up as per her caregiver. 5. On neurological examination, at this time, she is awake and looks alert. She makes brief eye contact. She however is unable to communicate in any other way and thus further mental status testing is impossible. 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 The tone in all 4 extremities is increased with a combination of spasticity and gegenhalten. She is quadriparetic and significantly apractic. She responds equally to deep pain in all 4 extremities. Her deep tendon reflexes are brisker on the left side compared to the right side. However, her plantar responses are flexor bilaterally. She is unable to cooperate for coordination stance and gait testing. 6. The MRI scan of the brain performed on 03/23/2020 reveals severe atrophy predominantly involving the temporoparietal areas. In addition recent infarcts are seen in the right coronary radiata and basal ganglia, and left coronary radiata. 7. Laboratory data on admission revealed relatively normal CBC. The chemistry panel revealed a sodium elevated at 154, a chloride elevated at 118, BUN elevated at 21, glucose elevated at 118, and low magnesium at 2.6. Her urine analysis revealed 2+ leukocyte esterase 40-60 white blood cells and 2-4 red blood cells. 8. The patient's altered mental state and increased spasticity are most probably due to a combination of her underlying structural brain disease associated with Alzheimer's disease, recent bilateral cerebral infarcts, multiple electrolyte imbalances, dehydration, and urinary tract infection. RECOMMENDATIONS: 1. Agree with management thus far. 2. Continue to correct patient's toxic metabolic imbalances. 3. Continue Keppra for seizure prophylaxis. 4. Frequent range of motion exercises. 5. Physical and Occupational Therapy. 6. Observe closely. Thank you for entrusting me to take care of Ms. Snider's Neurologic needs. I shall follow her with you. Sincerely, Norm Suh M.D., M.S.P.H. Neurologist & Clinical Neurophysiologist Norm Shu MD Mar 23, 2020 21:13
--- NOTE | 2020-03-23 22:01 | Geriatric Progress Note ---
Assessment/Plan Problems: (1) Rheumatoid arthritis (2) Volume depletion (3) UTI (urinary tract infection) (4) Dehydration (5) Osteoporosis (6) Hyperlipidemia (7) Hypernatremia (8) Hypothyroidism (9) Seizure disorder (10) Encephalopathy acute (11) Gait instability (12) Advanced dementia (13) FTT (failure to thrive) in adult (14) History of pulmonary embolism (15) B12 deficiency (16) Lacunar infarction (17) Chronic intracerebral hemorrhage Assessment/Plan Functionally slowly improving. Per caregiver may be sufficiently improved to consider d/c to home. Hypernatremia, electrolyte disorder resolving. Recheck labs. Possible UTI, complete course of ceftriaxone. Apparent bilateral subacute lacunes resulting in increased rigidity. In addition, microbleeds. Will review with Dr. Suh - ?amyloid angiopathy. Given hemorrhages likely not candidate for more aggressive anticoagulation. Discussed earlier with in detail. Reviewed pathophysiology, treatments in detail. If patient remains stable, consider discharge after antibiotic dose. Discussed with: patient, hospital staff, other - private caregiver Subjective Interval Events Patient resting. Caregiver reports slight further improvement. Staff notes large normal bowel movement today. No new issues noted. INR 1.5, but only 2 doses of Warfarin since resumption. Cultures remain negative. Discussed CT abdomen/pelvis and pelvic u/s with Dr. Veloz, no anatomic abnormalities noted to explain recurrent UTI and pyuria. MRI brain with B subacute tatum radiate lacunes, as well as old microbleeds. Dr. Bethea recommends one more dose of ceftriaxone to complete 5 day course. Seen by Dr. Suh who confirms vascular component of presentation. Subjective Unable to respond. Geriatric Geriatric Last 24 Hour Vital Signs Date Time Temp Pulse Resp B/P (MAP) Pulse Ox O2 Delivery O2 Flow Rate FiO2 03/23/20 21:37 Room Air 03/23/20 20:00 97.3 85 18 151/73 (99) 95 03/23/20 16:00 97.8 81 18 134/77 (96) 95 03/23/20 12:00 97.8 87 18 128/66 (86) 95 03/23/20 09:00 Room Air 03/23/20 08:56 85 114/56 03/23/20 08:00 97.2 85 18 114/56 (75) 94 03/23/20 04:00 97.3 86 18 136/77 (96) 93 03/23/20 00:00 98.1 97 18 132/80 (97) 93 Intake and Output 03/22/20 03/23/20 19:00 07:00 Intake Total 1020 ml 585 ml Output Total 400 ml 1200 ml Balance 620 ml -615 ml Intake Oral 120 ml 60 ml IV Total 900 ml 525 ml Output Urine Total 400 ml 1200 ml # Voids 3 Laboratory Tests Test 03/23/20 06:00 Prothrombin Time 16.5 SEC (9.30-11.50) H Prothromb Time International Ratio 1.5 (0.9-1.1) H Current Medications Medications (Trade) Dose Ordered Sig/Tres Route PRN Reason Start Time Stop Time Status Last Admin Dose Admin Atenolol (Tenormin) 12.5 mg DAILY ORAL 03/21/20 09:00 04/20/20 08:59 03/23/20 08:56 Ceftriaxone Sodium 1 gm/ Dextrose 55 ml @ 110 mls/hr Q24H IVPB 03/21/20 03:00 03/24/20 03:01 03/23/20 02:58 Dextrose/ Electrolytes 1,000 ml @ 75 mls/hr [id number] IV 03/20/20 08:00 04/19/20 07:59 03/23/20 11:42 Levetiracetam (Keppra) 250 mg EVERY 8 HOURS ORAL 03/21/20 06:00 04/20/20 05:59 03/23/20 21:09 Levothyroxine Sodium (Synthroid) 50 mcg DAILY@0630 ORAL 03/21/20 06:30 04/20/20 06:29 03/23/20 06:49 Lorazepam (Ativan 2mg/ml 1ml) 2 mg EVERY 2 HOURS PRN IV For Seizures 03/19/20 23:00 03/26/20 22:59 Warfarin Sodium (Warfarin Sod) 3 mg DAILY@17 ORAL 03/21/20 17:00 03/26/20 16:59 03/23/20 18:10 Height (Feet): 5 Height (Inches): 4.00 Weight (Pounds): 123 General Appearance: no apparent distress Head: normocephalic, atraumatic Eyes: bilateral anicteric Neck: full range of motion, no mass Respiratory: lungs clear, decreased breath sounds Cardiovascular: regular rate, rhythm Gastrointestinal: normal bowel sounds, non tender, soft, no mass, no organomegaly Musculoskeletal: no calf tenderness Edema: no edema noted Generalized Neurologic: no new focality, other - rigidity persists Kolby Salazar MD Mar 23, 2020 22:01
--- NOTE | 2020-03-23 22:15 | Consultation ---
DATE OF CONSULTATION: 03/23/2020 INFECTIOUS DISEASE CONSULTATION CONSULTING PHYSICIAN: Rachel Bethea MD. ATTENDING PHYSICIAN: Kolby Salazar MD. REFERRING PHYSICIAN: Kolby Salazar MD. REASON FOR CONSULTATION: Complicated UTI, fevers, and VRE colonization. CHIEF COMPLAINT: The patient's chief complaint coming into the hospital is dehydration and failure to thrive. HISTORY OF PRESENT ILLNESS: This is an 84-year-old female who presented to [facility] with low-grade fevers. She also had positive urinalysis. She has a history of urinary tract infection that had been treated in the past. Because of positive urinalysis and low-grade fevers and failure to thrive, Infectious Disease consultation was requested for management of this patient if antibiotic management is needed. Per discussion with Dr. Salazar, the patient has a history of asymptomatic pyuria, however, the patient is not a very good historian. The patient was given cefepime on the 19 of March and then started on the with Rocephin. I saw the patient yesterday. Today is day #4 of antibiotics. Urinalysis has improved with the antibiotics as well as the fevers. They have actually resolved. The patient has a history of multiple other medical problems also. Case again was discussed with Dr. Salazar. MAR was noted. Orders were noted. Notes were reviewed. Case was discussed with RN. Case was discussed as well with the patient's bedside caregiver. REVIEW OF SYSTEMS: CONSTITUTIONAL: The patient has generalized weakness. She is nonverbal. She did come in with low-grade fevers consistently of 99-plus. The patient, also per the records, had dehydration, failure to thrive, and functional decline. She has generalized weakness, nonverbal. HEAD AND NECK: Could not really be assessed. CARDIAC: She is not on pressors. GASTROINTESTINAL: No nausea, vomiting, or diarrhea. GENITOURINARY: She has a Campos currently. PULMONARY: No significant cough, shortness of breath, or congestion appreciated. SKIN: No obvious rash. NEUROLOGIC: No seizures appreciated. Otherwise review of systems is limited. No obvious nausea, vomiting, or diarrhea either. No rectal tube. I do not believe she has a central line. No rash or seizures. Review of systems is limited in this patient. PAST MEDICAL HISTORY: She has a history of Enterococcus UTI, encephalopathy, failure to thrive, dehydration, functional decline. Other past medical history includes rheumatoid arthritis. She has history of sepsis in the past, tachyarrhythmia, cognitive decline, multifactorial gait disorder fractures, and rheumatoid arthritis. She has been on the Simponi and methotrexate for that. She has a history of hypothyroidism, dyslipidemia, hyperlipidemia, seizures, osteopenia, migraines, depression, pseudobulbar, history of pulmonary embolism, mitral valve prolapse, cataracts, appendectomy, and osteoporosis. No hypertension or diabetes mentioned. Possible dyslipidemia. ALLERGIES: Include sulfa drugs and codeine, including looks like Bactrim. SOCIAL HISTORY: Negative for smoking, alcohol, and drug abuse. FAMILY HISTORY: Per the records, there is no mention of exposure to tuberculosis or cancer. MEDICATIONS: Outside medications included vitamin D, Lexapro, folate, Simponi, methotrexate, levothyroxine, lovastatin, warfarin, Keppra, atenolol. Upon reviewing the MAR, she is on following medications here. She is on warfarin, atenolol, levothyroxine, levetiracetam, and Rocephin. She was given cefepime prior, lorazepam. PHYSICAL EXAMINATION: VITAL SIGNS: Temperature is 97.8, pulse rate 81, respiratory rate 18, blood pressure 134/77. Saturation 95% on room air. T-max, when she was first admitted, was consistent 99.7 and 99.6 for five straight readings. Heart rate has been as high as 93. GENERAL: She is weak. She does not really open her eyes. She is nonverbal. HEAD AND NECK: Oral exam, no thrush. Eyes, no icterus. Normocephalic. Neck seems to be supple. HEART: Regular. No friction rub. Maybe 1/6 systolic murmur, but no gallop. ABDOMEN: Soft. Positive bowel sounds. Really could not assess tenderness. LUNGS: Fairly clear bilaterally. No rhonchi or rales. No respiratory distress. MUSCULOSKELETAL: No effusions. Legs are without cellulitis. PERIPHERAL VASCULAR: No cyanosis or gangrene. SKIN: No other rash noted. GENITOURINARY: She has a Campos. Urine is slightly cloudy. LINE SITES: Without phlebitis. NEUROLOGIC: Generalized weakness. Poorly responsive. Nonverbal. LABORATORY DATA: Initial urinalysis had 40 to 60 white cells. This was on March 19, 2020 and also 2+ leukocyte esterase. Followup UA from yesterday was negative. Creatinine 0.8. LFTs were normal. White count 10.1 and hemoglobin 13.5. Cultures - rectal sample VRE is positive. MRSA screen is negative. COVID testing is negative. Urine culture is negative. Blood cultures are negative. IMAGING STUDIES: CT scan of the abdomen and pelvis showed the following. It shows cystic lesion within the pelvis with no suspicious features. Chest x-ray, no acute process. Pelvic ultrasound had a cyst, almost certainly benign per the report. ASSESSMENT AND PLAN: 1. The patient has possible complicated urinary tract infection. She did have fevers, failure to thrive, and dehydration coming in. UA was positive consistent with urinary tract infection. She did have urine culture negative, however, is difficult to assess how accurate this is since the patient has been on antibiotics in the past for urinary tract infection. I am not clear when was most recent course was. Because of the fevers, failure to thrive, and dehydration, I favor to treat the urinary tract infection for a short course of five days of antibiotics. She was on cefepime on the 1st then she was started on Rocephin on 3rd, and today will be day #4 of antimicrobial coverage. That is antibiotic coverage treatment for UTI. Finish five-day course, tomorrow will be the last day of Rocephin. UA has improved also on antibiotics as was the fevers. Finish Rocephin for complicated UTI and fevers. 2. VRE colonization. No indication for treatment at this time. 3. Case was discussed with Dr. Salazar. 4. Failure to thrive and dehydration. Continue IV fluids. 5. Hypothyroidism. Continue thyroid supplementation. 6. History of UTIs and sepsis in the past. 7. Multifactorial gait disorder. 8. Hypothyroidism. 9. Hyperlipidemia. 10. Seizure disorder. 11. Osteopenia. 12. Migraines. 13. Depression, anxiety, and paranoia. 14. History of pulmonary embolism. 15. Mitral valve prolapse. 16. History of cataracts. 17. History of appendectomy. 18. History of osteoporosis. 19. Rheumatoid arthritis. 20. The patient is on methotrexate and Simponi. 21. Allergies to codeine, sulfa drugs, and Bactrim. 22. Social history is negative. 23. Family history is noncontributory. 24. MAR was noted. 25. Case was discussed with RN. 26. Case was discussed with Dr. Salazar. 27. Case was discussed with the patient's caregiver at the bedside. Rachel Bethea M.D. DR: DANNA JOB#: [id number] CC: LEFTY
[2020-03-24] MEDS: cefTRIAXone 1 GM in D5W 55 ML IVPB SCH (03:00)
[2020-03-24 04:00] VITALS: BP 129/71
[2020-03-24] MEDS: D5 1/2NS w/KCl 20mEq 1,000 ML IV SCH (04:45)
[2020-03-24 08:00] VITALS: BP_SYST 125; BP_SYST 152; BP_DIAS 117; BP_DIAS 65
[2020-03-24 08:49] LABS: BASOPHILS % (AUTO) 1.3 % (0.0-2.0); EOSINOPHILS % (AUTO) 5.6 % (0.0-3.0); HEMATOCRIT 36.3 % (37.0-47.0); HEMOGLOBIN 12.5 G/DL (12.0-16.0); LYMPHOCYTES % (AUTO) 26.1 % (20.0-45.0); MEAN CORPUSCULAR VOLUME 93 FL (80-99); MONOCYTES % (AUTO) 8.2 % (1.0-10.0); NEUTROPHILS % (AUTO) 58.8 % (45.0-75.0); PLATELET COUNT 183 K/UL (150-450); RED BLOOD COUNT 3.91 M/UL (4.20-5.40); WHITE BLOOD COUNT 6.5 K/UL (4.8-10.8)
[2020-03-24 09:01] LABS: INR 1.3 (0.9-1.1)
[2020-03-24 09:13] LABS: ALANINE AMINOTRANSFERASE 18 U/L (12-78); ALBUMIN 2.6 G/DL (3.4-5.0); ALBUMIN/GLOBULIN RATIO 0.7 (1.0-2.7); ALKALINE PHOSPHATASE 76 U/L (46-116); ANION GAP 8 mmol/L (5-15); ASPARTATE AMINO TRANSFERASE 22 U/L (15-37); BILIRUBIN,TOTAL 0.3 MG/DL (0.2-1.0); BLOOD UREA NITROGEN 12 mg/dL (7-18); CALCIUM 8.9 MG/DL (8.5-10.1); CARBON DIOXIDE 27 MMOL/L (21-32); CHLORIDE 106 MMOL/L (98-107); CREATININE 0.8 MG/DL (0.55-1.30); POTASSIUM 3.7 MMOL/L (3.5-5.1); SODIUM 141 MMOL/L (136-145)
[2020-03-24] MEDS: Atenolol 25mg tab ORAL SCH (09:21)
[2020-03-24 12:00] VITALS: BP 139/67
--- NOTE | 2020-03-24 14:48 | Geriatric Progress Note ---
Assessment/Plan Problems: (1) Rheumatoid arthritis (2) Volume depletion (3) UTI (urinary tract infection) (4) Dehydration (5) Osteoporosis (6) Hyperlipidemia (7) Hypernatremia (8) Hypothyroidism (9) Seizure disorder (10) Encephalopathy acute (11) Gait instability (12) Advanced dementia (13) FTT (failure to thrive) in adult (14) History of pulmonary embolism (15) B12 deficiency (16) Lacunar infarction (17) Chronic intracerebral hemorrhage Assessment/Plan D/c home with HHC as above. Discussed with: family Subjective Interval Events Labs reviewed, stabilized. INR on low side but hopefully should rise in next day or so, with resumption of Coumadin 3 days ago. Staff reports no new functional issues. Discussed with including MRI findings. Reviewed prognosis, treatment options. Taking sufficient p.o. from caregivers, OK for d/c this p.m. Will keep off Nuedexta and Lexapro for now. Reduced Keppra dose. Will need to resume HHC including wound care of blister on heel. Geriatric Geriatric Last 24 Hour Vital Signs Date Time Temp Pulse Resp B/P (MAP) Pulse Ox O2 Delivery O2 Flow Rate FiO2 03/24/20 12:00 97.7 76 17 139/67 (91) 99 03/24/20 09:21 76 125/65 03/24/20 09:00 Room Air 03/24/20 08:00 97.8 76 17 125/65 (85) 95 03/24/20 04:00 97.7 82 18 129/71 (90) 95 03/23/20 21:37 Room Air 03/23/20 20:00 97.3 85 18 151/73 (99) 95 03/23/20 16:00 97.8 81 18 134/77 (96) 95 Intake and Output 03/23/20 03/24/20 19:00 07:00 Intake Total 1065 ml 175 ml Output Total 600 ml 650 ml Balance 465 ml -475 ml Intake Oral 240 ml 100 ml IV Total 825 ml 75 ml Output Urine Total 600 ml 650 ml # Bowel Movements 1 Laboratory Tests Test 03/24/20 08:05 White Blood Count 6.5 K/UL (4.8-10.8) Red Blood Count 3.91 M/UL (4.20-5.40) L Hemoglobin 12.5 G/DL (12.0-16.0) Hematocrit 36.3 % (37.0-47.0) L Mean Corpuscular Volume 93 FL (80-99) Mean Corpuscular Hemoglobin 31.9 PG (27.0-31.0) H Mean Corpuscular Hemoglobin Concent 34.3 G/DL (32.0-36.0) Red Cell Distribution Width 13.0 % (11.6-14.8) Platelet Count 183 K/UL (150-450) Mean Platelet Volume 6.1 FL (6.5-10.1) L Neutrophils (%) (Auto) 58.8 % (45.0-75.0) Lymphocytes (%) (Auto) 26.1 % (20.0-45.0) Monocytes (%) (Auto) 8.2 % (1.0-10.0) Eosinophils (%) (Auto) 5.6 % (0.0-3.0) H Basophils (%) (Auto) 1.3 % (0.0-2.0) Prothrombin Time 14.4 SEC (9.30-11.50) H Prothromb Time International Ratio 1.3 (0.9-1.1) H Sodium Level 141 MMOL/L (136-145) Potassium Level 3.7 MMOL/L (3.5-5.1) Chloride Level 106 MMOL/L (98-107) Carbon Dioxide Level 27 MMOL/L (21-32) Anion Gap 8 mmol/L (5-15) Blood Urea Nitrogen 12 mg/dL (7-18) Creatinine 0.8 MG/DL (0.55-1.30) Estimat Glomerular Filtration Rate > 60 mL/min (>60) Glucose Level 112 MG/DL (74-106) H Calcium Level 8.9 MG/DL (8.5-10.1) Total Bilirubin 0.3 MG/DL (0.2-1.0) Aspartate Amino Transf (AST/SGOT) 22 U/L (15-37) Alanine Aminotransferase (ALT/SGPT) 18 U/L (12-78) Alkaline Phosphatase 76 U/L (46-116) Total Protein 6.5 G/DL (6.4-8.2) Albumin 2.6 G/DL (3.4-5.0) L Globulin 3.9 g/dL Albumin/Globulin Ratio 0.7 (1.0-2.7) L Current Medications Medications (Trade) Dose Ordered Sig/Tres Route PRN Reason Start Time Stop Time Status Last Admin Dose Admin Atenolol (Tenormin) 12.5 mg DAILY ORAL 03/21/20 09:00 04/20/20 08:59 03/24/20 09:21 Levetiracetam (Keppra) 250 mg EVERY 8 HOURS ORAL 03/21/20 06:00 04/20/20 05:59 03/24/20 13:19 Levothyroxine Sodium (Synthroid) 50 mcg DAILY@0630 ORAL 03/21/20 06:30 04/20/20 06:29 03/24/20 05:40 Warfarin Sodium (Warfarin Sod) 3 mg DAILY@17 ORAL 03/21/20 17:00 03/26/20 16:59 03/23/20 18:10 Height (Feet): 5 Height (Inches): 4.00 Weight (Pounds): 123 Kolby Salazar MD Mar 24, 2020 14:48
[2020-03-24] MEDS ORDERED: METHOTREXA25 MG/1 M7 IJ (14:59)
[2020-03-24] MEDS ORDERED: PROLIA60 MG/1 ML SUBQ (14:59)
[2020-03-24] MEDS ORDERED: VITAMIN D350 MC1 PO (14:59)
[2020-03-24] MEDS ORDERED: SIMPONI50 MG/0.5 SQ (14:59)
[2020-03-24] MEDS ORDERED: KEPPRA500 MG ORAL (14:59)
[2020-03-24 16:00] VITALS: BP 137/64
--- NOTE | 2020-03-24 16:02 | Discharge Summary ---
Discharge Summary Discharge Summary _ Date of Admission: March 19, 2020. Date of Discharge: March 24, 2020. Discharge Diagnoses: 1. Adult failure to thrive, progressive over last 6 months. 2. Volume depletion, resolved. 3. Hypernatremia, resolved. 4. Toxic-metabolic encephalopathy, multi-factorial, improved. 5. Sterile pyuria with low-grade fever responding to empirical antibiotic therapy, suggestive of UTI. 6. Bilateral heel pressure injuries, present on admission. 7. New findings of bilateral subacute tatum radiata white matter infarcts, correlating with recent functional decline. 8. Significant chronic white matter disease and bilateral old microbleeds on brain MRI. 9. Episode in May 2019 with Enterococcus faecalis urinary tract infection associated with encephalopathy, fever, volume depletion, and tachycardia. 10. Episode several months ago of lethargy, cough, fever, with positive SARS-CoV-2 antibody, but no positive PCR results. Respiratory symptoms resolved with negative PCR studies several weeks ago, obtained because of more recent decline. 11. Recurrent low-grade fevers over last 6 months, initially felt to be associated with possible COVID-19, but persisting despite clinical resolution of other symptoms. Work-up at home has included negative blood culture results, negative TB Gold test. Ultimately felt to be most likely caused by active rheumatoid arthritis for which the patient is receiving Simponi and methotrexate. 12. Prior episode of sepsis in 2019 with E coli bacteremia due to urinary tract infection, with history of multiple prior urinary tract infections with associated encephalopathy and systemic symptoms. 13. Transient tachyarrythmia due to sepsis in the past, including probable episode of rapid atrial fibrillation. 14. 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 15. Multifactorial gait and mobility disorder. 16. History of fall with rib fractures. 17. History of rheumatoid arthritis, on Simponi and methotrexate. 18. Hypothyroidism. 19. Hyperlipidemia. 20. Seizure disorder, controlled on Keppra. 21. Osteoporosis, treated with Denosumab. 22. History of migraines. 23. History of depression with anxiety and paranoia. 24. 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 25. 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 26. Mitral valve prolapse. 27. Status post cataract surgery, left eye. 28. Status post appendectomy.Osteoporosis, treated with Denosumab. 29. Vancomycin-resistant enterococcus present on rectal screening on this admission. Medications: 1. Vitamin D3 1000 units qd. 2. Cyanocobalamin 1000 mcg IM monthly. 3. Prolia every 6 months, last administered approximately 12 months ago 4. Folate 1 mg daily. 5. Simponi [address] Nava. 6. Methotrexate [address] Nava. 7. Levothyroxine 50 mcg 6x/wk. 8. Lovastatin 40 mg nightly. 9. Warfarin 3 mg each afternoon. 10. Keppra 250 mg every eight hours. 11. Atenolol 12.5 mg daily. 12. Cranberry pills. Allergies: Codeine. Sulfa drugs including Trimethoprim/Sulfa. History of Present Illness: Ms. Snider is an 84-year-old woman with progressive functional decline over the last 6 months, accelerating over the last few days. Despite multiple interventions at home, she became increasingly weak lethargic and had diminished oral intake. She was brought to the emergency department where evaluation revealed a low-grade temperature significant hypernatremia and pyuria on urinalysis. Initial CT scan of the brain revealed evidence of bilateral tatum radiata lesions either subacute or old which had not been previously seen in 2013. Patient was given empirical antibiotic therapy for possible urinary tract infection and intravenous fluids were begun for hydration and correction of electrolyte disorder. She is admitted to the hospital for further evaluation and treatment. Details of the history and physical examination are per the dictation of March 19, 2020. Hospital Course: Because of the patient's lethargy her psychoactive medications were held on admission. Her other oral medications were also held because of her mental status initially. Hydration was initiated with normal saline with 20 mEq of potassium chloride initially at 100 cc an hour and then decrease to 75 cc an hour 2 days after admission. Patient was placed on empirical ceftriaxone for possible urinary tract infection as well. Over several days the patient began to improve and became less lethargic. Her oral intake gradually improved as well. She remains nonverbal and physical examination was remarkable for significant rigidity in all extremities. Patient's urine culture eventually demonstrated no growth along with negative blood cultures. Infectious disease consultation was obtained from Dr. Rachel Ramirezoles is felt that a 5-day course of empirical antibiotics would be appropriate since the patient presented initially with low-grade fever and pyuria. Repeat urinalysis on the third day of admission demonstrated resolution of the sterile pyuria. CAT scan of the abdomen pelvis and follow-up pelvic ultrasound failed to demonstrate specific urinary tract pathology which would account for the patient's recurrent urinary tract infections and the sterile pyuria. Patient has had an outpatient TB Gold test which was negative. The imaging did reveal a approximately 5 cm simple cyst in the pelvis which radiologically was felt to be an adnexal cyst. No intrinsic bladder pathology was appreciated and no evidence of obstruction or upper tract disease which would account for the sterile pyuria. Given the new finding of rigidity in all extremities, an MRI of the brain was obtained to further evaluate the abnormalities noted on CT scan. Neurologic consultation was also requested from Dr. Norm Suh. The MRI imaging revealed subacute bilateral tatum radiata infarcts as well as significant bilateral white matter disease. There was also evidence of old bilateral micro bleeds. Dr. Suh felt that her increased spasticity and gegenhalten was attributable to the new ischemic vascular lesions which presumably have occurred in the last weeks to months. One other possible factor could be a component of rheumatoid vasculitis associated with her active rheumatoid arthritis. The patient slowly improved over the course of the admission with an alertness comparable to baseline but no vocalization. It is been elected to keep her off her psychoactive medications to see if her mental status can improve somewhat due to the possible element of sedation associated with the medications. In addition the patient's Keppra dosage was reduced slightly from 500 every 12 hours to 250 every 8 hours. On admission to the hospital the patient was noted to have bilateral heel lesions compatible with deep tissue injury. At the time of discharge she has developed a blistering lesion on the right heel as well as erythema on the left heel. Wound care was provided during the admission and follow-up with home health care in that regard will be arranged. The patient's diagnosis prognosis and treatment options were reviewed on several occasions in detail with the patient's . He concurs with the present conservative approach but may wish to reconsider parenteral feedings in the future, although the current literature suggests that patients with advanced cognitive dysfunction such as Ms. Snider are unlikely to benefit in the long run. The patient be followed up by telemedicine visits and in the office. Kolby Salazar MD Mar 24, 2020 16:02
--- NOTE | 2020-03-24 17:16 | Cardiology Report ---
APPROVED REPORT EKG Measurement Heart [id number] AR P22 [id number] <Conclusion> poorl quality tracing likey sinus however would recommend repeating the ekg Septal infarct, age undetermined Abnormal ECG
[2020-03-24] MEDS: Warfarin Sodium 1mg ORAL SCH (18:59)
[2020-03-24] MEDS ORDERED: Warfarin Sodium 1mg ORAL ONE (19:45)
[2020-03-24 20:55] VITALS: BP 141/83
== END 2020-03-24 20:35 | disposition home health service (06) | DRG 689 ==
LOC: EDBD 15:52 → EDUNIT# 15:52 → EMR 16:15 → 4E 17:25 → EDBEDREQ 18:17
DX: N39.0 Urinary tract infection, site not specified (principal); G92 Toxic encephalopathy; I63.81 Other cerebral infarction due to occlusion or stenosis of small artery; E87.0 Hyperosmolality and hypernatremia; E86.0 Dehydration; L89.626 Pressure-induced deep tissue damage of left heel; L89.616 Pressure-induced deep tissue damage of right heel; M06.9 Rheumatoid arthritis, unspecified; G40.909 Epilepsy, unspecified, not intractable, without status epilepticus; Z88.6 Allergy status to analgesic agent; Z88.2 Allergy status to sulfonamides; Z88.8 Allergy status to other drugs, medicaments and biological substances; E86.9 Volume depletion, unspecified; R62.7 Adult failure to thrive; E03.9 Hypothyroidism, unspecified; Z86.711 Personal history of pulmonary embolism; Z86.718 Personal history of other venous thrombosis and embolism; M81.0 Age-related osteoporosis without current pathological fracture; I34.1 Nonrheumatic mitral (valve) prolapse; E78.5 Hyperlipidemia, unspecified; G30.9 Alzheimer's disease, unspecified; F02.80 Dementia in other diseases classified elsewhere, unspecified severity, without behavioral disturbance, psychotic disturbance, mood disturbance, and anxiety; Z22.1 Carrier of other intestinal infectious diseases; F32.9 Major depressive disorder, single episode, unspecified; F41.9 Anxiety disorder, unspecified; F22 Delusional disorders; R26.81 Unsteadiness on feet; E53.8 Deficiency of other specified B group vitamins; Z22.39 Carrier of other specified bacterial diseases; N94.89 Other specified conditions associated with female genital organs and menstrual cycle
CPT/HCPCS: 36415; 70450; 70551; 71045; 74177; 76857; 80048; 80053; 81003; 82553; 83605; 83735; 84484; 85025; 85610; 87040; 87081; 87086; 93005; 96361; 96365; 99285; J7030; U0002

== ENCOUNTER 2020-04-28 17:52 | Emergency (ER) | payer MEDICARE, OTHER ==
[~2020-04-28] VITALS: Ht 167.6 cm; Wt 63.5 kg
[~2020-04-28 17:52] MED LIST changes: +KEPPRA500 MG ORAL; +METHOTREXA25 MG/1 M7 IJ; +PROLIA60 MG/1 ML SUBQ; +SIMPONI50 MG/0.5 SQ; +VITAMIN D350 MC1 PO
[2020-04-28 18:09] VITALS: BP 143/80
--- NOTE | 2020-04-28 18:13 | Emergency Room Report ---
History of Present Illness General Chief Complaint: Upper Extremity Injury Source: Patient Present Illness HPI 84-year-old female history of dementia nonverbal at baseline, here with left shoulder possible dislocation according to the patient's daughter. Patient daughter bedside says that she noticed that the patient was not using her left arm and appeared to be in pain when palpating the left shoulder. Patient is nonverbal and unable to answer questions. Allergies: Coded Allergies: CODEINE (Verified Allergy, Unknown, 11/03/17) SULFA (SULFONAMIDE ANTIBIOTICS) (Verified Allergy, Unknown, 11/03/17) SULFAMETHOXAZOLE (Verified Allergy, Unknown, 11/03/17) TRIMETHOPRIM (Verified Allergy, Unknown, 11/03/17) COVID-19 Screening Contact w/high risk pt: No Experienced COVID-19 symptoms?: No COVID-19 Testing performed FX ARTIST: No Nursing Documentation-PMH Past Medical History: No History, Except For Hx Cardiac Problems: Yes Hx Hypertension: No - Rheumatoid arthritis Hx Pacemaker: No Hx Asthma: No Hx COPD: No Hx Diabetes: No Hx Cancer: No Hx Gastrointestinal Problems: No Hx Dialysis: No Hx Neurological Problems: Yes Hx Cerebrovascular Accident: No Hx Alzheimer's Disease: Yes Hx Seizures: Yes - years ago Review of Systems All Other Systems: limited - Dementia Physical Exam Vital Signs Date Time Temp Pulse Resp B/P (MAP) Pulse Ox O2 Delivery O2 Flow Rate FiO2 04/28/20 17:55 96.6 75 15 143/80 (101) 97 Room Air Sp02 EP Interpretation: reviewed, normal General Appearance: no apparent distress, alert, non-toxic Head: normocephalic, atraumatic Eyes: bilateral eye normal inspection, bilateral eye PERRL ENT: hearing grossly normal, normal pharynx, no angioedema, normal voice Neck: full range of motion, supple/symm/no masses Respiratory: chest non-tender, lungs clear, normal breath sounds, speaking full sentences Cardiovascular #1: regular rate, rhythm, no edema Cardiovascular #2: 2+ carotid (R), 2+ carotid (L), 2+ radial (R), 2+ radial (L), 2+ dorsalis pedis (R), 2+ dorsalis pedis (L) Gastrointestinal: normal bowel sounds, non tender, soft, non-distended, no guarding, no rebound Rectal: deferred Genitourinary: normal inspection, no CVA tenderness Musculoskeletal: back normal, normal range of motion, calf tenderness, gait/station normal, other - Diffusely swollen left shoulder with 4 cm area of overlying erythema. No active drainage. Large region of ecchymosis Neurologic: alert, motor strength/tone normal, oriented x3, sensory intact, responsive, speech normal Psychiatric: judgement/insight normal, memory normal, mood/affect normal, no suicidal/homicidal ideation Reflexes: 3+ bicep (R), 3+ bicep (L), 3+ tricep (R), 3+ tricep (L), 3+ knee (R), 3+ knee (L) Lymphatic: no adenopathy Medical Decision Making Diagnostic Impression: Primary Impression: Fall Additional Impressions: Shoulder contusion Dementia ER Course EKG: NSR, no ischemia, intervals WNL. No ectopy. Rate 74 bpm Rhythm strip: patient monitored for arrhythmias - no malignant dysrhythmias, runs of PVCs, nor pauses noted Troponin was ordered. Was negative EXAM: CT Left Upper Extremity Without Intravenous Contrast, Shoulder CLINICAL HISTORY: PAIN TECHNIQUE: Axial computed tomography images of the left shoulder without intravenous contrast. CTDI is 6.7 mGy and DLP is 161.5 mGy-cm. One or more of the following dose reduction techniques were used: automated exposure control, adjustment of the mA and/or kV according to patient size, use of iterative reconstruction technique. COMPARISON: No relevant prior studies available. FINDINGS: Bones/joints: No acute fracture or dislocation. There are mild degenerative changes of the left shoulder joint. Soft tissues: There is edema in the anterior left shoulder with a large lesion involving the anterior portion of the left deltoid muscle measuring approximately 4.6 x 6.6 x 3.2 cm. IMPRESSION: Large lesion involving the anterior left deltoid muscle measures 4.6 x 6.6 x 3.2 cm. Differential diagnosis would be hematoma if there is a history of trauma. If there is no history of trauma, neoplasm is not excluded. Laboratory Tests Test 04/28/20 19:00 White Blood Count 9.8 K/UL (4.8-10.8) Red Blood Count 3.50 M/UL (4.20-5.40) L Hemoglobin 11.5 G/DL (12.0-16.0) L Hematocrit 34.8 % (37.0-47.0) L Mean Corpuscular Volume 100 FL (80-99) H Mean Corpuscular Hemoglobin 32.8 PG (27.0-31.0) H Mean Corpuscular Hemoglobin Concent 32.9 G/DL (32.0-36.0) Red Cell Distribution Width 13.8 % (11.6-14.8) Platelet Count 264 K/UL (150-450) Mean Platelet Volume 6.6 FL (6.5-10.1) Neutrophils (%) (Auto) 67.4 % (45.0-75.0) Lymphocytes (%) (Auto) 20.2 % (20.0-45.0) Monocytes (%) (Auto) 8.6 % (1.0-10.0) Eosinophils (%) (Auto) 3.0 % (0.0-3.0) Basophils (%) (Auto) 0.9 % (0.0-2.0) Sodium Level 142 MMOL/L (136-145) Potassium Level 3.9 MMOL/L (3.5-5.1) Chloride Level 106 MMOL/L (98-107) Carbon Dioxide Level 30 MMOL/L (21-32) Anion Gap 6 mmol/L (5-15) Blood Urea Nitrogen 19 mg/dL (7-18) H Creatinine 1.0 MG/DL (0.55-1.30) Estimated Glomerular Filtration Rate 53.1 mL/min (>60) Glucose Level 103 MG/DL (74-106) Lactic Acid Level Pending Calcium Level 9.1 MG/DL (8.5-10.1) Total Bilirubin 0.6 MG/DL (0.2-1.0) Aspartate Amino Transferase (AST) 19 U/L (15-37) Alanine Aminotransferase (ALT) 19 U/L (12-78) Alkaline Phosphatase 76 U/L (46-116) Total Creatine Kinase 86 U/L (26-308) Creatine Kinase MB 1.7 NG/ML (0.0-3.6) Creatine Kinase MB Relative Index 1.9 Troponin I 0.016 ng/mL (0.000-0.056) Total Protein 7.3 G/DL (6.4-8.2) Albumin 3.1 G/DL (3.4-5.0) L Globulin 4.2 g/dL Albumin/Globulin Ratio 0.7 (1.0-2.7) L 84-year-old female here for evaluation of left shoulder injury. X-ray was unremarkable. Patient has CT performed of the left shoulder which showed evidence of a large hematoma. Patient's caregiver was at bedside and believes the patient may have fallen. Patient has severe dementia and is nonverbal at baseline. She is unable to provide further history. Concern at this time for possible syncopal event. EKG was unremarkable. Troponin negative. Patient was hemodynamically stable in the emergency department. She had normal vital signs throughout her stay. CT of the shoulder did not reveal any acute fracture or dislocation, but did show evidence of hematoma. Patient was evaluated by myself as well as her primary care provider. We spoke with the caregiver at the bedside as well as the patient's who feel comfortable taking care of the patient at home. Patient was discharged in stable condition. Last Vital Signs Date Time Temp Pulse Resp B/P (MAP) Pulse Ox O2 Delivery O2 Flow Rate FiO2 04/28/20 18:09 96.6 15 143/80 97 Room Air 04/28/20 17:55 75 Gerry Rodriguez M.D. Apr 28, 2020 18:13
[2020-04-28] MEDS ORDERED: Lidocaine 1%/ 10mg/ml/EPI 0.01mg/ml 20ml INJ ONE ×3 (18:45→19:45)
[2020-04-28] MEDS ORDERED: Vancomycin 1 GM in NS 275 ML IVPB ONE (18:45)
[2020-04-28] MEDS ORDERED: cefTRIAXone 1 GM in NS 55 ML IVPB ONE (18:45)
[2020-04-28 19:16] LABS: BASOPHILS % (AUTO) 0.9 % (0.0-2.0); HEMATOCRIT 34.8 % (37.0-47.0); HEMOGLOBIN 11.5 G/DL (12.0-16.0); LYMPHOCYTES % (AUTO) 20.2 % (20.0-45.0); MEAN CORPUSCULAR VOLUME 100 FL (80-99); MONOCYTES % (AUTO) 8.6 % (1.0-10.0); NEUTROPHILS % (AUTO) 67.4 % (45.0-75.0); PLATELET COUNT 264 K/UL (150-450); RED CELL DISTRIBUTION WIDTH 13.8 % (11.6-14.8); WHITE BLOOD COUNT 9.8 K/UL (4.8-10.8)
--- NOTE | 2020-04-28 19:27 | Diagnostic Imaging Report ---
EXAM: CT Left Upper Extremity Without Intravenous Contrast, Shoulder CLINICAL HISTORY: PAIN TECHNIQUE: Axial computed tomography images of the left shoulder without intravenous contrast. CTDI is 6.7 mGy and DLP is 161.5 mGy-cm. One or more of the following dose reduction techniques were used: automated exposure control, adjustment of the mA and/or kV according to patient size, use of iterative reconstruction technique. COMPARISON: No relevant prior studies available. FINDINGS: Bones/joints: No acute fracture or dislocation. There are mild degenerative changes of the left shoulder joint. Soft tissues: There is edema in the anterior left shoulder with a large lesion involving the anterior portion of the left deltoid muscle measuring approximately 4.6 x 6.6 x 3.2 cm. IMPRESSION: Large lesion involving the anterior left deltoid muscle measures 4.6 x 6.6 x 3.2 cm. Differential diagnosis would be hematoma if there is a history of trauma. If there is no history of trauma, neoplasm is not excluded.
[2020-04-28 19:32] LABS: CALCIUM 9.1 MG/DL (8.5-10.1); POTASSIUM 3.9 MMOL/L (3.5-5.1)
[2020-04-28 19:47] LABS: ALBUMIN 3.1 G/DL (3.4-5.0); ALBUMIN/GLOBULIN RATIO 0.7 (1.0-2.7); BILIRUBIN,TOTAL 0.6 MG/DL (0.2-1.0); CKMB 1.7 NG/ML (0.0-3.6)
[2020-04-28 20:00] VITALS: BP 141/68
[2020-04-28 20:43] LABS: APPEARANCE,URINE SLIGHTLY CLOUDY; COLOR,URINE PALE YELLOW; KETONES,URINE NEGATIVE (NEGATIVE); PROTEIN,URINE NEGATIVE (NEGATIVE)
[2020-04-28 20:44] LABS: BILIRUBIN, URINE NEGATIVE (NEGATIVE); GLUCOSE, URINE (UA) NEGATIVE (NEGATIVE); LEUKOCYTE ESTERASE ,URINE 1+ (NEGATIVE); NITRITE,URINE NEGATIVE (NEGATIVE); UROBILINOGEN,URINE NORMAL MG/DL (0.0-1.0)
[2020-04-28 21:50] VITALS: BP 135/75
--- NOTE | 2020-04-29 12:23 | Diagnostic Imaging Report ---
Indication: Shoulder pain Technique: 3 views of the left shoulder Comparison: None Findings: No acute fracture or dislocation is identified. Suspected soft tissue swelling of the left shoulder/deltoid region. Imaged portions of the lung is grossly clear. Impression: No acute fracture or dislocation.
--- NOTE | 2020-04-29 12:25 | Diagnostic Imaging Report ---
Indication: Chest pain Technique: XRAY Chest 1v Comparison: 03/19/2020 Findings: Low lung volumes with expiratory/dependent atelectatic changes at the bases. No dense consolidation. No pleural effusion or pneumothorax. Bones are demineralized. There are degenerative changes in the spine. No acute osseous amount is appreciated radiographically. Heart size and mediastinal contours within normal limits and stable compared to the prior exam. There are atherosclerotic vascular calcifications. Impression: Low lung volumes with expiratory/dependent atelectatic changes at the bases.
--- NOTE | 2020-04-29 14:33 | Cardiology Report ---
APPROVED REPORT EKG Measurement Heart [id number] <Conclusion> Normal sinus rhythm Normal ECG
== END 2020-04-28 21:50 | disposition home or self-care (01) ==
LOC: EMR 18:40 → UNDOADMIN 18:58 → 2E 18:58 → EDBEDREQSVC 19:28 → EDBEDREQ 20:30 → EMR 21:50
DX: S40.012A Contusion of left shoulder, initial encounter (principal); X58.XXXA Exposure to other specified factors, initial encounter; G30.9 Alzheimer's disease, unspecified; F02.80 Dementia in other diseases classified elsewhere, unspecified severity, without behavioral disturbance, psychotic disturbance, mood disturbance, and anxiety; M06.9 Rheumatoid arthritis, unspecified; Z88.5 Allergy status to narcotic agent; Z88.2 Allergy status to sulfonamides
CPT/HCPCS: 36415; 71045; 73030; 73200; 80053; 81003; 82550; 82553; 83605; 84484; 85025; 87040; 93005; 96361; 96365; 99284; J0696; J7030